=== PATIENT | female | born 1990 | race Caucasian/White ===

== ENCOUNTER 2020-01-23 15:25 | Outpatient (CLI) | payer OTHER, SELFPAY ==
[2020-01-23 15:33] VITALS: BMI 22.6
[2020-01-23 15:34] VITALS: BP 99/67; PULSE 90; TEMP 97.4; O2SAT 100
[2020-01-23 15:39] VITALS: BP 99/67; PULSE 90
--- NOTE | 2020-01-23 17:34 | OB.TRI.NOTE ---
History of Present Illness Date of Service: 01/23/20 Was patient seen by the physician?: No Reason For Visit: EXTENDED MONITORING Date of Service: 01/23/20 Final BUSHRA: 01/25/20 Final BUSHRA Source: US <20 weeks Gestational age: 39 Weeks and 5 Days Allergies No Known Allergies Allergy (Verified 01/23/20 15:48) - Pertinent Past Medical History Medical History: Past Medical History (Last Updated 08/27/18 @ 12:30 by Snehal Salinas) CVA (cerebral vascular accident) Surgical History: Past Surgical History (Last Updated 08/27/18 @ 12:30 by Snehal Salinas) S/P LASIK surgery NST - FHR Rate Baby A Baseline: 130 Variability:: Moderate Accelerations:: 15 x 15 Decelerations:: None NST Reactive:: Yes FHR Category:: Category I Uterine Activity:: irregular Impression/Plan 29yo @ 39.5 wks, here for monitoring for FHR deceleration in office 1) NST reactive and category 1 - well being established 2) DC HOME
== END 2020-01-23 17:31 | disposition home or self-care (01) ==
LOC: WPOUT 15:28 → OBT 15:28
PROVIDERS: PCP Family Medicine; Referring Provider Obstetrics & Gynecology; Visit Provider Obstetrics & Gynecology
DX: O36.8330 Maternal care for abnormalities of the fetal heart rate or rhythm, third trimester, not applicable or unspecified (principal); Z3A.39 39 weeks gestation of pregnancy
CPT/HCPCS: 59025; 59050; 99218; G0378

== ENCOUNTER 2020-02-03 19:00 | Inpatient (IN) | payer OTHER, SELFPAY ==
[2018-08-27 12:28] VITALS: BMI 18.6
[2020-02-03 20:13] VITALS: BP 116/72; PULSE 106; TEMP 37.6
[2020-02-03 20:15] VITALS: PULSE 91; O2SAT 98
[2020-02-03 20:16] VITALS: TEMP 37.6
--- NOTE | 2020-02-03 20:28 | PCM.HP.OB ---
- Problem List (1) Post term at 41 weeks gestation Status: Acute (2) Encounter for induction of labor Status: Acute (3) Vertebral artery dissection Status: Acute (4) Aneurysm artery, neck Status: Acute (5) Intramural leiomyoma of uterus Status: Acute History Date of Admission: 02/03/20 Final BUSHRA: 01/27/20 Final BUSHRA Source: US <20 weeks Gestational age: 41 Weeks and 0 Days History of this : This is a 29 year-old, G [1], P [0], at 41 weeks gestational age by LMP, confirmed by ultrasound. Presents for induction of labor post dates. uncomplicated. Medical History: Medical History (Last Updated 08/27/18 @ 12:30 by Snehal Salinas) CVA (cerebral vascular accident) I63.9 Surgical History: Surgical History (Last Updated 08/27/18 @ 12:30 by Snehal Salinas) S/P LASIK surgery Z98.890 Allergies No Known Allergies Allergy (Verified 02/03/20 20:21) Home Medications: Home Medications Vits [Prenatabs FA] 1 tab PO DAILY 02/03/20 Smoking Status: Never smoker Alcohol: None Number of Fetus(es): 1 NST - FHR Rate Baby A Baseline: 145 Variability:: Moderate Accelerations:: 15 x 15 Decelerations:: Late FHR Category:: Category II Uterine Activity:: None History Past Pregnancies: Past Pregnancies Delivery Date Name GA/ Weeks Outcome Route Wt Sex Labor Length Anesthesia Delivery Location Provider FOB Labs: Mom's Problem List Problem Status Onset Code Post term at 41 weeks gestation Acute O48.0, Z3A.41 Encounter for induction of labor Acute Z34.90 Vertebral artery dissection Acute I77.74 Aneurysm artery, neck Acute I72.0 Intramural leiomyoma of uterus Acute D25.1 Social History Smoking Status Never smoker GBS negative RPR negative Rubella equivocal HBsAG Negative HIV Negative B positive GC/CT negative Expected Infant Delivery Method: Spontaneous Vaginal Review of Systems Constitutional: Denies: Chills, Fever, Weight Change HEENT: Denies: Head Aches, Sinus Congestion, Sinus Drainage Cardiovascular: Denies: Chest Pain, Palpitations Respiratory: Denies: Cough, Shortness of breath at rest, Sputum production Gastrointestinal: Denies: Abdominal Pain, Nausea, Vomiting Genitourinary: Denies: Dysuria Neurological: Denies: Numbness, Tingling, Focal weakness Psychiatric: Denies: Anxiety, Depression, Homicidal Ideations, Suicidal Ideations Physical Exam Vitals: Vital Signs Temp Pulse BP Pulse Ox 99.7 F H 91 116/72 98 02/03/20 20:16 02/03/20 20:15 02/03/20 20:13 02/03/20 20:15 General: Alert, Oriented x3, Cooperative HEENT: Atraumatic, Normocephalic Cardiovascular: Regular rate, Regular Rhythm, No murmurs Lungs: Clear to auscultation, Normal air movement, No rhonchi, No wheeze Abdomen: Bowel Sounds Present, Gravid Extremities:: No edema Neurological: Deep Tendon Reflexes 2+/4 and Symmetrical. Negative for: Clonus COOKING SHOW HOST: Normal external genitalia Estimated gestational size: Appropriate for gestational size Presentation: Cephalic Cervix Dilation (cm): 1.5 - transcervical bradford catheter placed into cervical os without difficulty. Patient tolerated well. Station: -1 Effacement (%): 60 Assessment/Plan All Active Problems (Last Updated 08/27/18 @ 12:30 by Snehal Salinas) Post term at 41 weeks gestation (Acute) Encounter for induction of labor (Acute) Vertebral artery dissection (Acute) Aneurysm artery, neck (Acute) Intramural leiomyoma of uterus (Acute) This is a 29 year-old, G [1], P [0], at 41 weeks gestational age. A:Induction of labor Category 2 FHT P: 1) Admit for Induction of labor 2) Saline lock, routine labs 3) Bradford with low dose Pitocin. Unable to use cytotec due to occasional late deceleration. Reviewed risk 4) Epidural for pain management upon patient request 5) History of vertebral artery dissection with likely ischemic stroke/TIA in 08/2016. Seen Dr. Valdivia [facility] during . Ok for vaginal delivery from stroke standpoint and does not think high risk for complications. Avoid prolonged second stage and encourage open glottis pushing. Does not need aspirin or section. See official report in chart. 6) collaborative physician and updated on patient status
[2020-02-03 20:56] LABS: Absolute Lymphocyte Count 1.63 X10^3/uL (0.83-4.51); Absolute Neutrophil Count 6.7 X10^3/uL (2.0-7.7); Basophil# 0.02 X10^3/uL; Basophil% 0.2 % (0-1); Eosinophil# 0.02 X10^3/uL; Eosinophils% 0.2 % (0-5); Hematocrit 35.4 % (37-47); Hemoglobin 12.1 g/dL (12.0-15.0); Lymphocyte # 1.63 X10^3/ul (4.0); Lymphocyte % 17.9 % (19-41); Mean Corp Hgb Conc 34.2 g/dL (32-36); Mean Corpuscular Hgb 29.9 pg (27.0-32.0); Mean Corpuscular Volume 87.4 fL (81-99); Mean Platelet Vol. 10.2 fl (6.2-12.0); Monocyte# 0.65 X10^3/uL; Monocyte% 7.1 % (0-10); NRBC Flagged by Analyzer 0 % (0-5); Neutrophil # 6.74 X10^3/uL (2.7-7.7); Neutrophil % 73.8 % (47-70); Platelet Count 246 K/mm3 (150-450); RBC Distribution Width CV 13.2 % (11.6-14.6); RBC Distribution Width SD 41.3 fl (35.1-43.9); Red Blood Count 4.05 M/mm3 (4.2-5.4); White Blood Count 9.1 K/mm3 (4.4-11.0)
[2020-02-03 21:43] VITALS: BMI 23.9
[2020-02-03] MEDS: 0.9% Normal Saline Single 100 ML IV.SOLN. IY (21:55)
[2020-02-03 22:09] VITALS: BP 112/69; PULSE 101
[2020-02-03] MEDS: Lactated Ringers 1,000 ML 50 ML IV (22:23)
[2020-02-03 23:27] VITALS: BP 102/67; PULSE 108
[2020-02-04] VITALS (42 sets, daily range): BP systolic 88–120; BP diastolic 51–73; PULSE 69–112; RESP 15–18; TEMP 36.3–37.3; O2SAT 90–100
[2020-02-04] MEDS: Oxytocin 30 units/NS 500 ml 30 UNITS/500 ML IV.SOLN IV (00:10)
[2020-02-04] MEDS: Lactated Ringers 1,000 ML 200 ML IV ×2 (05:05→10:32)
[2020-02-04] MEDS: Lactated Ringers 500 ML 999 ML IV ×2 (05:25→07:54)
[2020-02-04] MEDS: fentaNYL-bupivacaine (epidural) 100 ML BAG EPIDURAL ×2 (06:44→10:46)
[2020-02-04] MEDS: Ondansetron 4 MG/2 ML Vial IV (07:55)
[2020-02-04] MEDS: Oxytocin 30 units/NS 500 ml 30 UNITS/500 ML IV.SOLN 334 UNITS IV (13:43)
--- NOTE | 2020-02-04 14:02 | PCM.OPRPT ---
Vaginal Delivery Maternal Presentation: Medically Indicated Induction Method of Induction: Pitocin, Negron Bulb, Amniotomy, Cytotec Medical Reason for Induction: - - 41 weeks Amniotic Membrane Rupture Type: Artificial Amniotic Fluid Description: Moderate meconium Final BUSHRA: 01/27/20 Gestational age: 41 Weeks and 1 Days Date of Procedure: 02/04/20 Pre-Operative Diagnosis: labor, MSf Post-Operative Diagnosis: same Surgery/ Procedure Performed: Spontaneous Vaginal Delivery Type of Anesthesia: Epidural Description of Procedure: A vigorous female was delivered SIXTO over bilateral first-degree vaginal lacerations. A tight nuchal cord x1 was reduced. The remainder the was delivered with maternal pushing and gentle traction only in less than 15 seconds. The Pitocin infusion was initiated for active management of the third stage. The cord was clamped and cut after 1 minute. The was attended to by the waiting nursing staff. The placenta was delivered spontaneously and intact. The cervix and vagina were intact. The small vaginal lacerations on both sides were repaired with 3-0 Vicryl Rapide in a running locked fashion. Hemostasis was noted. Sponge and needle counts were correct. A vaginal sweep was completed by me. Presentation: SIXTO Placental Delivery Description: Spontaneous Placenta Disposition: [facility] Cord Vessel Description: 3 Vessels Nuchal Cord Compression: Without compression Cord Entanglement: Around neck x 1, tight Drain: Negron to straight drain Estimated Blood Loss: 400 Infant A gender: Female Episiotomy Description: None Laceration: 1st degree - vaginal Medications given after delivery: IV Pitocin Complications: None
--- NOTE | 2020-02-04 22:50 | NURSING ---
pt able to void, RN overheard. large void noted but pt missed hat
[2020-02-05] VITALS (13 sets, daily range): BP systolic 83–104; BP diastolic 52–60; PULSE 73–99; RESP 16–20; TEMP 36.3–36.9; O2SAT 98
[2020-02-05] MEDS: Senna/Docusate Sodium 1 Tablet PO (02:12)
[2020-02-05] MEDS: Naproxen 250 MG Tablet 500 MG PO ×2 (02:12→15:56)
--- NOTE | 2020-02-05 09:03 | PCM.PN.OB ---
Patient Problems: Active and Suspected Problems (Last Updated 08/27/18 @ 12:30 by Snehal Salinas) Post term at 41 weeks gestation (Acute) Encounter for induction of labor (Acute) Vertebral artery dissection (Acute) Aneurysm artery, neck (Acute) Intramural leiomyoma of uterus (Acute) Subjective: pain well controlled, average lochia - Physical Exam Vitals/I&O's: Vital Signs Temp Pulse Resp BP Pulse Ox 97.7 F L 91 20 H 86/55 L 98 02/05/20 08:46 02/05/20 08:47 02/05/20 08:45 02/05/20 08:47 02/05/20 08:45 Oxygen Delivery Method Room Air Weight: 61.235 kg Body Mass Index (BMI) 23.9 Finger Stick Blood Glucose 160 Intake and Output for Last 24 Hours 02/03/20 02/04/20 02/05/20 23:59 23:59 23:59 Intake Total 4161.37 / 4161.37 Output Total 2200 / 2200 Balance 1961.37 / 1961.37 General: Alert, Cooperative, No apparent distress Current Medications Acetaminophen (Tylenol) 1,000 mg PO Q8H PRN PRN PRN Reason: Pain Score 1-3/10 Bisacodyl (Dulcolax) 10 mg RECTAL UD PRN PRN Reason: If no BM Dibucaine (Dibucaine) 1 applic TOPICAL TID PRN PRN; Protocol PRN Reason: Discomfort Hydrocortisone (Hytone) 1 applic TOPICAL TID PRN PRN; Protocol PRN Reason: Discomfort Methylergonovine Maleate (Methergine) 0.2 mg IM X1 PRN PRN Reason: Excess bleeding/uterine atony Naproxen (Naprosyn) 500 mg PO Q8H PRN PRN PRN Reason: Pain Score 1-3/10 Last Admin: 02/05/20 02:12 Dose: 500 mg Documented by: Ondansetron HCl (Zofran) 4 mg IV Q4H PRN PRN PRN Reason: Nausea Prochlorperazine Edisylate (Compazine Iv) 10 mg IV Q6H PRN PRN PRN Reason: NAUSEA/VOMITING Senna/Docusate Sodium (Senokot-S, Chloe-Colace) 1 - 2 tablet PO DAILY PRN PRN PRN Reason: Constipation Last Admin: 02/05/20 02:12 Dose: 2 tablet Documented by: Simethicone (Mylicon) 80 mg PO HS PRN PRN Reason: Indigestion/Stomach pain Sodium Chloride () 5 - 15 ml IV UD PRN PRN Reason: SALINE FLUSH Medical Necessity - Tobacco Use Smoking Status: Never smoker Assessment/Plan All Active Problems (Last Updated 08/27/18 @ 12:30 by Snehal Salinas) Post term at 41 weeks gestation (Acute) Encounter for induction of labor (Acute) Vertebral artery dissection (Acute) Aneurysm artery, neck (Acute) Intramural leiomyoma of uterus (Acute) PPD#1 doing well routine care and doing well
[2020-02-06 01:05] VITALS: BP 94/52; PULSE 64; PULSE 90; RESP 14; TEMP 36.8
[2020-02-06] MEDS: Naproxen 250 MG Tablet 500 MG PO (02:19)
--- NOTE | 2020-02-06 08:22 | PCM.PN.OB ---
Patient Problems: Active and Suspected Problems (Last Updated 08/27/18 @ 12:30 by Snehal Salinas) Post term at 41 weeks gestation (Acute) Encounter for induction of labor (Acute) Vertebral artery dissection (Acute) Aneurysm artery, neck (Acute) Intramural leiomyoma of uterus (Acute) Subjective: Pain well controlled. Average lochia without difficulty. No bowel movement yet but passing gas. Tolerating regular diet. - Physical Exam Vitals/I&O's: Vital Signs Temp Pulse Resp BP Pulse Ox 98.2 F 64 14 94/52 L 98 02/06/20 01:05 02/06/20 01:05 02/06/20 01:05 02/06/20 01:05 02/05/20 12:20 Oxygen Delivery Method Room Air Weight: 61.235 kg Body Mass Index (BMI) 23.9 Finger Stick Blood Glucose 160 Intake and Output for Last 24 Hours 02/04/20 02/05/20 02/06/20 23:59 23:59 23:59 Intake Total 4161.37 / 4161.37 Output Total 2200 / 2200 Balance 1961.37 / 1961.37 General: Alert, Cooperative, No apparent distress Current Medications Acetaminophen (Tylenol) 1,000 mg PO Q8H PRN PRN PRN Reason: Pain Score 1-3/10 Bisacodyl (Dulcolax) 10 mg RECTAL UD PRN PRN Reason: If no BM Dibucaine (Dibucaine) 1 applic TOPICAL TID PRN PRN; Protocol PRN Reason: Discomfort Hydrocortisone (Hytone) 1 applic TOPICAL TID PRN PRN; Protocol PRN Reason: Discomfort Methylergonovine Maleate (Methergine) 0.2 mg IM X1 PRN PRN Reason: Excess bleeding/uterine atony Naproxen (Naprosyn) 500 mg PO Q8H PRN PRN PRN Reason: Pain Score 1-3/10 Last Admin: 02/06/20 02:19 Dose: 500 mg Documented by: Ondansetron HCl (Zofran) 4 mg IV Q4H PRN PRN PRN Reason: Nausea Prochlorperazine Edisylate (Compazine Iv) 10 mg IV Q6H PRN PRN PRN Reason: NAUSEA/VOMITING Senna/Docusate Sodium (Senokot-S, Chloe-Colace) 1 - 2 tablet PO DAILY PRN PRN PRN Reason: Constipation Last Admin: 02/05/20 02:12 Dose: 2 tablet Documented by: Simethicone (Mylicon) 80 mg PO PCHS PRN PRN Reason: Indigestion/Stomach pain Sodium Chloride () 5 - 15 ml IV UD PRN PRN Reason: SALINE FLUSH Medical Necessity - Tobacco Use Smoking Status: Never smoker Assessment/Plan All Active Problems (Last Updated 08/27/18 @ 12:30 by Snehal Salinas) Post term at 41 weeks gestation (Acute) Encounter for induction of labor (Acute) Vertebral artery dissection (Acute) Aneurysm artery, neck (Acute) Intramural leiomyoma of uterus (Acute) day #2 status post vaginal delivery. Patient doing well. Working on breast-feeding. Discharge home today.
--- NOTE | 2020-02-06 08:24 | DCINST_ITS ---
Discharge Diet: No Restrictions Discharge Activity: Return to Normal Activity, May not drive while taking narcotic pain medications., May Shower May resume sexual activity in: 4-6 weeks Additional Activity Instructions:: Nothing in the vagina for 4-6 weeks. You may return to work/school in 6 weeks. Call your doctor if your incision/area has: Continuous Slow Oozing, Sudden Increased Bleeding, Increased Pain/ Swelling, Increased Redness, Foul Smelling Discharge Additional Instructions: If you experience any of the following, contact your healthcare provider. * Bleeding that soaks a pad every hour for 2 hours * Fever 100.4 or higher * Unrelieved incision or abdominal pain * Swelling, redness, discharge or bleeding from your incision or episiotomy site * Your incision begins to separate * Problems urinating (including inability to urinate or burning while urinating). * Visual changes * Severe headache * Flu-like symptoms * Pain or redness in one of both of your breasts * Pain, warmth, tenderness or swelling in your legs, especially the calf area * Frequent nausea and vomiting * Symptoms of depression or anxiety If you experience any of the following, call 911 or go to the nearest Emergency Room. * Chest pain * Problems breathing * Seizure activity * Partial or complete paralysis of a body part, slurred speech, weakness or drooping of the face, or a sudden inability to walk or hold your balance Allergies/Adverse Reactions: Allergies No Known Allergies Allergy (Verified 02/03/20 20:21) Medications to take at Discharge Vits [Prenatabs FA ] 1 tab PO DAILY 02/03/20 Please Follow Up With: Loree Dasilva MD - [phone] When: Call to make an appointment with your provider's office in 1-2 and 6 weeks or as needed Primary Care Physician: Zuleima Carnes MD [Primary Care Provider] - Test Results: Test results from this visit will be discussed in further detail at your follow- up appointment, if applicable.
--- NOTE | 2020-02-06 08:24 | PCM.DCVAG ---
Discharge Diet: No Restrictions Discharge Activity: Return to Normal Activity, May not drive while taking narcotic pain medications., May Shower May resume sexual activity in: 4-6 weeks Additional Activity Instructions:: Nothing in the vagina for 4-6 weeks. You may return to work/school in 6 weeks. Call your doctor if your incision/area has: Continuous Slow Oozing, Sudden Increased Bleeding, Increased Pain/ Swelling, Increased Redness, Foul Smelling Discharge Additional Instructions: If you experience any of the following, contact your healthcare provider. Bleeding that soaks a pad every hour for 2 hours Fever 100.4 or higher Unrelieved incision or abdominal pain Swelling, redness, discharge or bleeding from your incision or episiotomy site Your incision begins to separate Problems urinating (including inability to urinate or burning while urinating). Visual changes Severe headache Flu-like symptoms Pain or redness in one of both of your breasts Pain, warmth, tenderness or swelling in your legs, especially the calf area Frequent nausea and vomiting Symptoms of depression or anxiety If you experience any of the following, call 911 or go to the nearest Emergency Room. Chest pain Problems breathing Seizure activity Partial or complete paralysis of a body part, slurred speech, weakness or drooping of the face, or a sudden inability to walk or hold your balance Allergies/Adverse Reactions: Allergies No Known Allergies Allergy (Verified 02/03/20 20:21) Medications to take at Discharge Vits [Prenatabs FA ] 1 tab PO DAILY 02/03/20 Please Follow Up With: Loree Dasilva MD - [phone] When: Call to make an appointment with your provider's office in 1-2 and 6 weeks or as needed Primary Care Physician: Zuleima Carnes MD [Primary Care Provider] - Test Results: Test results from this visit will be discussed in further detail at your follow-up appointment, if applicable.
[2020-02-06 09:30] VITALS: BP 105/69; PULSE 89; RESP 16; TEMP 36.8
[2020-02-06 09:59] VITALS: BP 105/69; PULSE 89; TEMP 36.8
== END 2020-02-06 13:00 | disposition home or self-care (01) | DRG 807 ==
PROVIDERS: Obstetrics & Gynecology; Admitting Provider Obstetrics & Gynecology; PCP Family Medicine; Referring Provider Obstetrics & Gynecology; Visit Provider Advanced Practice Midwife
DX: O48.0 Post-term pregnancy (principal); Z37.0 Single live birth; Z3A.41 41 weeks gestation of pregnancy; D25.1 Intramural leiomyoma of uterus; O34.13 Maternal care for benign tumor of corpus uteri, third trimester; O70.0 First degree perineal laceration during delivery; O76 Abnormality in fetal heart rate and rhythm complicating labor and delivery; O69.1XX0 Labor and delivery complicated by cord around neck, with compression, not applicable or unspecified
CPT/HCPCS: 59025; 59050; 85025; 86850; 86900; 86901; 99218; J7120; G0378; J2405

== ENCOUNTER → 2020-02-12 11:45 | Outpatient (CLI) | payer OTHER, SELFPAY ==
[2020-02-03 21:43] VITALS: BMI 23.9
== END ==
PROVIDERS: PCP Family Medicine; Referring Provider Obstetrics & Gynecology; Visit Provider Obstetrics & Gynecology
DX: R63.3 Feeding difficulties (principal)
CPT/HCPCS: 96158

== ENCOUNTER → 2020-10-10 13:37 | Outpatient (CLI) | payer OTHER, SELFPAY ==
[2020-10-10 15:55] LABS: Thyroid Stim Hormone (TSH) 2.68 uIU/mL (0.358-3.74)
== END ==
PROVIDERS: PCP Family Medicine; Referring Provider Family Medicine; Visit Provider Family Medicine
DX: R53.83 Other fatigue (principal)
CPT/HCPCS: 36415; 84443

== ENCOUNTER → 2021-07-28 16:51 | Outpatient (CLI) | payer OTHER, SELFPAY | PROVIDERS: PCP Family Medicine; Visit Provider Family Medicine | DX: Z20.822 Contact with and (suspected) exposure to COVID-19 (principal) | CPT/HCPCS: 87635; U0005; U0003 ==

== ENCOUNTER 2022-03-19 06:00 | Day surgery (SDC) | payer OTHER, SELFPAY ==
--- NOTE | 2022-03-18 15:57 | PCM.HP.BLA ---
History and Physical Date of Admission: 03/19/22 Pre-Op History and Physical HPI: The patient is a 31 year old female presenting for pre-operative visit. She is scheduled for Suction D&C, for 11week size SAB on 03/19/22. Procedure discussed along with risks, benefits and complications. Other alternatives discussed for management. Consent form signed? Yes. PAST MEDICAL HISTORY Diagnosis Date ? Craniostenosis ? anxiety ? anxiety ? Stroke, vertebral artery (HCC) 09/08/2016 Right vertebral artery disection ? Uterine fibroid seen on ultrasound 09/06/2019 PAST SURGICAL HISTORY Procedure Laterality Date ? INSERTION OF IUD 06/29/2017 paragard-removed ? LASIK 2014 both eyes ? PAST SURGICAL HISTORY OF Craniostenosis Current Outpatient Medications Medication Sig Dispense Refill ? pyridoxine HCl, vitamin B6, (VITAMIN B-6 ORAL) Take by mouth. ? doxylamine succinate (UNISOM, DOXYLAMINE, ORAL) Take by mouth. ? ondansetron (ZOFRAN) 8 mg tablet Take 1 tablet by mouth every 8 hours as needed for nausea/vomiting. 1/2 TO ONE PO 30 tablet 1 ? [id number]-Ngp-Fe-FA ( VITAMIN) tab Take 1 tablet by mouth once daily. ? miSOPROStol (CYTOTEC) 200 mcg tablet Use 2 tablets vaginally one time only for [address] 2 tablets vaginally the morning of the procedure 2 tablet 0 No current facility-administered medications for this visit. ALLERGIES: Patient has no known allergies. PERSONAL HISTORY: Social History Tobacco Use ? Smoking status: Never Smoker ? Smokeless tobacco: Never Used Vaping Use ? Vaping Use: Never used Substance Use Topics ? Alcohol use: Not Currently Comment: rare ? Drug use: No FAMILY HISTORY: FAMILY HISTORY Problem Relation Age of Onset ? Cancer Mother lymphoma ? Heart Father ? other (benign brain tumor) Father ? None Sister ? None Sister ? None Brother ? other (other) Maternal Grandmother ? Parkinson?s Disease Maternal Grandfather ? Macular Degen Paternal Grandmother ? other (ALS) Paternal Grandfather ? No Known Problems Daughter REVIEW OF SYMPTOMS: GENERAL: denies fevers or chills ENDOCRINOLOGY: has not been on steroids Cardiology : denies palpitations or chest pain Respiratory: denies SOB or cough Hematology: denies history of prolonged bleeding or easy bruising or VTE Allergy: Denies history of personal or family history of allergy to anesthesia PHYSICAL EXAMINATION: VITALS: Blood pressure 104/62, weight 110 lb (49.9 kg), last menstrual period 11/18/2021. GENERAL: The patient is well nourished, well hydrated in no acute distress. , The patient is oriented to time, place, and person. NECK: Supple. No lynphadenopathy, normal thyroid, no thyromegaly. LUNGS: Clear to auscultation bilaterally. no wheezes, rhonchi or rales HEART: Regular rate and rhythm, Normal heart sounds and No murmurs or gallops GENITALIA: Normal external genitalia, Urethral meatus normal, Bladder nontender, normal vagina and normal vaginal tone, normal cervix, normal uterus, size and consistency, normal adnexa without masses or tenderness and perineum WNL IMPRESSION: @ 17w1d by dates, 11w 3 days CRL without cardiac activity PLAN: The risks/benefits/alternatives and personal involved for the planned suction D&C were reviewed with the patient. Her questions were answered to her satisfaction and she desires to proceed. Consent was signed. I reviewed with her postop instructions and expectations. I have reviewed and updated past medical and surgical history, medications and allergies Assessment & Plan Assessment/Plan (1) Missed with demise before 20 completed weeks of gestation:
[2022-03-19] VITALS (7 sets, daily range): BP systolic 101–110; BP diastolic 48–79; PULSE 64–86; RESP 10–18; TEMP 37.2–37.4; O2SAT 99–100; BMI 19.1
--- NOTE | 2022-03-19 | POC_PTH ---
PATIENT: PAGE MEANS [place] [facility] [place][id number] AGE/SX: 31/F ROOM: RE03/19/[address]: Dr. Loree Dasilva MD : 1990 BED: DIS: 03/19/2022 SPEC #: [id number] RECD: 03/19/22 11:01 STATUS: BRADY ARMIJO #: [id number] HIEN: 03/19/22 00:[address]: Loree Dasilva DEPT: SURGICAL PATHOLOGY RECD BY: Arnel Lovett ENTERED: 03/19/22 11:02 SP TYPE: PROD CONC OTHR DR: Dr. Zuleima Carnes MD Tissues: Product of conception, NOS Procedures: Surgery Specimen Level IV HEADER OPERATION: Suction dilation and curettage, Anora testing PRE-OP DIAGNOSIS: Missed with demise before 20 completed weeks of gestation TISSUE SUBMITTED: Products of conception MICROSCOPIC DIAGNOSIS Products of conception: Immature chorionic villi and decidua (products of conception). See comment. PHILLY:raven 03/22/2022 COMMENT Results of Anora study will be reported as an addendum. MICROSCOPIC DESCRIPTION Slides are reviewed. GROSS DESCRIPTION Received in fixative is one container labeled with the patient's name and designated products of conception. The specimen consists of multiple irregular fragments of pink-toribio soft tissue that in aggregate measure 12 x 12 x 2 cm. parts are not grossly recognized. Manufacturing Teacher portions are submitted for Anora. Manufacturing Teacher portions are submitted in one cassette. / AM:raven 03/19/2022 TC:5 CPT: 44257
[2022-03-19 07:15] LABS: Hematocrit 39.1 % (37-47); Hemoglobin 13.5 g/dL (12.0-15.0); Mean Corp Hgb Conc 34.5 g/dL (32-36); Mean Corpuscular Hgb 29.1 pg (27.0-32.0); Mean Corpuscular Volume 84.3 fL (81-99); Mean Platelet Vol. 9.8 fl (6.2-12.0); Platelet Count 271 K/mm3 (150-450); RBC Distribution Width CV 12.7 % (11.6-14.6); RBC Distribution Width SD 38.4 fl (35.1-43.9); Red Blood Count 4.64 M/mm3 (4.2-5.4); White Blood Count 6.3 K/mm3 (4.4-11.0)
[2022-03-19] MEDS: Lactated Ringers 1,000 ML 70 ML IV (07:16)
[2022-03-19] MEDS: Doxycycline 100 MG CAPSULE 200 MG PO (07:17)
[2022-03-19] MEDS: Acetaminophen 500 MG Tablet 1000 MG PO (07:17)
[2022-03-19] MEDS: Lidocaine 1% /Epi 1:100 (20ml) 20 ML Vial (07:45)
[2022-03-19 08:03] LABS: hCG Titer Quant., Serum 65751 mIU/mL (1-3)
--- NOTE | 2022-03-19 08:05 | OP.PCM_ITS ---
Report of Operation Date of Procedure: 03/19/22 Pre-Operative Diagnosis: missed , 17 weeks Post-Operative Diagnosis: same Surgery/Procedure Performed:: suction D&C under ultrasound guidance Description of Surgical Findings:: Normal cervix and vagina. Antevereted uterus, 14 week size. Large amount of products of conception Surgeon: Loree Dasilva automatic furnace operator: None Type of Anesthesia: MAC/Supplemental/Local Anesthesiologist: Dustin Patel Special Medications: none Specimen's removed: products of conception Drains: none Estimated Blood Loss (mL): 30 Fluids Replaced: 500 Description of Procedure: The patient was taken to the operating room where she was prepped and draped in a dorsolithotomy position. A bimanual examination was done and confirmed the uterus to be 14 weeks size and [anteverted]. A weighted speculum was placed in the vagina and the anterior lip of the cervix was grasped with a single-tooth tenaculum. 10 cc of 1% lidocaine with dilute epinephrine solution were used for paracervical block. The cervix was dilated serially. A 12 mm suction curette was placed to the uterine fundus and the suction was created. Several passes were made to remove clots and products of conception. When minimal tissue was returning a gentle sharp curettage was then done of the uterine cavity. The uterine cry was appreciated and another gentle pass was made with the suction curette. At this point there is no active bleeding from the uterus and minimal blood and no further products of conception were removed. The instruments removed from the cervix and the cervix was observed and no active bleeding was identified. The tenaculum was removed off the cervix and hemostasis of the tenaculum site was assured. The instruments were removed from the vagina and the vaginal sweep was completed by me. Sponge and needle counts were correct. The patient was taken to the recovery room in stable condition. Findings: 14 week size uterus, normal cervix and vagina. Specimen: Products of conception Grafts/Implants Used: none Procedure Start Time: 07:45 Procedure Stop Time: 08:00 Complications none Admit VTE Documentation VTE Present on Admission: No VTE Mechan Device Prophylaxis: SCD's VTE Pharm Prophylaxis ordered?: No Reason prophylaxis not ordered:: Procedure Not Indicated
--- NOTE | 2022-03-19 08:08 | PCM.DC ---
Discharge Instructions Diet Discharge Diet: No restrictions Activity May resume sexual activity in: 2 weeks Lifting Restrictions: none Dressing / Incision Call your doctor if your incision/area has: Sudden Increased Bleeding and Foul Smelling Discharge Call your doctor if you observe: Fever of 101 or Higher and Using more than 1 pad per hour (for 2 hrs in a row) Follow Up Care Please Follow Up With: Loree Dasilva MD When: 2-4 weeks or as needed. Call [phone] to make an appointment or with any concerns. Test Results: Test results from this visit will be discussed in further detail at your follow-up appointment, if applicable. Discharge Plan Admission Primary Reason for Your Visit: Suction D&C Attending Provider: Loree Dasilva Primary Care Provider: Zuleima Carnes Discharge Orders/Prescriptions Prescriptions: Continued vit,[id number] 1 TABLET tablet 1 tab PO DAILY RF: 0 ondansetron HCl 4 mg Tablet 4 mg PO Q6H PRN (Reason: Nausea) RF: 0 Discontinued misoprostol 200 mcg tablet 400 mcg vaginal X1 RF: 0 Referrals / Follow Up: Zuleima Carnes MD [Primary Care Provider] - Disposition Disposition (needs filled in before D/C Order can be placed): Home, Self Care
[2022-03-24 08:28] LABS: Pathology Specimen OB SEE PATHOLOGY REPORT
== END 2022-03-19 23:59 | disposition home or self-care (01) ==
LOC: SDC 06:03 → AC 06:04
PROVIDERS: PCP Family Medicine; Referring Provider Obstetrics & Gynecology; Visit Provider Obstetrics & Gynecology
DX: O02.1 Missed abortion (principal); Z3A.17 17 weeks gestation of pregnancy
CPT/HCPCS: 59820; 01965; 84702; 85027; 86850; 86900; 86901; 87426; 88305; J7120; J2405

== ENCOUNTER → 2022-04-08 | Outpatient (CLI) | payer OTHER, SELFPAY ==
[2022-04-08 18:15] LABS: hCG Titer Quant., Serum 79 mIU/mL (1-3)
== END | disposition home or self-care (01) ==
LOC: LAB.FUTURE 15:37
PROVIDERS: PCP Family Medicine; Visit Provider Obstetrics & Gynecology
DX: O08.89 Other complications following an ectopic and molar pregnancy (principal)
CPT/HCPCS: 36415; 84702

== ENCOUNTER 2022-04-15 13:45 | Outpatient (CLI) | payer OTHER, SELFPAY ==
[2022-04-15 16:27] LABS: hCG Titer Quant., Serum 49 mIU/mL (1-3)
== END 2022-04-15 23:59 | disposition home or self-care (01) ==
LOC: MFPLAB 13:48
PROVIDERS: PCP Family Medicine; Referring Provider Family Medicine; Visit Provider Obstetrics & Gynecology
DX: O08.89 Other complications following an ectopic and molar pregnancy (principal)
CPT/HCPCS: 36415; 84702

== ENCOUNTER 2022-04-22 14:32 | Outpatient (CLI) | payer OTHER, SELFPAY ==
[2022-04-22 20:20] LABS: hCG Titer Quant., Serum 27 mIU/mL (1-3)
== END 2022-04-22 23:59 | disposition home or self-care (01) ==
LOC: MFPLAB 14:35
PROVIDERS: PCP Family Medicine; Referring Provider Family Medicine; Visit Provider Obstetrics & Gynecology
DX: O08.89 Other complications following an ectopic and molar pregnancy (principal)
CPT/HCPCS: 36415; 84702

== ENCOUNTER → 2022-04-29 | Outpatient (CLI) | payer OTHER, SELFPAY ==
[2022-04-29 18:08] LABS: hCG Titer Quant., Serum 17 mIU/mL (1-3)
== END | disposition home or self-care (01) ==
LOC: MFPLAB 16:07
PROVIDERS: PCP Family Medicine; Visit Provider Obstetrics & Gynecology
DX: O08.89 Other complications following an ectopic and molar pregnancy (principal)
CPT/HCPCS: 36415; 84702

== ENCOUNTER → 2022-05-06 | Outpatient (CLI) | payer OTHER, SELFPAY ==
[2022-05-06 15:57] LABS: hCG Titer Quant., Serum 12 mIU/mL (1-3)
== END | disposition home or self-care (01) ==
LOC: MFPLAB 14:13
PROVIDERS: PCP Family Medicine; Referring Provider Family Medicine; Visit Provider Obstetrics & Gynecology
DX: O08.89 Other complications following an ectopic and molar pregnancy (principal)
CPT/HCPCS: 36415; 84702

== ENCOUNTER → 2022-05-13 | Outpatient (CLI) | payer OTHER, SELFPAY ==
[2022-05-13 18:51] LABS: hCG Titer Quant., Serum 9 mIU/mL (1-3)
== END | disposition home or self-care (01) ==
LOC: MFPLAB 16:36
PROVIDERS: PCP Family Medicine; Referring Provider Family Medicine; Visit Provider Obstetrics & Gynecology
DX: O08.89 Other complications following an ectopic and molar pregnancy (principal)
CPT/HCPCS: 36415; 84702

== ENCOUNTER → 2022-05-20 | Outpatient (CLI) | payer OTHER, SELFPAY ==
[2022-05-20 17:49] LABS: hCG Titer Quant., Serum 7 mIU/mL (1-3)
== END | disposition home or self-care (01) ==
LOC: MFPLAB 15:50
PROVIDERS: PCP Family Medicine; Referring Provider Family Medicine; Visit Provider Obstetrics & Gynecology
DX: O08.89 Other complications following an ectopic and molar pregnancy (principal)
CPT/HCPCS: 36415; 84702

== ENCOUNTER → 2022-05-28 | Outpatient (CLI) | payer OTHER, SELFPAY ==
[2022-05-28 18:41] LABS: hCG Titer Quant., Serum 5 mIU/mL (1-3)
== END | disposition home or self-care (01) ==
LOC: MFPLAB 14:31
PROVIDERS: PCP Family Medicine; Visit Provider Obstetrics & Gynecology
DX: O08.89 Other complications following an ectopic and molar pregnancy (principal)
CPT/HCPCS: 36415; 84702

== ENCOUNTER → 2022-06-04 | Outpatient (CLI) | payer OTHER, SELFPAY ==
[2022-06-04 18:03] LABS: hCG Titer Quant., Serum 4 mIU/mL (1-3)
== END | disposition home or self-care (01) ==
LOC: MFPLAB 15:33
PROVIDERS: PCP Family Medicine; Visit Provider Obstetrics & Gynecology
DX: O08.89 Other complications following an ectopic and molar pregnancy (principal)
CPT/HCPCS: 36415; 84702

== ENCOUNTER → 2022-06-17 | Outpatient (CLI) | payer OTHER, SELFPAY ==
[2022-06-17 18:08] LABS: hCG Titer Quant., Serum 3 mIU/mL (1-3)
== END | disposition home or self-care (01) ==
PROVIDERS: PCP Family Medicine; Referring Provider Family Medicine; Visit Provider Obstetrics & Gynecology
DX: O08.89 Other complications following an ectopic and molar pregnancy (principal)
CPT/HCPCS: 36415; 84702

== ENCOUNTER → 2022-07-02 | Outpatient (CLI) | payer OTHER, SELFPAY ==
[2022-07-02 17:49] LABS: hCG Titer Quant., Serum 2 mIU/mL (1-3)
== END | disposition home or self-care (01) ==
PROVIDERS: PCP Family Medicine; Referring Provider Family Medicine; Visit Provider Obstetrics & Gynecology
DX: O08.89 Other complications following an ectopic and molar pregnancy (principal)
CPT/HCPCS: 36415; 84702

== ENCOUNTER → 2022-07-26 | Outpatient (CLI) | payer OTHER, SELFPAY ==
[2022-07-26 11:52] LABS: hCG Titer Quant., Serum < 1 mIU/mL (1-3)
[2022-07-26 13:18] LABS: Progesterone Level 13.92 ng/mL (See Comment)
[2022-08-05 14:08] LABS: Testosterone, % Free 1.48 % (0.50-2.80); Testosterone, Total 7 ng/dL (8-60)
== END | disposition home or self-care (01) ==
LOC: LAB 09:26
PROVIDERS: PCP Family Medicine; Referring Provider Obstetrics & Gynecology; Visit Provider Obstetrics & Gynecology
DX: O08.89 Other complications following an ectopic and molar pregnancy (principal)
CPT/HCPCS: 36415; 82627; 84144; 84402; 84403; 84702; 82626

== ENCOUNTER → 2022-08-23 | Outpatient (CLI) | payer OTHER, SELFPAY ==
[2022-08-23 18:30] LABS: Cholesterol 189 mg/dL (200); High Density Lipoprotein 56 mg/dL; Thyroid Stim Hormone (TSH) 2.24 uIU/mL (0.358-3.74); Triglycerides 75 mg/dL; Very Low Density Lipoprotein 15 mg/dL (5-40)
== END | disposition home or self-care (01) ==
LOC: MFPLAB 16:48
PROVIDERS: PCP Family Medicine; Referring Provider Family Medicine; Visit Provider Family Medicine
DX: Z00.00 Encounter for general adult medical examination without abnormal findings (principal); K59.00 Constipation, unspecified
CPT/HCPCS: 36415; 80061; 84443

== ENCOUNTER → 2023-01-25 | Outpatient (CLI) | payer OTHER, SELFPAY ==
[2023-01-25 12:22] LABS: Erythrocyte Sedimentation Rate 3 mm/hr (0-30)
[2023-01-25 12:28] LABS: Absolute Lymphocyte Count 1.21 X10^3/uL (0.83-4.51); Absolute Neutrophil Count 2.3 X10^3/uL (2.0-7.7); Basophil# 0.01 X10^3/uL; Basophil% 0.3 % (0-1); Eosinophil# 0.03 X10^3/uL; Eosinophils% 0.8 % (0-5); Hematocrit 39.9 % (37-47); Hemoglobin 13.4 g/dL (12.0-15.0); Lymphocyte # 1.21 X10^3/ul (0.83-4.51); Mean Corp Hgb Conc 33.6 g/dL (32-36); Mean Corpuscular Hgb 29.1 pg (27.0-32.0); Mean Corpuscular Volume 86.6 fL (81-99); Mean Platelet Vol. 10.5 fl (6.2-12.0); Monocyte# 0.35 X10^3/uL; NRBC Flagged by Analyzer 0 % (0-5); Neutrophil # 2.29 X10^3/uL (2.7-7.7); Neutrophil % 58.6 % (47-70); Platelet Count 311 K/mm3 (150-450); RBC Distribution Width CV 11.9 % (11.6-14.6); RBC Distribution Width SD 37.6 fl (35.1-43.9); Red Blood Count 4.61 M/mm3 (4.2-5.4); White Blood Count 3.9 K/mm3 (4.4-11.0)
[2023-01-25 12:39] LABS: Internal QC Validated? YES +Cl - CLEAR BKGD; Monotest Negative (Negative)
[2023-01-25 13:00] LABS: ALB/GLOB Ratio 1.1 RATIO (0.9-2.4); AST(SGOT) 17 U/L (15-37); Alanine Aminotransfer ALT/SGPT 18 U/L (13-56); Albumin, Serum 3.9 g/dL (3.2-5.0); Alkaline Phosphatase 53 U/L (45-117); Anion Gap 8 (5-15); BUN 18 mg/dL (7-18); BUN/Creat Ratio 22.8 RATIO (10-20); Calcium,Total 9.4 mg/dL (8.5-10.1); Chloride 106 mmol/L (98-107); Creatinine, Serum 0.79 mg/dL (0.55-1.02); EST Glomerular Filtration Rate 88 mL/min (>60); Est Glom Filt Rate - Afr Amer 107 mL/min (>60); Globulin 3.4 g/dL (2.2-4.2); Glucose 95 mg/dL (74-106); Potassium 3.4 mmol/L (3.5-5.1); Protein, Total 7.3 g/dL (6.4-8.2); Sodium Level 140 mmol/L (136-145); Thyroid Stim Hormone (TSH) 3.14 uIU/mL (0.358-3.74)
== END | disposition home or self-care (01) ==
LOC: MFPLAB 10:15
PROVIDERS: PCP Family Medicine; Referring Provider Family Medicine; Visit Provider Family Medicine
DX: R53.81 Other malaise (principal)
CPT/HCPCS: 36415; 80053; 84443; 85025; 85652; 86308

== ENCOUNTER → 2023-02-22 | Outpatient (CLI) | payer OTHER, SELFPAY ==
[2023-02-22 18:11] LABS: Absolute Lymphocyte Count 1.39 X10^3/uL (0.83-4.51); Absolute Neutrophil Count 4.6 X10^3/uL (2.0-7.7); Basophil# 0.04 X10^3/uL; Basophil% 0.6 % (0-1); Eosinophil# 0.04 X10^3/uL; Eosinophils% 0.6 % (0-5); Hematocrit 39.4 % (37-47); Hemoglobin 13.3 g/dL (12.0-15.0); Lymphocyte # 1.39 X10^3/ul (0.83-4.51); Lymphocyte % 21.3 % (19-41); Mean Corp Hgb Conc 33.8 g/dL (32-36); Mean Corpuscular Hgb 29.1 pg (27.0-32.0); Mean Corpuscular Volume 86.2 fL (81-99); Monocyte# 0.39 X10^3/uL; NRBC Flagged by Analyzer 0 % (0-5); Neutrophil # 4.64 X10^3/uL (2.7-7.7); Neutrophil % 71.2 % (47-70); Platelet Count 267 K/mm3 (150-450); RBC Distribution Width CV 11.9 % (11.6-14.6); RBC Distribution Width SD 37.5 fl (35.1-43.9); Red Blood Count 4.57 M/mm3 (4.2-5.4); White Blood Count 6.5 K/mm3 (4.4-11.0)
[2023-02-22 18:34] LABS: Vitamin B12 845 pg/mL (211-911)
[2023-02-22 18:47] LABS: Ferritin 26 ng/mL (8-252); Free T3 2.4 pg/mL (2.18-3.98); T4 Free Direct 0.92 ng/dL (0.76-1.46); Thyroid Stim Hormone (TSH) 2.76 uIU/mL (0.358-3.74)
[2023-02-25 09:50] LABS: Anti-Thyroglobulin AB < 1.0 IU/mL (0.0-0.9); Thyroglobulin, Serum Qt. 15.5 ng/mL (1.5-38.5); Thyroid Peroxidase AB < 9 IU/mL (0-34)
[2023-02-25 13:08] LABS: Vitamin D 1,25-Dihydroxy 45.6 pg/mL (24.8-81.5)
[2023-02-25 14:50] LABS: ANTINUCLEAR ANTIBODIES DIRECT Negative (Negative)
== END | disposition home or self-care (01) ==
LOC: MFPLAB 15:05
PROVIDERS: PCP Family Medicine; Visit Provider Family Medicine
DX: R53.81 Other malaise (principal)
CPT/HCPCS: 36415; 82607; 82627; 82652; 82728; 84432; 84439; 84443; 84481; 85025; 86038; 86225; 86235; 86376; 86800; 82626

== ENCOUNTER 2023-02-23 11:49 | Emergency (ER) | payer OTHER, SELFPAY ==
[2023-02-23 11:50] VITALS: BP 131/104; PULSE 107; RESP 18; TEMP 35.9; O2SAT 98; BMI 19.3
--- NOTE | 2023-02-23 12:08 | EKG12_ITS ---
Test Reason : WEAKNESS Blood Pressure : / mmHG Vent. Rate : 083 BPM Atrial Rate : 083 BPM P-R Int : 098 ms QRS Dur : 090 ms QT Int : 360 ms P-R-T Axes : 009 076 055 degrees QTc Int : 423 ms Sinus rhythm with short NE Nonspecific ST and T wave abnormality Abnormal ECG Confirmed by ALISTAIR POWELL, TORREY ([id number]), makeup editor DAREN YODER ([id number]) on 02/28/2023 6:58:47 AM Referred By: Confirmed By:JOSE SAINZ MD
--- NOTE | 2023-02-23 12:09 | EX.ED.DYSGE1 ---
HPI History of Present Illness Chief Complaint: Weakness Detail of Chief Complaint: Generalized weakness and fatigue. Informant: patient Onset/Context/Timing Onset: Weeks Context: Gradual Onset Timing: Intermittent Current Severity: Mild Maximum Severity: Mild Narrative Narrative: 32-year-old female past medical history of a vertebral arterial dissection in 2016 that needed no intervention. States she is just felt generalized weakness and fatigue for about a month. Saw her primary care physician who did labs through their office that were unremarkable about a month ago. She has had some intermittent numbness and tingling in both her right arm and leg and left arm and leg. No unilateral weakness. She just feels generally drained. No weight loss. She has been eating and drinking well. States she has been getting plenty of sleep at night. Denies any nausea, vomiting or diarrhea. Denies any shortness of breath or chest pain. Denies any fever or chills. No dysuria. Denies any significant hair loss. Prior similar symptoms: Yes Recent Illness/Hospitalization: No PFSH PFSH Medical History Anxiety CVA (cerebral vascular accident) Missed with demise before 20 completed weeks of gestation Non-smoker Home Medications vits,calcium no.78-iron fumarate-folic acid 29 mg-1 mg tablet 1 tab PO DAILY prangnancy 02/03/20 [History Last Taken 02/03/20 12:00] collagen,hydrolysate 500 mg-biotin 800 mcg-ascorbic acid 50 mg capsule (Collagen 1500 Plus C) cap PO 02/23/23 [History Last Taken Unknown] Allergy/AdvReac Type Severity Reaction Status Date / Time No Known Allergies Allergy Verified 02/23/23 11:52 Surgical History History of cranial surgery S/P LASIK surgery Social History Smoking Status: Never smoker alcohol intake: never ROS ROS ED ROS Narrative General fatigue. Review of Systems ROS Unobtainable: Denies due to encephalopathy Constitutional Constitutional ED: Denies chills or fever(s) Eyes Eyes: Denies blurry vision ENT ENT ED: Denies ear pain Cardiovascular Cardiovascular: Denies chest pain or palpitations Respiratory/Chest Respiratory/Chest: Denies cough or dyspnea Gastrointestinal Gastrointestinal: Denies abdominal pain, constipation, diarrhea or melena Genitourinary Genitourinary ED: Denies dysuria or hematuria Musculoskeletal Musculoskeletal: Denies arthralgias Integumentary Denies abscess Neurologic Neurologic: Denies headache(s) Psychiatric Psychiatric: Denies anxiety or depression Endocrine Endocrinology: Denies cold intolerance Hematologic/Lymphatic Hematologic/Lymphatic: Reports none; Denies anemia Allergic/Immunologic Allergic/Immunologic ED: Denies mouth swelling or tongue swelling EXAM Physical Exam Narrative Exam Narrative: Well-appearing 32-year-old female. Vital signs stable afebrile. H EENT exam unremarkable. Pupils round reactive light. Moist weeks membranes. Neck nontender no lymphadenopathy. Lungs clear to auscultation bilaterally. Heart regular rhythm rate about 105 no murmur. Chest wall nontender. Abdomen soft nontender. Moving all 4 extremities. Calves are nontender without edema or cords. Neurologically is awake alert with no focal motor deficits. 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 Normal dorsi plantarflexion. Skin unremarkable. Back nontender. Const Vital Signs: 02/23/23 11:50 02/23/23 12:22 Temperature 96.6 F L Temperature Source Temporal Pulse Rate 107 H Respiratory Rate 18 Respiratory Pattern Normal Blood Pressure 131/104 H Blood Pressure Mean 113 Pulse Ox 98 Oxygen Delivery Method Room Air Positive well nourished and well developed; Negative for obese, cachectic, contractures or unkempt General Appearance ED: well developed and NAD; Negative for unkempt, cachectic, contractures, cyanotic, diaphoretic or pallor Nutritional Appearance: Negative for cachectic or obese HEENT Reports moist mucous membranes; Denies dry mucous membranes Negative for trauma or tenderness Mouth ED: No dry mucous membranes Mouth: No dry mucous membranes Eyes PERRL and EOMs intact bilaterally General Eye ED: Negative for pale conjunctiva, scleral icterus or other Neck no lymphadenopathy, supple and no JVD General: Negative for tenderness Lymph Lymphatic: Negative for other Chest Wall inspection of chest normal and palpation of chest normal Chest: Negative for other Resp normal respiratory effort and clear to auscultation bilaterally Effort and Inspection: Negative for retractions Auscultation: Negative for rales, rhonchi or wheezes Cardio regular rhythm, S1 normal heart sound, S2 normal heart sound and no murmurs; Negative for regular rate Rate: tachycardic Rhythm: Negative for abnormal rhythm GI normal to inspection, nondistended, normoactive bowel sounds, non-tender, non-distended and no masses Inspection: Negative for abdominal distention Auscultation: normoactive bowel sounds Palpation: soft; Negative for tender or guarding Back/Spine no CVA tenderness General Back: Negative for CVA tenderness Cervical Spine: Negative for cervical spine tenderness Thoracic Spine / Upper Back: Negative for thoracic spinal tenderness or paraspinal muscle tenderness Lumbar Spine / Lower Back: Negative for lumbar spinal tenderness Extremity normal to inspection General Extremety ED: Negative for edema or tenderness General Extremity: Negative for edema Neuro oriented x3, CN's II-XII intact bilaterally and no sensory deficits noted Sensorium / Orientation: alert; Negative for orientation impaired, lethargic or stuporous Motor Exam: strength 5/5 throughout Psych mental status grossly normal Appearance: Negative for unkempt Attitude: No agitated Mood & Affect: Negative for depressed, anxious or tearful Skin no rashes or lesions noted, no wounds and skin turgor normal General Skin Exam: elasticity normal; Negative for jaundice or pallor Lesions: No lesion noted Rashes: No rashes noted Trauma: Negative for abrasion MDM MDM MDM Narrative Medical decision making narrative: 32-year-old with generalized weakness and fatigue. Benign exam. Clinically looks well. Screening labs are being obtained. I do not think she needs any imaging at this time. She has a normal neurologic exam. Repeat exam at 1:40 PM patient doing well. I went over all of her test results with her and her . She understands that the TSH is a slightly abnormal. There is other tests that are pending through her primary care physician's office. She has a follow-up with her primary care physician Dr. Zuleima Carnes for further evaluation of her thyroid and decide if they want to start her on medication or do other testing. They also autoimmune test pending. History & Record Review Discussion w/independent historian: Patient and Family Lab Data Attestation: I reviewed the patient's lab results. Lab results narrative: CBC normal. White count of 4.7. H&H 13.7 and 39. Chemistries show potassium slightly low at 3.3. Gap of 9. BUN and creatinine of 17 and 0.7. Liver enzymes normal. Serum test negative. TSH is slightly elevated 3.84 with normal being up to 3.74. This will need further evaluation. Labs: Laboratory Results - last 24 hr 02/23/23 02/23/23 02/23/23 12:15 12:15 12:15 WBC 4.7 RBC 4.62 Hgb 13.7 Hct 39.4 MCV 85.3 MCH 29.7 MCHC 34.8 RDW Std Deviation 36.8 RDW Coeff of Nestor 11.9 Plt Count 281 MPV 9.8 Immature Gran % (Auto) 0.200 Neut % (Auto) 66.3 Lymph % (Auto) 24.6 Miner % (Auto) 8.1 Eos % (Auto) 0.4 Baso % (Auto) 0.4 Absolute Neuts (auto) 3.1 Absolute Lymphs (auto) 1.16 Nucleated RBC % 0 Sodium 138 Potassium 3.3 L Chloride 105 Carbon Dioxide 24.0 Anion Gap 9 BUN 17 Creatinine 0.71 Estim Creat Clear Calc 87.14 Est GFR (MDRD) Af Amer 121 Est GFR (MDRD) Non-Af 100 BUN/Creatinine Ratio 24.0 H Glucose 106 Calcium 9.2 Total Bilirubin 0.30 AST 16 ALT 20 Alkaline Phosphatase 56 Total Protein 7.6 Albumin 4.2 Globulin 3.4 Albumin/Globulin Ratio 1.2 TSH 3.84 H Serum , Qual NEGATIVE Rhythm Strip Rhythm Strip: Sinus Rhythm Rate: 83 Ectopy: None EKG Initial EKG: Attestation: I personally reviewed and interpreted this EKG as follows: Interpretation: Sinus Rhythm and No Acute Injury Pattern Comments: Normal sinus rhythm rate 83 no acute signs of [place] or ischemia. Discharge Plan Triage Chief Complaint: Weakness ED Provider: Joni Hirsch Dx/Rx/DC Orders Clinical Impression: Fatigue Instructions: ED Weakness (Uncertain Cause) Prescriptions: No Action [id number] 1 TABLET tablet 1 tab PO DAILY Collagen 1500 Plus C 500 mg-800 mcg- 50 mg Capsule PO Primary Care Provider: Zuleima Carnes Referrals: Zuleima Carnes MD [Primary Care Provider] - As soon as possible Activity Restrictions/Additional Instructions: Follow-up with Dr. Carnes to get your other test results. Your TSH or thyroid-stimulating hormone level was slightly abnormal at negative. The result is 3.84 and upper limits of normal here is 3.74 and this is barely abnormal. Follow-up with primary care physician for any other results and they can decide if they need to start you on thyroid medication or not. Disposition Disposition: Home, Self Care
[2023-02-23 12:29] LABS: Absolute Lymphocyte Count 1.16 X10^3/uL (0.83-4.51); Absolute Neutrophil Count 3.1 X10^3/uL (2.0-7.7); Basophil# 0.02 X10^3/uL; Basophil% 0.4 % (0-1); Eosinophil# 0.02 X10^3/uL; Eosinophils% 0.4 % (0-5); Hematocrit 39.4 % (37-47); Hemoglobin 13.7 g/dL (12.0-15.0); Lymphocyte # 1.16 X10^3/ul (0.83-4.51); Lymphocyte % 24.6 % (19-41); Mean Corp Hgb Conc 34.8 g/dL (32-36); Mean Corpuscular Hgb 29.7 pg (27.0-32.0); Mean Corpuscular Volume 85.3 fL (81-99); Mean Platelet Vol. 9.8 fl (6.2-12.0); Monocyte# 0.38 X10^3/uL; Monocyte% 8.1 % (0-10); NRBC Flagged by Analyzer 0 % (0-5); Neutrophil # 3.12 X10^3/uL (2.7-7.7); Neutrophil % 66.3 % (47-70); Platelet Count 281 K/mm3 (150-450); RBC Distribution Width CV 11.9 % (11.6-14.6); RBC Distribution Width SD 36.8 fl (35.1-43.9); Red Blood Count 4.62 M/mm3 (4.2-5.4); White Blood Count 4.7 K/mm3 (4.4-11.0)
[2023-02-23 12:51] LABS: Internal QC Validated? YES +Cl - CLEAR BKGD; Pregnancy, Serum, hCG Quali. NEGATIVE Negative
[2023-02-23 12:59] LABS: ALB/GLOB Ratio 1.2 RATIO (0.9-2.4); AST(SGOT) 16 U/L (15-37); Alanine Aminotransfer ALT/SGPT 20 U/L (13-56); Albumin, Serum 4.2 g/dL (3.2-5.0); Alkaline Phosphatase 56 U/L (45-117); Anion Gap 9 (5-15); BUN 17 mg/dL (7-18); Calcium,Total 9.2 mg/dL (8.5-10.1); Chloride 105 mmol/L (98-107); Creatinine, Serum 0.71 mg/dL (0.55-1.02); EST Glomerular Filtration Rate 100 mL/min (>60); Est Glom Filt Rate - Afr Amer 121 mL/min (>60); Estimated Creatinine Clearance 87.14 ml/min; Globulin 3.4 g/dL (2.2-4.2); Glucose 106 mg/dL (74-106); Potassium 3.3 mmol/L (3.5-5.1); Protein, Total 7.6 g/dL (6.4-8.2); Sodium Level 138 mmol/L (136-145); Thyroid Stim Hormone (TSH) 3.84 uIU/mL (0.358-3.74)
[2023-02-23 13:58] VITALS: BP 107/70; PULSE 82; RESP 18; O2SAT 100
== END 2023-02-23 13:59 | disposition home or self-care (01) ==
PROVIDERS: Emergency Provider Emergency Medicine; PCP Family Medicine; Visit Provider Emergency Medicine
DX: R53.83 Other fatigue (principal); R94.6 Abnormal results of thyroid function studies; Z86.73 Personal history of transient ischemic attack (TIA), and cerebral infarction without residual deficits
CPT/HCPCS: 80053; 84443; 84703; 85025; 93005; 99283; A4216

== ENCOUNTER → 2023-02-24 | Outpatient (CLI) | payer OTHER, SELFPAY | END | disposition home or self-care (01) | LOC: MTLAB 07:54 | PROVIDERS: PCP Family Medicine; Referring Provider Family Medicine; Visit Provider Family Medicine | DX: R53.81 Other malaise (principal) | CPT/HCPCS: 36415; 82533 ==

== ENCOUNTER → 2023-03-09 | Outpatient (CLI) | payer OTHER, SELFPAY ==
--- NOTE | 2023-03-09 06:52 | MRI_ITS ---
STUDY: MRI BRAIN WITH AND WITHOUT CONTRAST REASON FOR EXAM: Female, 32 years old. Intermittent weakness, fatigue, myalgia x couple months. R/O MS TECHNIQUE: Standardized multiplanar fat and water weighted pulse sequences were obtained. IV 10cc clariscan was administered for the contrast portion of the examination. COMPARISON: CT of the brain September 08, 2016 FINDINGS: Normal size of the ventricles and extra-axial spaces for the patient''s age. Normal white matter tracts of the supratentorial brain. Normal bilateral basal ganglia. Normal thalami. There is no extra-axial fluid accumulation. Normal flow voids within the major intracranial circulation suggesting patency by spin echo criteria. Normal venous enhancement. There is no enhancing intra-axial or extra-axial abnormality. Normal sella turcica, pituitary gland, infundibular stalk, optic chiasm and hypothalamus. Normal tectal plate and pineal gland. Normal midbrain, ezequiel and medulla. There is a small rounded low signal intensity lesion in the right cerebellar hemisphere on T1 which becomes increased signal on T2 measuring 8.6 x 7.8 mm without associated edema, mass effect or enhancement of indeterminate etiology likely representing benign prominent perivascular space.. Normal basal cisterns. Normal bilateral temporal bones. Normal bilateral internal auditory canals. No demonstrated orbital abnormality, within the constraints of a routine brain study. Normal visualized paranasal sinuses. Normal calvarium and skull base. Normal visualized soft tissue structures. Normal visualized upper cervical spine. MRI/Brain W/WO Contrast IMPRESSION: Density in the right cerebellar hemisphere most likely representing prominent perivascular space. No evidence for acute infarct or other focal lesion within the brain with or without contrast. Electronically Signed: Eligio Keyes MD at 19:08 EDT ,
== END | disposition home or self-care (01) ==
PROVIDERS: PCP Family Medicine; Referring Provider Family Medicine; Visit Provider Family Medicine
DX: M62.81 Muscle weakness (generalized) (principal); R53.81 Other malaise
CPT/HCPCS: 70553; A9575

== ENCOUNTER → 2023-05-09 | Outpatient (CLI) | payer OTHER, SELFPAY ==
[2023-05-09 18:57] LABS: Anion Gap 5 (5-15); BUN 16 mg/dL (7-18); BUN/Creat Ratio 23.6 RATIO (10-20); CRP < 2.90 mg/L (0.0-3.0); Calcium,Total 8.9 mg/dL (8.5-10.1); Chloride 106 mmol/L (98-107); Creatinine, Serum 0.68 mg/dL (0.55-1.02); EST Glomerular Filtration Rate 105 mL/min (>60); Est Glom Filt Rate - Afr Amer 127 mL/min (>60); Glucose 85 mg/dL (74-106); Magnesium 2.4 mg/dL (1.6-2.6); Phosphorus 3.4 mg/dL (2.5-4.9); Potassium 3.4 mmol/L (3.5-5.1); Rheumatoid Factor < 10.0 IU/mL (<15); Sodium Level 139 mmol/L (136-145); Thyroid Stim Hormone (TSH) 4.83 uIU/mL (0.358-3.74)
[2023-05-09 19:13] LABS: Erythrocyte Sedimentation Rate 1 mm/hr (0-30)
== END | disposition home or self-care (01) ==
LOC: MFPLAB 16:59
PROVIDERS: PCP Family Medicine; Visit Provider Family Medicine
DX: E87.6 Hypokalemia (principal); R53.81 Other malaise
CPT/HCPCS: 36415; 80048; 83735; 84100; 84443; 85652; 86140; 86431

== ENCOUNTER → 2023-05-12 | Outpatient (CLI) | payer OTHER, SELFPAY ==
[2023-05-12 13:08] LABS: Free T3 2.5 pg/mL (2.18-3.98); T4 Free Direct 0.91 ng/dL (0.76-1.46); Thyroid Stim Hormone (TSH) 3.35 uIU/mL (0.358-3.74)
[2023-05-14 17:07] LABS: Thyroid Stim Immunoglob <0.10 IU/L (0.00-0.55)
== END | disposition home or self-care (01) ==
LOC: MFPLAB 11:01
PROVIDERS: PCP Family Medicine; Visit Provider Family Medicine
DX: R79.89 Other specified abnormal findings of blood chemistry (principal)
CPT/HCPCS: 36415; 84439; 84443; 84445; 84481

== ENCOUNTER → 2023-05-28 | Outpatient (CLI) | payer OTHER, SELFPAY ==
[2023-05-28 11:09] LABS: Rheumatoid Factor < 10.0 IU/mL (<15)
[2023-05-30 16:09] LABS: Anti-Nuclear Antibody Test Negative (.); SJOGREN'S Anti-SS-A test < 0.2 AI (0.0-0.9); SJOGREN'S Anti-SS-B test < 0.2 AI (0.0-0.9)
== END | disposition home or self-care (01) ==
LOC: LAB 09:53
PROVIDERS: PCP Family Medicine; Referring Provider Otolaryngology Otolaryngology/Facial Plastic Surgery; Visit Provider Otolaryngology Otolaryngology/Facial Plastic Surgery
DX: M35.00 Sjogren syndrome, unspecified (principal)
CPT/HCPCS: 86038; 86235; 86431

== ENCOUNTER → 2023-07-21 | Outpatient (CLI) | payer OTHER, SELFPAY | END | disposition home or self-care (01) | LOC: MFPLAB 16:26 | PROVIDERS: PCP Family Medicine; Visit Provider Family Medicine | DX: Z34.90 Encounter for supervision of normal pregnancy, unspecified, unspecified trimester (principal) | CPT/HCPCS: 36415; 84702 ==

== ENCOUNTER → 2025-01-03 | Outpatient (CLI) | payer OTHER, SELFPAY ==
[2025-01-03 13:12] LABS: Estradiol 130.5 pg/mL; Free T3 3.6 pg/mL (2.18-3.98); T4 Free Direct 0.91 ng/dL (0.76-1.46)
[2025-01-05 10:09] LABS: PROGESTERONE 10.1 ng/mL (.)
== END | disposition home or self-care (01) ==
LOC: LAB 10:19
PROVIDERS: PCP Family Medicine; Referring Provider Nurse Practitioner Women's Health; Visit Provider Nurse Practitioner Women's Health
DX: N92.4 Excessive bleeding in the premenopausal period (principal); E03.8 Other specified hypothyroidism
CPT/HCPCS: 36415; 82670; 84144; 84439; 84443; 84481

== ENCOUNTER → 2025-03-11 | Outpatient (CLI) | payer OTHER, SELFPAY | END | disposition home or self-care (01) | LOC: LAB 12:20 | PROVIDERS: PCP Family Medicine; Referring Provider Otolaryngology Otolaryngology/Facial Plastic Surgery; Visit Provider Otolaryngology Otolaryngology/Facial Plastic Surgery | DX: M35.00 Sjogren syndrome, unspecified (principal) | CPT/HCPCS: 36415 ==

== ENCOUNTER → 2025-06-10 | Outpatient (CLI) | payer OTHER, SELFPAY | END | disposition home or self-care (01) | LOC: BWCLAB 13:29 | PROVIDERS: PCP Internal Medicine; Visit Provider Internal Medicine Endocrinology, Diabetes & Metabolism | DX: E03.9 Hypothyroidism, unspecified (principal) | CPT/HCPCS: 36415; 84439; 84443 ==

== ENCOUNTER → 2025-07-08 | Outpatient (CLI) | payer OTHER, SELFPAY ==
[2025-07-08 13:05] LABS: Vitamin B12 714 pg/mL (180-914)
== END | disposition home or self-care (01) ==
LOC: BWCLAB 08:14
PROVIDERS: PCP Internal Medicine; Referring Provider Internal Medicine Endocrinology, Diabetes & Metabolism; Visit Provider Internal Medicine Endocrinology, Diabetes & Metabolism
DX: E03.9 Hypothyroidism, unspecified (principal); R20.2 Paresthesia of skin
CPT/HCPCS: 36415; 82607; 84439; 84443

== ENCOUNTER → 2025-08-01 | Outpatient (CLI) | payer OTHER, SELFPAY ==
--- OUTSIDE RECORDS SUMMARY | 2025-08-01 07:33 | XMS RPT_ITS | CCD ---
Author Organization [facility] Inform ion Partnership [facility] Care Team Providers Care Real Estate Office Manager Name Role Phone RAE ARMENDARIZ (VIDEO AND SOUND RECORDER) Unavailable Unavailable Snehal Salinas LPN Unavailable Unavailab Zuleima Brasher Primary Care Provider Zuleima Carnes Primary Care Provider [phone] Zuleima Carnes Primary Care Provider [phone] Zuleima Carnes Primary Care Provider SAWYER 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-CNM, GERRI Jacobo Attending Gina vailable DR ZULEIMA CARNES MD Primary Care Unavailable TREJO 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-CNM, GERRI Jacobo Primary Care Physic claribel TREJO 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-CNM, FRANCESELE L Primary Care Physic claribel SAWYER 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-CNM, FRANCESELE L Primary Care Gina vailable TREJO 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-CNM, FRANCESELE L Attending Gina vailable TREJO 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-CNM, RICHELE L Primary Care Gina vailable TREJO 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-CNM, RICHELE L Primary Care Gina vailable DR FRACISCO VERGARA DO Attending Unavailable TREJO 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-CNM, GERRI L Admitting Gina vailable TREJO 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-CNM, RICHELE L Primary Care Gina vailable TREJO 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-CNM, RFANCESELE L Attending Gina vailable TREJO 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-CNM, RICHELE L Primary Care Gina vailable MARIAH 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-CNM, ROBINSON Jacobo Attending Unavai lable TREJO 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-CNM, FRANCESELE L Primary Care Gina vailable TREJO 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-CNM, GERRI Jacobo Attending Gina vailable TREJO 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-CNM, RICHELE L Primary Care Gina vailable TREJO 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-CNM, RICHELE L Attending Gina vailable EunkathleeniffZuleima Primary Care Provider SELF Referring Unavailable JOLLIFF, ZULEIMA VANESA Primary Care Unavailable JOLLIFF, ZULEIMA VANESA Primary Care Unavailable JOLLIFF, ZULEIMA VANESA Primary Care Unavailable Trice POWELL, Dr. Zuleima Drake Primary Care Provider TREJO VIDEO AND SOUND RECORDER-C, FRANCESELE Attending Provider TREJO VIDEO AND SOUND RECORDER-C, RICHELE Referring Provider Douglas POWELL, Dr. Delmer Brooks Attending Provider Douglas POWELL, Dr. Delmer Brooks Referring Provider TREJO 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-CNM, RICHELE L Attending Gina vailable TREJO 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-CNM, RICHELE L Primary Care Gina vailable TREJO 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-CNM, RICHELE L Primary Care Gina vailable ALMA GALLARDO Attending Unavailable Trice POWELL, Dr. Zuleima Drake Primary Care Provider Trice POWELL, Dr. Zuleima Drake Referring Provider Fadi Fong Attending Provider [phone] Andre POWELL, Dr. Bonilla Primary Care Provider Dr. Donis Dean MD Attending Provider Dr. Zuleima Carnes MD Primary Care Provider Dr. Donis Dean MD Referring Provider Dr. Zuleima Carnes MD Referring Provider Dr. Irene Powell MD Attending Provider GERRI TREJO Attending Unavailable TREJO, RICHELE Referring Unavailable Jolliff, Zuleima S Primary Care Unavailable Jolliff, Zuleima S Primary Care Unavailable Delmer Cole Attending Unavailable Delmer Cole Referring Unavailable Irene Powell Primary Care Unavailable Donis Dean Attending Unavailable Irene Powell Primary Care Unavailable Donis Dean Attending Unavailable Donis Dean Referring Unavailable Jolliff, Zuleima S Referring Unavailable Andre, Irene Primary Care Unavailable Donis Dean Attending Unavailable Zuleima Carnes Referring Unavailable Irene Powell Primary Care Unavailable Irene Powell Attending Unavailable Zuleima Carnes Primary Care Unavailable Zuleima Carnes Referring Unavailable Fadi Fong Attending Unavailable Medications Current Medications Medication Drug Class(es) Dates Sig (Normalized) Sig (Original) amoxicillin 875 mg / clavulanate 125 mg oral tablet (1 source) Penicillin-class Antibacterial Start: 02-14-2024 End: 02-19-2024 take 1 tablet by mouth twice daily amoxicillin-clavul anate potassium (AUGMENTIN) 875-125 mg per tablet Take 1 tablet by mouth two times a day for 5 days. 10 tablet 0 02/14/2024 02/19/2024 Active Comment on above: Take 1 tablet by doc two times a day for 5 days. doxycycline monohydrate 100 mg oral capsule (1 source) Tetracycline-class Drug Start: 07-21-2022 End: 07-31-2022 take 1 capsule by mouth twice daily doxycycline monohydrate (MONODOX) 100 mg capsule Take 1 capsule by mouth twice daily for 10 days. 20 capsule 0 07/21/2022 07/31/2022 Active Comment on above: Take 1 capsule by mo [place] twice daily for 10 days. Doxylamine (19 sources) End: 07-21-2022 doxylamine succinate (UNISOM, DOXYLAMINE, ORAL) Take by mouth. 0 07/21/2022 Discontinued doxylamine succi gina (UNISOM, DOXYLAMINE, ORAL) Take by mouth. 0 Active Comment on above: Take by mouth. ibuprofen 600 mg oral tablet (2 sources) Nonsteroidal Anti-inflammatory Drug Start: 03-10-20 24 Motrin Dose : 600 mg = 1 tab(s), Oral, q6h, PRN uterine cramping, 0 Refill(s) Start Date: 03/10/24 Status: Ordered Repeat number: 1 L. Acidophilus/Bifid. Animalis (Daily Probiotic) 2.5 billion cell capsule (4 sources) Start: 05-07-20 take 2.5 capsules by mouth once daily L. Acidophilus/Bifid. Animalis (Daily Probiotic) 2.5 billion cell capsule Active NMA PO May 07, 2025 12:00am Multivitamin tablet (4 sources) Start: 05-07-20 Multivitamin tablet Active 1 {tbl} PO EVERY MORNING May 07, 2025 12:00am ondansetron 4 mg oral tablet (20 sources) Serotonin-3 Receptor Antagonist Start: 03-18-20 take 4 mg by mouth every six hours Ondansetron Hcl Active 4 MG PO EVERY 6 HOURS March 18, 2022 12:00am Start: 02-09-2022 End: 07-21-2022 take 1 tablet by mouth every eight hours as needed ondansetron (ZOFRAN) 8 mg tablet Take 1 tablet by mouth every 8 hours as needed for nausea/vomiting. 1/2 TO ONE PO 30 tablet 1 02/09/2022 07/21/2022 Discontinued Comment on above: Take 1 tablet by doc th every 8 hours as needed for nausea/vomiting. 1/2 TO ONE PO Multivitamins (3 sources) Start: take 1 tablet by mouth once daily Multivitamins Dose = 1 tab(s), Oral, qDay, 0 Refill(s) Start Date: 02/19/24 Status: Ordered Repeat number: 1 Start: 02-19-2024 take 1 tablet by doc th once daily Multivitamins Dose = 1 tab(s), Oral, qDay, 0 Refill(s) Start Date: 02/19/24 Status: Ordered Vit,Bzlq86-Lyuy-Nupth (19 sources) Start: 02-03-2020 take 1 tablet by mouth once daily Vit,Byeb49-Rxtr-Fdrqg Active 1 TABLET PO DAILY February 03, 2020 8:25pm Start: 02-03-2020 take 1 tablet by doc th once daily Vit,Lazn53-Twxc-Btiok Active 1 TABLET PO DAILY February 03, 2020 1:00am progesterone 100 mg oral capsule (3 sources) Progesterone Start: 06-18-2025 take 1 capsule by mouth once daily in the morning Progesterone Micronized 100 mg capsule Active 100 mg PO EVERY MORNING June 18, 2025 12:00am off 7 days; repeat cycle pyridoxine HCl, vitamin B6, (VITAMIN B-6 ORAL) (20 sources) End: 10-08-2022 pyridoxine HCl, vitamin B6, (VITAMIN B-6 ORAL) Take by mouth. 0 10/08/2022 Discontinued pyridoxine HCl, vitamin B6, (VITAMIN B-6 ORAL) Take by mouth. 0 Active Comment on above: Take by mouth. Completed/Discontinued Medications Medication Drug Class(es) Dates Sig (Normalized) Sig (Original) acetaminophen 325 mg / oxyCODONE hydrochloride 5 mg oral tablet (20 sources) Opioid Agonist Start: 02-16-2020 End: 02-19-2020 Oxycodone-Acetaminoph en 1 TABLET tablet Discontinued 1 {tbl} PO EVERY 8 HOURS NEEDED as needed for Pain 9 3 0 February 16, 2020 February 18, 2020 12:00am February 19, 2020 12:07am Other acute postprocedural pain Start: 02-16-2020 End: 02-19-2020 take 1 tablet by mouth every eight hours as needed Oxycodone-Acetaminophen Discontinued 1 TABLET PO EVERY 8 HOURS NEEDED 9 3 February 16, 2020 February 19, 2020 12:07am amoxicillin 500 mg oral capsule (14 sources) Penicillin-class Antibacterial Start: 03-19-2025 End: 05-07-2025 take 1 capsule by mouth three times daily Amoxicillin 500 mg capsule Discontinued 500 mg PO THREE TIMES A DAY 30 0 April 25, 2025 11:57am May 07, 2025 9:16am Start: 10-31-2024 End: 11-07-2024 take 1 tablet by mouth twice daily Amoxicillin 875 mg tablet Discontinued 875 mg PO TWICE A DAY 14 7 0 October 31, 2024 1:00am November 06, 2024 1:00am November 07, 2024 1:09am Start: 08-12-2017 End: 08-22-2017 AMOXICILLIN 500 MG TABS Take one tab every 12 hours AMOXICILLIN [id number] [place] aspirin 81 mg oral tablet (1 source) Platelet Aggregation Inhibitor, Nonsteroidal Anti-inflammatory Drug End: 09-20-2018 ASPIRIN ORAL Take 81 mg by mouth. 0 09/20/2018 Discontinued (Discontinued by Patient) Comment on above: Take 81 mg by mouth. Ewwpksjf-Tzcfsq-N scorbic Acid (Collagen 1500 Plus C) 500 mg-800 mcg- 50 mg Capsule (11 sources) Start: 02-23-2023 End: 03-19-2025 Umugunmv-Hqnieu-Iyrgqb ic Acid (Collagen 1500 Plus C) 500 mg-800 mcg- 50 mg Capsule Discontinued NMA PO February 23, 2023 12:00am March 19, 2025 8:14am Start: 02-23-2023 Collagen-Bioti n-Ascorbic Acid (Collagen 1500 Plus C) 500 mg- 800 mcg- 50 mg Capsule Active NMA PO February 23, 2023 12:00am Start: 02-23-2023 Collagen-Bioti n-Ascorbic Acid (Collagen 1500 Plus C) 500 mg- 800 mcg- 50 mg Capsule Active CAP PO February 23, 2023 12:00am copper 313 mg drug implant (15 sources) Copper-containing Intrauterine Device Start: 05-05-2022 End: 05-05-2022 copper intrauterine device 380 square mm (PARAGARD) Start: 05-05-2022 End: 05-02-2032 copper (PARAGARD) 380 square mm intrauterine device 1 Intra Uterine Device by INTRAUTERINE route as directed. 1 Intra Uterine Device 0 05/05/2022 05/02/2032 Active Start: 07-29-2017 End: 03-23-2019 copper (PARAGARD T 380A) 380 square mm intrauterine device Indications: Encounter for IUD insertion INSERTED IN THE OFFICE 1 Intra Uterine Device 0 07/29/2017 03/23/2019 Discontinued Comment on above: INSERTED IN THE OFFI CE 1 Intra Uterine Nathalia ce by INTRAUTERINE route as directed. Desog-E.Estradiol/E. Estradiol (20 sources) Progestin, Estrogen Start: 09-08-2016 End: 08-27-2018 Desog-E.Estradiol/E.Estra diol Discontinued 1 EACH PO DAILY September 08, 2016 9:04pm August 27, 2018 12:29pm Start: 09-08-2016 End: 08-27-2018 Desog-E.Estradiol/E.Estradio l 1 EACH tablet Discontinued 1 NMA PO DAILY September 08, 2016 12:00am August 27, 2018 12:29pm Start: 09-08-2016 End: 08-27-2018 Desog-E.Estradiol/E.Estradio l Discontinued 1 EACH PO DAILY September 08, 2016 12:00am August 27, 2018 12:29pm escitalopram 10 mg oral tablet (5 sources) Serotonin Reuptake Inhibitor Start: 04-18-2023 End: 11-24-2024 take 1 tablet by mouth once daily escitalopram oxalate (LEXAPRO) 10 mg tablet Take 10 mg by mouth once daily. 04/18/2023 11/24/2024 Discontinued Comment on above: Take 10 mg by mouth once daily. estradiol 1 mg / progesterone 100 mg oral capsule (4 sources) Progesterone, Estrogen Start: 03-19-2025 End: 06-18-2025 Estradiol-Progester one 1-100 mg capsule Discontinued 1 NMA PO EVERY EVENING March 19, 2025 12:00am June 18, 2025 8:58am liothyronine sodium 0.005 mg oral tablet (6 sources) l-Triiodothyroni ne Start: 03-19-2025 End: 07-23-2025 take 1 tablet by mouth once daily Liothyronine 5 mcg tablet Discontinued 5 ug PO daily March 19, 2025 12:00am July 23, 2025 9:04am Start: 10-17-2024 End: 11-24-2024 take 1 tablet by mouth once daily liothyronine (CYTOMEL) 5 mcg tablet Take 5 mcg by mouth once daily. 10/17/2024 11/24/2024 Discontinued MEDICATION, NON-DATABASE (9 sources) End: 11-24-2024 MEDICATION, NON-DATABASE Col lagen Powder 11/24/2024 Discontinued MEDICATION, NON- DATABASE Collagen Powder Active MEDICATION, NON- DATABASE Collagen Powder 0 Active Comment on above: Collagen Powder METHYLPREDNISOLONE (1 source) Corticosteroid Start: 08-12-20 End: 08-17-20 MEDROL 4 MG TBPK Take as directed on packet METHYLPREDNISOLONE [id number] [place] miSOPROStol 0.2 mg oral tablet (20 sources) Prostaglandin E1 Analog Start: 03-19-20 End: 03-19-20 Misoprostol 200 mcg tablet Discontinued 400 ug VAGINAL ONE TIME March 19, 2022 12:00am March 19, 2022 8:08am Start: 03-19-2022 End: 03-19-2022 Misoprostol Discontinued 400 MCG VAGINAL ONE TIME March 19, 2022 12:00am March 19, 2022 8:08am Start: 03-18-2022 End: 03-18-2022 miSOPROStol (CYTOTEC) 200 mc g tablet Use 2 tablets vaginally one time only for [address] 2 tablets vaginally the morning of the procedure 2 tablet 0 03/18/2022 03/18/2022 Comment on above: Use 2 tablets vagina lly one time only for [address] 2 tablets vaginally the morning of the procedure Cxzbkurl-Kc-Kpf-Fe -FA ( VITAMIN) tab (20 sources) Start: 06-07-2019 End: 11-24-2024 take 1 tablet by mouth once daily Xnnhtwbc-Wi-Wlg-Fe-FA ( VITAMIN) tab Take 1 tablet by mouth once daily. 06/07/2019 11/24/2024 Discontinued Start: 06-07-2019 take 1 tablet by doc th once daily Mjzvtist-Wl-Aax-Fe-FA ( VITAMIN) tab Take 1 tablet by mouth once daily. 06/07/2019 Active Start: 06-07-2019 take 1 tablet by doc th once daily Mezswupj-Tz-Zyj-Fe-FA ( VITAMIN) tab Take 1 tablet by mouth once daily. 0 06/07/2019 Active Comment on above: Take 1 tablet by doc th once daily. Vit,Hcgj78-Octj-Udk ic 1 TABLET tablet (5 sources) Start: 02-03-2020 End: 03-19-2025 take 1 tablet by mouth once daily Vit,Cuoa58-Gpxx-Ofecw 1 TABLET tablet Discontinued 1 {tbl} PO DAILY February 03, 2020 1:00am March 19, 2025 8:14am prangnancy Start: 02-03-2020 take 1 tablet by doc th once daily Vit,Ltsf03-Ntlb-Tkacu 1 TABLET tablet Active 1 {tbl} PO DAILY February 03, 2020 1:00am thyroid (assisted) 30 mg oral tablet (7 sources) Start: 02-19-2024 End: 07-23-2025 take 1 tablet by mouth once daily Thyroid (Pork) (Murray Thyroid) 30 mg tablet Discontinued 30 mg PO daily March 19, 2025 12:00am July 23, 2025 9:03am Problems Active Problems Problem Classification Problem Date Documented Da te Episodic/Chronic Abdominal pain (4 sources) Epigastric pain; Translations: [Epigastric pain] Onset: Episodic Administrative/social admission (1 source) First encounter by subject; Translations: [Persons encountering health services in other specified circumstances] 07-23-2025 Episodic Aortic; peripheral; and visceral artery aneurysms (20 sources) Aneurysm of artery of neck; 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] Onset: 6 03-08-2017 Chronic Benign neoplasm of uterus (20 sources) Intramural leiomyoma of uterus; Translations: [Intramural leiomyoma of uterus] Onset: 9 12-25-2019 Episodic Contraceptive and procreative management (8 sources) Patient encounter status; Translations: [Encounter for insertion of intrauterine contraceptive device] Episodic Influenza (1 source) Influenza-like illness; Translations: [Influenza due to unidentified influenza virus with other respiratory manifestations] 11-24-2024 Episodic Liveborn (1 source) Born by normal vaginal delivery; Translations: [Single liveborn , delivered vaginally] Onset: 4 Episodic Malaise and fatigue (13 sources) Fatigue; Translations: [Other fatigue] Onset: 5 02-23-2023 Episodic Menopausal disorders (1 source) Excessive bleeding in the premenopausal period; Translations: [Excessive bleeding in the premenopausal period] Onset: 5 Chronic Other complications of (2 sources) Missed miscarriage; Translations: [Missed ] Episodic Other complications of (1 source) Missed ; Translations: [Missed ] Episodic Other congenital anomalies (20 sources) Craniosynostosis syndrome; 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] Onset: 9 07-12-2019 Chronic Other congenital anomalies (3 sources) Congenital anomaly of head; 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] Onset: 9 07-12-2019 Chronic Other female genital disorders (1 source) Abnormal uterine bleeding; Translations: [Abnormal uterine and vaginal bleeding, unspecified] Chronic Other gastrointestinal disorders (1 source) Abdominal distension (gaseous); Translations: [Abdominal distension (gaseous)] Onset: 8 Episodic Other nervous system disorders (7 sources) Paresthesia; Translations: [Paresthesia of skin] 06-18-2025 Episodic Comment on above: feet Other nervous system disorders (1 source) Paresthesia of skin; Translations: [Paresthesia of skin] Onset: 5 Episodic Other and delivery including normal (20 sources) Normal ; Translations: [Encounter for supervision of other normal , first trimester] Onset: 9 Resolved: 2 01-15-2022 Episodic Other screening for suspected conditions (not mental disorders or infectious disease) (1 source) Encounter for screening for cardiovascular disorders; Translations: [Encounter for screening for cardiovascular disorders] Onset: 5 Episodic Other skin disorders (1 source) Cystic acne; Translations: [Acne vulgaris] Episodic Other upper respiratory infections (5 sources) Bacterial sinusitis; Translations: [Chronic sinusitis, unspecified] Onset: 5 02-14-2024 Chronic Other upper respiratory infections (2 sources) Upper respiratory infection; Translations: [Sore throat symptom] Onset: 7 08-12-2017 Episodic Postabortion complications (2 sources) Partial hydatidiform mole; Translations: [Other complications following an ectopic and molar ] Episodic Prolonged (20 sources) Post-term of 40 to 42 weeks; Translations: [Post-term ] 02-03-2020 Episodic Residual codes; unclassified (1 source) Gestation period, 17 weeks; Translations: [17 weeks gestation of ] Episodic Residual codes; unclassified (1 source) Gestation period, 40 weeks; Translations: [40 weeks gestation of ] Onset: 4 Episodic Systemic lupus erythematosus and connective tissue disorders (1 source) Sicca syndrome, unspecified; Translations: [Sjogren syndrome, unspecified] Onset: 5 Chronic Thyroid disorders (9 sources) Acquired hypothyroidism; Translations: [Hypothyroidism, unspecified] Onset: 5 06-10-2025 Chronic Past or Other Problems Problem Classification Problem Date Documented Date Episodic/Chronic Acute bronchitis (1 source) Acute bronchitis; Translations: [Acute bronchitis, unspecified] Onset: 08-12-2017 08-12-2017 Episodic Acute cerebrovascular disease (2 sources) Cerebrovascular accident due to thrombus of right vertebral artery; Translations: [Cerebral infarction due to thrombosis of right vertebral artery] Onset: 03-08-2017 Resolved: 06-20-2019 06-20-2019 Chronic Menstrual disorders (2 sources) Irregular periods; Translations: [Irregular menstruation, unspecified] Onset: 07-02-2014 Resolved: 06-15-2019 06-15-2019 Chronic Other complications of (20 sources) Nausea and vomiting; Translations: [Vomiting of , unspecified] Onset: 01-15-2022 01-15-2022 Episodic Other complications of (2 sources) Rubella non-immune; Translations: [Supervision of other high risk pregnancies, unspecified trimester] Onset: 06-27-2019 Resolved: 04-29-2020 04-29-2020 Episodic Other complications of (2 sources) Vomiting of , unspecified; Translations: [Unspecified vomiting of , unspecified as to episode of care or not applicable] Onset: 01-15-2022 Resolved: 07-21-2022 07-21-2022 Episodic Other skin disorders (2 sources) Acne; Translations: [Acne, unspecified] Onset: 07-02-2014 Resolved: 06-15-2019 06-15-2019 Episodic Residual codes; unclassified (20 sources) FH: Congenital anomaly; Translations: [Family history of other congenital malformations, deformations and chromosomal abnormalities] Onset: 01-14-2022 Resolved: 07-21-2022 01-14-2022 Episodic Screening and history of mental health and substance abuse codes (20 sources) H/O: anxiety state; Translations: [Personal history of other mental and behavioral disorders] Onset: 01-14-2022 01-14-2022 Episodic Results Test Name Value Interpretation Reference Range Facility Internal Medicine Office Vis sindy 07-22-2025 Internal Medicine Office Visit [facility] [address] [place] [address] OFFICE VISIT Date of Service: 07/23/25 MR#: [id number] Acct: [id number] Name: PIPPA MEANS Rep #: [id number] : 1990 Provider: Dr. Irene covington MD Age/Sex: 35/F Location: [facility] Status: Signed Intake Vital Signs 03/29/24 14:56 06/18/25 08:56 07/23/25 09:01 Height 5 ft 3 in 5 ft 3 in 5 ft 2 in Weight: 109 lb BMI 19.9 BP 110/60 Blood Pressure Location Lt brachial Position Sitting Respiration 18 Pulse 81 Pulse Source Monitor Temp 97.2 F L Temp Source Temporal Pulse Oximetry (%) 99 Oxygen Delivery Method room air Intake Visit Reasons: EST NEW PT - [facility] SENT Chief Complaint: EST NEW PT- [facility] SENT Is patient in pain?: No Allergies No Known Allergies Allergy (Verified 07/23/25 09:02) Medications ???Medication ???Instructions ???Recorded ???Confirmed ???Type Lactobacillus cap PO 05/07/25 07/23/25 History acidophilus-Bifidoba c.animalis 2.5 billion cell capsule (Daily Probiotic) multivitamin 1 tab PO QAM 05/07/25 07/23/25 His tory progesterone micronized 100 mg 100 mg PO QAM 06/18/25 07/23/25 Hi story capsule PFSH Medical History (Updated 07/23/25 @ 09:[address] Irene Powell MD) Craniosynostosis (86) Melanoma Paresthesia Hypothyroidism (acquired) Missed with demise before 20 completed weeks of gestation Anxiety Non-smoker CVA (cerebral vascular accident) Surgical History (Updated 07/23/25 @ 09:[address] Irene Powell MD) [place] teeth extracted H/O dilation and curettage (03/19/22) History of cranial surgery S/P LASIK surgery Family History (Updated 07/23/25 @ 09:[address] Irnee Powell MD) Mother Breast cancer 40s Cancer lymphoma Osteoporosis Thyroid disorder Father Myocardial infarction High cholesterol Benign brain tumor Grandmother Colon cancer Grandfather Parkinson disease Aunt Leukemia Grandmother Non-Hodgkin lymphoma Uncle Myocardial infarction Social History (Updated 07/23/25 @ 09:[address] 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 current occupational exposures/hazards: No pets and animals: Yes history of recent travel: No sexually active: Yes Smoking Status: Never smoker second hand exposure: No alcohol intake: current alcohol intake frequency: holidays/special occasions only details: holidays substance use type: does not use well-balanced diet: daily or most days eating out: rarely or never during the past year weight has: remained stable what type of physical activity do you participate in: walking and weight training frequency: 3-4 times per week duration: 15-30 minutes/day frankie/jew: [employer] seatbelt use: always do you feel safe at home: Yes Questionnaire H-9 BMS Over the last 2 weeks, how often have you been bothered by any of the following problems? 1. Little interest or pleasure in doing things: not at all 2. Feeling down, depressed, or hopeless: not at all 3. Trouble falling or staying asleep, or sleeping too much: not at all 4. Feeling tired or having little energy: more than half the days 5. Poor appetite or overeating: several days 6. Feeling bad about yourself - or that you are a failure or have let yourself and your family down: not at all 7. Trouble concentrating on things, such as reading the newspaper or watching television: not at all 8. Moving or speaking so slowly that other people could have noticed? - Or the opposite - being so fidgety or restless that you have been moving around a lot more than usual: not at all 9. Thoughts that you would be better off or of hurting yourself in some way: not at all Total score: 3 If you checked off any problems, how difficult have these problems made it for you to do your work, take care of things at home, or get along with other people?: not difficult at all Source: Developed by Drs. Heriberto Onofre, Delores Marsh, Memo Guillen and colleagues, with an educational willian from [employer]. GIOVANI-7 BMS GIOVANI-7 Feeling nervous, anxious, or on edge: 1 = Several days Not being able to stop or control worryin = More than half the days Worrying too much about different things: 2 = More than half the days Trouble relaxin = Several days Being so restless that it is hard to sit still: 0 = Not at all Becoming easily annoyed or irritable: 2 = More than half the days Feeling afraid as if something awful might happen: 1 = Several days Total GIOVANI-7 score (0-4 normal; 5-9 mild; 10-14 moderate; 15-21 severe): 9 Source: Developed by Drs. Heriberto Onofre, Memo Arredondo and colleagues, with an e (more content not included)... Normal [facility] T4 Free Directon 07-08-2025 T4 FREE DIRECT 1.20 ng/dL Normal 0.76-1.46 [facility] Comment on above: Performed By: #### L 503.0106, L506.0400, L501.9520 #### [facility] [address] [place], [address] T4 freeOrdered By: Donis Dean on 07-08-2025 Free T4 [Mass/Vol] 1.20 ng/dL 0.76-1.46 [facility] TSH DL <= 0.005 mIU/L QnOrde red By: Donis Dean on 07-08-2025 TSH Qn 2.960 uIU/mL 0.300-4.200 [facility] Thyroid Stim Hormone (TSH)on 07-08-2025 TSH 2.960 uIU/mL Normal 0.300-4.200 [facility] Comment on above: Performed By: #### L 503.0106, L506.0400, L501.9520 #### [facility] [address] [place], [address] Vitamin B12on 07-08-2025 Cobalamin (Vitamin B12) [Mass/Vol] 714 pg/mL Normal 180-914 [facility] Comment on above: Performed By: #### L 503.0106, L506.0400, L501.9520 #### [facility] [address] [place], [address] Vitamin B12 ser/plasOrdered By: Donis Dean on 07-08-2025 Cobalamin (Vitamin B12) [Mass/Vol] 714 pg/mL 180-914 [facility] Endocrinology Visit Reporton 06-18-2025 Endocrinology Visit Report [facility] [address] [place], [place] [address] OFFICE VISIT Date of Service: 06/18/25 MR#: [id number] Acct: [id number] Name: CLARYPIPPA ABHISHEK Rep #: [id number] : 1990 Provider: Tyrone Marte Age/Sex: 35/F Location: [facility] Status: Signed Intake Vital Signs 03/29/24 14:56 06/18/25 08:56 Height 5 ft 3 in 5 ft 3 in Weight: 110 lb BMI 19.5 BP 110/57 L Blood Pressure Location Lt brachial Position Sitting Pulse 95 Pulse Source Monitor Pulse Oximetry (%) 99 Oxygen Delivery Method room air Intake Visit Reasons: Thyroid Chief Complaint: Thyroid Is patient in pain?: No Allergies No Known Allergies Allergy (Verified 06/18/25 08:58) Medications ???Medication ???Instructions ???Recorded ???Confirmed ???Type liothyronine 5 mcg tablet 5 mcg PO QDAY 03/19/25 05/07/25 Hi story thyroid (pork) 30 mg tablet 30 mg PO QDAY 03/19/25 05/07/25 Hi story (Murray Thyroid) Lactobacillus cap PO 05/07/25 05/07/25 History acidophilus-Bifidoba c.animalis 2.5 billion cell capsule (Daily Probiotic) multivitamin 1 tab PO QAM 05/07/25 05/07/25 His tory progesterone micronized 100 mg 100 mg PO QAM 06/18/25 06/18/25 Hi story capsule PFSH Medical History (Updated 06/18/25 @ 10:[address] Donis Dean MD) Paresthesia Hypothyroidism (acquired) Missed with demise before 20 completed weeks of gestation Anxiety Non-smoker CVA (cerebral vascular accident) Surgical History History of cranial surgery S/P LASIK surgery Family History Mother Breast cancer Cancer Osteoporosis Thyroid disorder Father Myocardial infarction High cholesterol Grandmother Colon cancer Grandfather Parkinson disease Social History Smoking Status: Never smoker alcohol intake: never HPI HPI Chief Complaint: Thyroid Details: PIPPA MEANS, is a 35 F who presents to the office today for evaluation and management of thyroid disease. Her mother has hypothyroidism. She presented in 2021 following a miscarriage. She was unable to conceive for 2 years. (First child born February 04, 2020) TSH was noted to be 4.9 Thyroid antibodies were negative. She was feeling fatigue, brain fog. Murray thyroid was started by [employer] She conceived within 3 months. TSH levels have been good since that time, with the highest reading in April, of 4.83. She isn't feeling her best. She is currently taking Murray 30 mg and liothyronine 5 mcg. She stopped T3 one week ago due to feeling dizzy. She has fatigue and brain fog. She is having cycles. No desire for future . ROS Const Constitutional: Positive for fatigue; No weight change or change in appetite Eyes Eyes: No change in vision ENT ENT: Positive for dizziness/vertigo; No difficulty swallowing Cardio Cardiology: No chest pain at rest, chest pain with exertion, shortness of breath or palpitations Musc Musculoskeletal: Positive for tingling (feet); No abnormal gait, joint pain or numbness Neuro Neurology: Positive for tingling (feet); No abnormal gait, memory loss or numbness Psych Psychiatric: No change in appetite, No memory loss, No Thoughts of harming yourself/Others and Positive for other (brain fog) Resp Respiratory: No cough, chest congestion or shortness of breath Gastro GI: No abdominal pain, constipation, diarrhea or difficulty swallowing Genitourinary-Female : No burning urination Skin Skin: No itchy eyes or wounds Endo Endocrine: Positive for fatigue; No weight change Aller/Imm Allergy/Immunologic: No itchy eyes Exam Const General: cooperative, healthy appearing, comfortable, no acute distress, well developed and not cushingoid Nutritional Appearance: thin Orientation: alert, awake and oriented x3 HENMT Head: normal to inspection Ears: hearing grossly normal bilaterally Nose: external nose normal Mouth: oral mucosae normal Eyes General: appearance normal, both eyes and all related structures Alignment and Position: alignment normal Periorbital: periorbital findings normal Eyelids: eyelids normal Conjunctivae: conjunctivae normal Neck Neck: normal visual inspection Neck mass: No Thyroid: thyroid normal Lymphatic: no lymphadenopathy noted Chest Chest palpation inspection: normal inspection of the chest Resp Effort Inspection: normal respiratory effort, able to speak in complete sentences, symmetric chest movement, no audible wheezes and no cough Auscultation: Bilateral: Clear to Auscultation Cardio Rate: regular rate Rhythm: regular rhythm Skin General: no (more content not included)... Normal [facility] T4 Free Directon 06-10-2025 T4 FREE DIRECT 0.90 ng/dL Normal 0.76-1.46 [facility] Comment on above: Performed By: #### L 501.9520, L506.0400 ####[facility] [address] [place], [address] T4 freeOrdered By: Donis Dean on 06-10-2025 Free T4 [Mass/Vol] 0.90 ng/dL 0.76-1.46 [facility] TSH DL <= 0.005 mIU/L QnOrde red By: Donis Dean on 06-10-2025 TSH Qn 1.150 uIU/mL 0.300-4.200 [facility] Thyroid Stim Hormone (TSH)on 06-10-2025 TSH 1.150 uIU/mL Normal 0.300-4.200 [facility] Comment on above: Performed By: #### L 501.9520, L506.0400 ####[facility] [address] [place], [address] MA MAMMOGRAM SCREENING BILAT ERAL W/TOMOon 05-03-2025 MA MAMMOGRAM SCREENING BILATERAL W/BEN ORIGINAL FROM: [place] [address] PROCEDURE FOR: PIPPA MEANS [address] [place] [address] Home: PID#: [id number] Exam#: [id number] : 1990 Age: 35 TO: GERRI TREJO [address] [address] EXAMINATION: SCREENING DIGITAL BILATERAL MAMMOGRAM WITH TOMOSYNTHESIS, 02/04/2025 3:32 pm TECHNIQUE: Screening mammography of the bilateral breasts was performed with tomosynthesis. 2D standard and 3D tomosynthesis combination imaging performed through both breasts in the MLO and CC projection. Computer aided detection was utilized in the interpretation of this exam. COMPARISON: None. HISTORY: Breast cancer screening. FINDINGS: BREAST DENSITY: The breasts are heterogeneously dense, which may obscure small masses. There are benign appearing calcifications in both breasts. There are no significant masses or calcifications. IMPRESSION: No mammographic evidence of malignancy. Continued screening with annual mammograms is recommended. Cat Christie risk calculations, generated with the history provided, report this patient's 10 year risk and lifetime risk for developing breast cancer at 2.7% and 26.4%, respectively. Based on this assessment tool, if the patient's calculated lifetime risk is below 20%, then the patient is considered at average risk for developing breast cancer. If the patient's calculated lifetime risk is at or above 20%, then the patient is considered high risk for developing breast cancer and may be a candidate for supplemental breast MRI screening in addition to annual mammographic screening per the [employer]. BIRADS: BI-RADS: 2: Benign RECALL: 1 year screening RECALL TYPE: mammo LETTER SENT: Normal BI-RADS 1 and 2 Interpreted by: Thompson Ch MD Preliminary Report By: Thompson Ch MD Electronically signed By Thompson Ch MD Dictated Date: 05/03/2025 7:06:18 PM Prelim Date: 05/03/2025 7:07:42 PM Sign Date: 05/03/2025 7:07:42 PM Ordering Provider: ALMA GALLARDO 1[employer] Teacher: PATY ALONZO RT (R)(M) letter sent: Normal BI-RADS 1 and 2 Mammogram BI-RADS: 2 Benign Normal [facility] Urgent Care Visit Reporton 0 03-19-2025 Urgent Care Visit Report [facility] [address], [address] [place] [address] OFFICE VISIT Date of Service: 03/19/25 MR#: [id number] Acct: [id number] Name: PIPPA MEANS Rep #: [id number] : 1990 Provider: PHU Quintanilla Age/Sex: 34/F Location: [facility] Status: Signed Intake Vital Signs 03/29/24 14:56 03/19/25 08:17 Height 5 ft 3 in BP 104/60 Position Sitting Pulse 75 Temp 98.5 F Temp Source Oral Pulse Oximetry (%) 98 Oxygen Delivery Method room air Intake Visit Reasons: Sinus infection Accompanied by: Self Allergies No Known Allergies Allergy (Verified 02/23/23 11:52) Medications ???Medication ???Instructions ???Recorded ???Confirmed ???Type amoxicillin 500 mg capsule 500 mg PO TID #30 caps 03/19/25 R x estradiol 1 mg-progesterone 100 mg 1 cap PO QPM 03/19/25 03/19/25 H istory capsule liothyronine 5 mcg tablet 5 mcg PO QDAY 03/19/25 03/19/25 Hi story thyroid (pork) 30 mg tablet 30 mg PO QDAY 03/19/25 03/19/25 Hi story (Murray Thyroid) Nurse's Note: Patient has a sinus infection that has been going on for a week. Patient has the sinus pressure and drainage. PFSH Medical History Anxiety CVA (cerebral vascular accident) Missed with demise before 20 completed weeks of gestation Non-smoker Surgical History History of cranial surgery S/P LASIK surgery Social History Smoking Status: Never smoker alcohol intake: never HPI HPI Details: PIPPA MEANS, is a 34 F who presents to the office today for initial evaluation at the [facility] for approximately 1-week history of progressively worsening facial pressure/congestion with purulent postnasal drip/cough. No complaints of fever, chills, myalgias, fatigue, runny nose, or nausea/vomiting/diar gricelda. No complaints of chest pain/shortness of breath/dyspnea on exertion. No close contacts with similar complaints. No uwbv-apz-xqshhch products taken to assist. Non-smoker. No other associated symptoms and no other alleviating/aggravat ing factors. ROS Const Constitutional: No other (as above) Exam Const General: cooperative, healthy appearing and no acute distress Nutritional Appearance: average body habitus Orientation: alert, awake and oriented x3 HENMT Head: normal to inspection Ears: hearing grossly normal bilaterally, external ears normal, TM's normal bilaterally and EAC's normal Nose: external nose normal, nares normal, septum normal and no nasal discharge Face and sinus: normal facial exam, sinuses nontender (Though R>L maxillary fullness to palpation) and face symmetric Mouth: oral mucosae normal, lip normal, tongue normal and oropharynx normal Throat: posterior oropharynx normal, tonsils normal, uvula midline and postnasal drainage (Purulent) Eyes General: appearance normal, both eyes and all related structures Neck Neck: normal visual inspection, full ROM, no meningeal signs, supple and lymphadenopathy (Bilateral anterior cervical lymph node swelling/tender to palpation) Neck mass: No Thyroid: thyroid normal Chest Chest palpation inspection: normal inspection of the chest Resp Effort Inspection: normal respiratory effort and able to speak in complete sentences and no unsolicited cough appreciated during today's exam Auscultation: Bilateral: Clear to Auscultation Cardio Palpation: normal PMI Rate: regular rate Rhythm: regular rhythm Heart Sounds: S1 normal, S2 normal, no gallops, no murmurs and no rubs Pulses: radial pulses present GI Inspection: normal to inspection Skin General: no rashes or lesions noted Neuro General: patient alert, patient awake and patient oriented x3 Cognition: normal cognition Speech: speech normal Psych Appearance: grossly normal Mental Status: mental status grossly normal Mood: congruent mood Affect: normal affect Speech and Movement: speech and movement normal Attitude: cooperative Diagnoses Acute maxillary sinusitis, unspecified J01.00 Assessment and Plan Assessment and Plan (1) Acute maxillary sinusitis, unspecified: Status: Acute Plan: Amoxicillin as prescribed today. Supportive measures as instructed today. Declined work excuse upon offering. Follow-up with PCP in 3 to 5 days should symptoms not improve, sooner should symptoms worsen or any other concerns develop. Patient states acknowledging understanding all the above. Coding Level of Care Code Off vis,new,level 3 Diagnoses Sinusitis J32.9 Assessment and Plan Assessment and Plan (1) Sinusitis: Medications: New amoxicillin 500 mg PO TID 30 caps 0RF 03/19/25 0819 Date Osvaldo (more content not included)... Normal [facility] Sjogren's Antibodies A/Bon 0 03-18-2025 ANTI-SS-A < 0.2 Normal 0.0-0.9 [facility] Comment on above: Result Comment: AMENDED REPORT 03/18/25 130 Anti-SS-A previously reported as: Test not performed Performed By: #### L 3100.9100 #### [facility] [address] [place], [place], [id number] ANTI-SS-B < 0.2 Normal 0.0-0.9 [facility] Comment on above: Result Comment: Perf ormed at: - [address] [id number] Cash Person: Kirby Dai PhD, Phone: [phone] AMENDED REPORT 03/18/25 130 Anti-SS-B previously reported as: Test not performed Performed By: #### L 3100.9100 #### [facility] [address] [place], [place], [id number] SS-A IgG antibody assayOrder ed By: Delmer Cole on 03-11-2025 SS-A/Ro IgG Antibody [facility] Comment on above: Test not performed SS-B IgG antibody assayOrder ed By: Delmer Cole on 03-11-2025 SS-B/La IgG Antibody [facility] Comment on above: Test not performed .Thyroglobulin by ELIA [id number] on 03-08-2025 Thyroglob ELIA 14.0 ng/mL Normal 1.5-38.5 [facility] Comment on above: Result Comment: According to the National Academy of Clinical Biochemistry, the reference interval for Thyroglobulin (TG) should be related to euthyroid patients and not for patients who underwent thyroidectomy. TG reference intervals for these patients depend on the residual mass of the thyroid tissue left after surgery. Establishing a post-operative baseline is recommended. The assay limit of quantitation is 0.1 ng/mL Thyroglobulin measured by [facility] [employer] Performed At: [facility] [id number] Suhas Orr PhD Ph:[phone] Performed By: #### M CRSO, [id number] #### [place] [id number] #### FT3, FT4, 532806, TSH #### [address] [address] THYRORFon 03-08-2025 Thyroglob Ab <1.0 Normal 0.0-0.9 [facility] Comment on above: Result Comment: Thyr oglobulin Antibody measured by [facility] [employer] It should be noted that the presence of thyroglobulin antibodies may not be pathogenic nor diagnostic, especially at very low levels. The assay plant care worker has found that four percent of individuals without evidence of thyroid disease or autoimmunity will have positive TgAb levels up to 4 IU/mL. Performed At: [address] [id number] Suhas Orr PhD Ph:[phone] Performed By: #### M CRSO, [id number] #### [place] [address] #### FT3, FT4, 157905, TSH #### [address] [address] FT3on 03-06-2025 Free T3 [Mass/Vol] 3.14 pg/mL Normal 2.30-4.00 [facility] Comment on above: Performed By: #### M CRSO, [id number] #### [place] [address] #### FT3, FT4, 607100, TSH #### [address] [address] FT4on 03-06-2025 Free T4 [Mass/Vol] 0.65 ng/dL Low 0.76-1.46 [facility] Comment on above: Performed By: #### M CRSO, [id number] #### [place] [address] #### FT3, FT4, 376591, TSH #### [address] [address] TSHon 03-06-2025 TSH Qn 1.99 m[IU]/L Normal 0.36-3.74 [facility] Comment on above: Performed By: #### M CRSO, [id number] #### [facility] [address] [place] [address] #### FT3, FT4, 169144, TSH #### [place] [address] [place], [place] [address] aTPOon 03-06-2025 anti-Thyroid Peroxidase <28 Normal 0-60 [facility] Comment on above: Result Comment: No te - New Reference Range in effect 20 Performed By: #### M CRSO, [id number] #### [facility] [address] [place] [address] #### FT3, FT4, 225899, TSH #### [place] [address] [place], [place] [address] PROGESTERONE 4317on 01-05-20 25 PROGESTERONE 10.1 ng/mL Normal . [facility] Comment on above: Order Comment: N Result Comment: Foll icular phase 0.1 - 0.9 Luteal phase 1.8 - 23.9 Ovulation phase 0.1 - 12.0 First trimester 11.0 - 44.3 Second trimester 25.4 - 83.3 Third trimester 58.7 - 214.0 Postmenopausal 0.0 - 0.1 Performed at: [facility] [address] [id number] Cash Person: Kirby Dai PhD, Phone: [phone] Performed By: #### L 501.17624, L506.0400, L501.9520, L801.2600, L3300.1750 ####[facility] [address] [place], [address] Direct serum free thyroxine (FT4) measurementOrdered By: GERRI TREJO on 01-03-2025 Free T4 [Mass/Vol] 0.91 ng/dL 0.76-1.46 [facility] Estradiolon 01-03-2025 ESTRADIOL 130.5 pg/mL Normal [facility] Comment on above: Result Comment: NORM AL REFERENCE RANGES FEMALE FOLLICULAR 21.4 - 164.8 pg/mL MID-CYCLE PEAK 49.9 - 367.2 pg/mL LUTEAL 40.2 - 259.0 pg/mL POST-MENOPAUSAL ON MHT <11.0 - 462.1 pg/mL NOT ON MHT <11.0 - 58.3 pg/mL MALE <11.0 - 52.5 pg/mL NOTE: [facility] HAS CONFIRMED THE DRUG FULVETRANT (FASLODEX) MAY CAUSE FALSELY ELEVATED ESTRADIOL RESULTS WHEN USING THIS TEST METHOD. IF PATIENT IS TAKING FULVESTRANT AN ALTERNATIVE METHOD SHOULD BE USED TO DETERMINE ESTRADIOL CONCENTRATION. Performed By: #### L 501.23495, L506.0400, L501.9520, L801.2600, L3300.1750 ####[facility] [address] [place], [address] Estradiol measurementOrdered By: GERRI TREJO on 01-03-2025 Estradiol (E2) Level 130.5 pg/mL [facility] Comment on above: NORMAL REFERENCE RAN GES FEMALE FOLLICULAR 21.4 - 164.8 pg/mL MID-CYCLE PEAK 49.9 - 367.2 pg/mL LUTEAL 40.2 - 259.0 pg/mL POST-MENOPAUSAL ON MHT <11.0 - 462.1 pg/mL NOT ON MHT <11.0 - 58.3 pg/mL MALE <11.0 - 52.5 pg/mL NOTE:[facility] HAS CONFIRMED THE DRUG FULVETRANT (FASLODEX) MAY CAUSE FALSELY ELEVATED ESTRADIOL RESULTS WHEN USING THIS TEST METHOD. IF PATIENT IS TAKING FULVESTRANT AN ALTERNATIVE METHOD SHOULD BE USED TO DETERMINE ESTRADIOL CONCENTRATION. Free T3on 01-03-2025 Free T3 [Mass/Vol] 3.6 pg/mL Normal 2.18-3.98 [facility] Comment on above: Order Comment: N Performed By: #### L 501.22102, L506.0400, L501.9520, L801.2600, L3300.1750 #### [facility] [address] [place], [place], [id number] Free F0Kwzmgnh By: GERRI LEDESMA on 01-03-2025 Free Triiodothyronine (T3) pg/dL 3.6 pg/mL 2.18-3.98 [facility] Quantitative serum progester one measurement by electrochemiluminescence immunoassay (Ordered By: GERRI TREJO on 01-03-2025 Progesterone Level 10.1 ng/mL . [facility] Comment on above: Follicular phase 0.1 - 0.9 Luteal phase 1.8 - 23.9 Ovulation phase 0.1 - 12.0 First trimester 11.0 - 44.3 Second trimester 25.4 - 83.3 Third trimester 58.7 - 214.0 Postmenopausal 0.0 - 0.1Performed at: [address] [id number] Director: Kirby Dai PhD, Phone: [phone] T4 Free Directon 01-03-2025 T4 FREE DIRECT 0.91 ng/dL Normal 0.76-1.46 [facility] Comment on above: Order Comment: N Performed By: #### L 501.98676, L506.0400, L501.9520, L801.2600, L3300.1750 #### [facility] [address] [place], [place], [id number] TSH QnOrdered By: GERRI OLIVO on 01-03-2025 Thyroid Stimulating Hormone (TSH) 3.400 uIU/mL 0.358-3.740 [facility] Thyroid Stim Hormone (TSH)on 01-03-2025 TSH 3.400 uIU/mL Normal 0.358-3.740 [facility] Comment on above: Performed By: #### L 501.79945, L506.0400, L501.9520, L801.2600, L3300.1750 #### [facility] [address] [place], [place], [id number] CNOVon 11-24-2024 CNOV Office Visit (UCWSTR) PIPPA MEANS ([id number]) 1990 F CHT Date Time Provider Department 11/24/24 11:45 AM [facility] During your visit today, we recorded the following information about you: Temperature Pulse Respiration Blood pressure 98.7 degrees 107/minute 16/minute 109/75 Weight 51.9 kg Jose Kyle MD 11/24/2024 12:36 PM Signed Patient presents with: Cough: With intermittent fever AND laryngitis x3 days HPI: Feeling sick with sore throat initially 3 days ago. She felt nearly back to normal until last night when she had abrupt onset of illness. Positive symptoms: Cough, Fever (102), Sore throat, Post nasal drainage, hoarse voice, Chills, Body Aches, Malaise, Diarrhea, chest tightness Negative symptoms: Shortness of breath, Chest pain, Rhinorrhea, Vomiting, OTC: Ibuprofen, Tylenol Home COVID test negative. Her daughter has had 2 antibiotics for pneumonia. Her 8-month-old has not had influenza vaccine. MEDICATIONS: No current outpatient medications on file. No current facility-administere d medications for this visit. ALLERGIES: ALLERGIES No Known Allergies VITALS: BP 109/75 Pulse 107 Temp 37.1 ?C (98.7 ?F) (Left Tympanic) Resp 16 Wt 51.9 kg (114 lb 6.7 oz) LMP 10/08/2024 (Exact Date) SpO2 99% BMI 20.27 kg/m? PHYSICAL EXAM: GEN: mildly ill appearing HEENT: PERRL, EOMI, conjunctiva clear Ears: canals clear. TMs without erythema, bulge, or effusion Sinuses: non-tender frontal sinus, non-tender maxillary sinuses Throat: moist mucous membranes, mild erythema, no exudate; hoarse voice Neck: supple, no thyromegaly, no lymphadenopathy HEART: regular rate, regular rhythm, no murmurs LUNGS: clear to auscultation, no wheezes or crackles, no increased WOB ASSESSMENT/PLAN: 1. Influenza-like illness - ICD9: 487.1, ICD10: J11.1 - suspect viral URI - Discussed supportive care treatment with rest, cold medicine, and analgesia. - COVID AND INFLUENZA A/B AND RSV PCR, ROUTINE Patient would not like antiviral treatment for herself but would like to know if she has influenza due to exposure of her family. Jose Kyle MD Referring Provider: SELF [200] Allergies As of Date: 11/24/2024 (No Known Allergies) Date Reviewed: 11/24/2024 Reviewed by: Alicia Andrew MA - Fully Assessed Reason for Visit: Cough [28] Cmt: With intermittent fever AND laryngitis x3 days Primary Visit Diagnosis:Influenza- like illness [J11.1] Order(s):COVID AND INFLUENZA A/B AND RSV PCR, ROUTINE [SQCVFLRS] Order #: [id number]. 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 Level of Service: OFFICE/OUTPATIENT ESTABLISHED LOW MDM 20 MIN [48095] Encounter Status:Closed by JOSE KYLE on 11/24/[address] [facility] COVID AND INFLUENZA A/B AND RSV PCR, ROUTINEon 11-24-2024 SARS-CoV-2 (COVID-19) RNA LISA+probe Ql (Unsp spec) SARS-COV-2 (AGENT OF COVID-19) RNA: Not detected INFLUENZA A RNA: Not detected INFLUENZA B RNA: Not detected RESPIRATORY SYNCYTIAL VIRUS (RSV) RNA: Not detected Normal [facility] Comment on above: Performed By: #### C VFLRS #### [facility] CLIA [id number] [address] [place] [address] CNOVon 10-26-2024 CNOV Office Visit (UCWSTR) MEANSPIPPA Gala ([id number]) 1990 F CHT Date Time Provider Department 10/26/24 8:30 AM [facility] During your visit today, we recorded the following information about you: Temperature Pulse Respiration Blood pressure 97.8 degrees 116/minute 16/minute 108/78 Weight Last Period 53.6 kg 10/08/24 Nishi Dean APRN.MORNING BABYSITTER 10/26/2024 8:55 AM Signed Subjective HPI HPI Pippa Means is a 34 year old female who presents today for CC of st, fever, congestion. This started 3 days ago. Has tried otc medication for relief. Symptoms are worsened by nothing. Risk factors sick exposures at home. nonsmoker. .Patient presents with: Sore Throat: With intermittent fever AND congestion x 3 days PAST MEDICAL HISTORY Diagnosis Date Craniostenosis anxiety anxiety Stroke, vertebral artery (HCC) 09/08/2016 Right vertebral artery disection Uterine fibroid seen on ultrasound 09/06/2019 PAST SURGICAL HISTORY Procedure Laterality Date INSERTION OF IUD 06/29/2017 paragard-removed LASIK 2015 both eyes PAST SURGICAL HISTORY OF Craniostenosis SUCTION D AND C 03/19/2022 17 weeks by GA, 11w3 d CRL, ALLERGIES Patient has no known allergies. MEDICATIONS liothyronine (CYTOMEL) 5 mcg tablet Take 5 mcg by mouth once daily. escitalopram oxalate (LEXAPRO) 10 mg tablet Take 10 mg by mouth once daily. (Patient not taking: Reported on 02/14/2024) MEDICATION, NON-DATABASE Collagen Powder (Patient not taking: Reported on 10/26/2024) Krdfdscx-Rt-Ucw-Fe-F A ( VITAMIN) tab Take 1 tablet by mouth once daily. (Patient not taking: Reported on 10/26/2024) FAMILY HISTORY Problem Relation Age of Onset Cancer Mother lymphoma Heart Father other (benign brain tumor) Father None Sister None Sister None Brother other (other) Maternal Grandmother Parkinson?s Disease Maternal Grandfather Macular Degen Paternal Grandmother other (ALS) Paternal Grandfather No Known Problems Daughter Social History Tobacco Use Smoking status: Never Smokeless tobacco: Never Vaping Use Vaping status: Never Used Substance Use Topics Alcohol use: Not Currently Comment: rare Drug use: No Review of Systems Constitutional: Negative for fever. HENT: Positive for congestion and sore throat. Negative for ear pain and nosebleeds. Respiratory: Negative for cough, shortness of breath and wheezing. Musculoskeletal: Negative for neck pain. Objective Blood pressure 108/78, pulse 116, temperature 36.6 ?C (97.8 ?F), temperature source Left Tympanic, resp. rate 16, weight 53.6 kg (118 lb 2.7 oz), last menstrual period 10/08/2024, SpO2 97%. Physical Exam Constitutional: General: She is not in acute distress. Appearance: She is not toxic-appearing or diaphoretic. HENT: Head: Normocephalic and atraumatic. Right Ear: Hearing, tympanic membrane, ear canal and external ear normal. Left Ear: Hearing, tympanic membrane, ear canal and external ear normal. Nose: Nose normal. Mouth/Throat: Lips: Sundown. Mouth: Mucous membranes are moist. Pharynx: Uvula midline. Posterior oropharyngeal erythema present. No pharyngeal swelling, oropharyngeal exudate or uvula swelling. Eyes: General: Lids are normal. No scleral icterus. Right eye: No discharge. Left eye: No discharge. Conjunctiva/sclera: Conjunctivae normal. Pupils: Pupils are equal, round, and reactive to light. Neck: Trachea: Trachea normal. Cardiovascular: Rate and Rhythm: Normal rate and regular rhythm. Heart sounds: Normal heart sounds. Pulmonary: Effort: Pulmonary effort is normal. Breath sounds: Normal breath sounds. Musculoskeletal: Cervical back: Normal range of motion and neck supple. Lymphadenopathy: Cervical: No cervical adenopathy. Right cervical: No superficial cervical adenopathy. Left cervical: No superficial cervical adenopathy. Skin: Findings: No rash. Neurological: Mental Status: She is alert and oriented to person, place, and time. ASSESSMENT/PLAN: 1. Sore throat - ICD9: 462, ICD10: J02.9 - suspect viral - Group A strep molecular testing negative - Discussed supportive care treatment with fluids, rest and analgesia. 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 #:[id number] Prescriptions as of 10/26/2024 - liothyronine (CYTOMEL) 5 mcg tablet Take 5 mcg by mouth once daily. - escitalopram oxalate (LEXAPRO) 10 (more content not included)... Normal [facility] STREP A MOLECULAR (POC)on Procedural Control Valid [facility] Strep A (POCT) Negative Negative [facility] .Auto Diffon 03-10-2024 Basophil, Absolute 0.0 10 3/mcL Normal 0.0-0.2 [facility] ([place]) Comment on above: Performed By: #### C BC, ANEU, ADIFF #### [address] [address] Basophils/100 WBC (Bld) 0.2 % Normal 0.0-2.5 [facility] ([place]) Comment on above: Performed By: #### C BC, ANEU, ADIFF #### [address] [address] Eosinophil, Absolute 0.0 10 3/mcL Normal 0.0-0.4 [facility] ([place]) Comment on above: Performed By: #### C BC, ANEU, ADIFF #### [address] [address] Eosinophils/100 WBC (Bld) 0.4 % Normal 0.0-7.0 [facility] ([place]) Comment on above: Performed By: #### C BC, ANEU, ADIFF #### [address] [address] Lymphocyte, Absolute 1.3 10 3/mcL Normal 0.8-3.9 [facility] ([place]) Comment on above: Performed By: #### C BC, ANEU, ADIFF #### [address] [address] Lymphocytes/100 WBC (Bld) 12.3 % Normal 10.0-50.0 [facility] ([place]) Comment on above: Performed By: #### C BC, ANEU, ADIFF #### [address] [address] Monocyte, Absolute 0.7 10 3/mcL Normal 0.2-1.0 [facility] ([place]) Comment on above: Performed By: #### C BC, ANEU, ADIFF #### [address] [address] Monocytes/100 WBC (Bld) 6.7 % Normal 1.7-13.0 [facility] ([place]) Comment on above: Performed By: #### C BC, ANEU, ADIFF #### [address] [address] Neutrophils/100 WBC (Bld) 80.4 % High 37.0-80.0 [facility] ([place]) Comment on above: Performed By: #### C PHILLIP WEEKS, ADIFF #### [address] [address] .NEUABSon 03-10-2024 Neutrophil, Absolute 8.4 10 3/mcL High 2.9-6.2 [facility] ([place]) Comment on above: Performed By: #### C PHILLIP WEEKS, ADIFF #### [place] [address] CBCon 03-10-2024 Erythrocyte distribution width (RBC) [Ratio] 13.2 % Normal 11.5-14.5 [facility] ([place]) Comment on above: Performed By: #### C PHILLIP WEEKS, ADIFF #### [place] [address] Hematocrit (Bld) [Volume fraction] 33.1 % Low 37.0-47.0 [facility] ([place]) Comment on above: Performed By: #### C PHILLIP WEEKS, ADIFF #### [place] [address] Hgb 11.8 G/dL Low 12.0-16.0 [facility] ([place]) Comment on above: Performed By: #### C PHILLIP WEEKS, ADIFF #### [place] [id number] MCH (RBC) [Entitic mass] 30.4 pg Normal 27.0-31.2 [facility] ([place]) Comment on above: Performed By: #### C PHILLIP WEEKS, ADIFF #### [place] [address] MCHC 35.6 G/dL Normal 33.0-37.0 [facility] ([place]) Comment on above: Performed By: #### C PHILLIP WEEKS, ADIFF #### [place] [id number] MCV (RBC) [Entitic vol] 85.3 fL Normal 80.0-94.0 [facility] ([place]) Comment on above: Performed By: #### C BC, ANEU, ADIFF #### [address] [place], [place] [address] Platelet 202 10 3/mcL Normal 130-400 [facility] ([place]) Comment on above: Performed By: #### C BC, ANEU, ADIFF #### [address] [place], [place] [address] Platelet mean volume (Bld) [Entitic vol] 7.4 fL Normal 7.4-10.4 [facility] ([place]) Comment on above: Performed By: #### C BC, ANEU, ADIFF #### [address] [place], [place] [address] RBC 3.88 10 6/mcL Low 4.20-5.40 [facility] ([place]) Comment on above: Performed By: #### C DESI, PHILLIP, ADIFF #### [address] [place], [place] [address] WBC 10.4 10 3/mcL Normal 4.6-10.8 [facility] ([place]) Comment on above: Performed By: #### C DESI, PHILLIP, ADIFF #### [address] [place], [place] [address] LABORATORYOrdered By: SYSTEM SYSTEM on 03-10-2024 Basophil, Absolute 0.0 103/mcL Normal 0.0 - 0.2 10^3/mcL AO Workflow SS Basophils/100 WBC (Bld) 0.2 % Normal 0.0 - 2.5 % AO Workflow SS Eosinophil, Absolute 0.0 103/mcL Normal 0.0 - 0 .4 10^3/mcL AO Workflow SS Eosinophils/100 WBC (Bld) 0.4 % Normal 0.0 - 7.0 % AO Workflow SS Erythrocyte distribution width (RBC) [Ratio] 13.2 % Normal 11.5 - 14.5 % AO Workflow SS Hematocrit (Bld) [Volume fraction] 33.1 % Low 37.0 - 47.0 % AO Workflow SS Hemoglobin (Bld) [Mass/Vol] 11.8 G/dL Low 12.0 - 16.0 G/dL AO Workflow SS Lymphocyte, Absolute 1.3 103/mcL Normal 0.8 - 3 .9 10^3/mcL AO Workflow SS Lymphocytes/100 WBC (Bld) 12.3 % Normal 10 .0 - 50.0 % AO Workflow SS MCH (RBC) [Entitic mass] 30.4 pg Normal 27. 0 - 31.2 pg AO Workflow SS MCHC 35.6 G/dL Normal 33.0 - 37.0 G/dL AO Workflow SS MCV (RBC) [Entitic vol] 85.3 fL Normal 80.0 - 94.0 fL AO Workflow SS Monocyte, Absolute 0.7 103/mcL Normal 0.2 - 1.0 10^3/mcL AO Workflow SS Monocytes/100 WBC (Bld) 6.7 % Normal 1.7 - 13.0 % AO Workflow SS Neutrophil, Absolute 8.4 103/mcL High 2.9 - 6 .2 10^3/mcL AO Workflow SS Neutrophils/100 WBC (Bld) 80.4 % High 37 .0 - 80.0 % AO Workflow SS Platelet mean volume (Bld) [Entitic vol] 7.4 fL Normal 7.4 - 10.4 fL AO Workflow SS Platelets (Bld) [#/Vol] 202 103/mcL Normal 130 - 400 10^3/mcL AO Workflow SS RBC (Bld) [#/Vol] 3.88 106/mcL Low 4.20 - 5.4 0 10^6/mcL AO Workflow SS WBC (Bld) [#/Vol] 10.4 103/mcL Normal 4.6 - 10.8 10^3/mcL AO Workflow SS RPRon 03-10-2024 Reagin Ab RPR Ql (S) Non-Reactive Normal Non-Nica ctiv e [facility] ([place]) Comment on above: Result Comment: The RPR test is a non-treponemal assay useful as an aid in the diagnosis of primary and secondary syphilis. It converts to positive generally within 2 weeks after the appearance of a lesion. This test is also useful for monitoring response to antibiotic therapy. A positive RPR screening test will be followed by the FTA ABS test. False positive RPR tests may occur in 1) patients with underlying autoimmune disorders, 2) elderly patients, 3) , and 4) other conditions with abnormal serum globulins. Performed By: #### R CT #### [place] [id number] #### CBC, ADIFF, ANEU, ABSGEL, ABOGEL #### [address] [address] .Auto Diffon 03-09-2024 Basophil, Absolute 0.0 10 3/mcL Normal 0.0-0.2 [facility] ([place]) Comment on above: Performed By: #### R CT #### [place] [address] #### CBC, ADIFF, ANEU, ABSGEL, ABOGEL #### [address] [address] Basophils/100 WBC (Bld) 0.3 % Normal 0.0-2.5 [facility] ([place]) Comment on above: Performed By: #### R CT #### [place] [address] #### CBC, ADIFF, ANEU, ABSGEL, ABOGEL #### [address] [address] Eosinophil, Absolute 0.0 10 3/mcL Normal 0.0-0.4 [facility] ([place]) Comment on above: Performed By: #### R CT #### [place] [address] #### CBC, ADIFF, ANEU, ABSGEL, ABOGEL #### [address] [address] Eosinophils/100 WBC (Bld) 0.6 % Normal 0.0-7.0 [facility] ([place]) Comment on above: Performed By: #### R CT #### [place] [address] #### CBC, ADIFF, ANEU, ABSGEL, ABOGEL #### [address] [address] Lymphocyte, Absolute 1.5 10 3/mcL Normal 0.8-3.9 [facility] ([place]) Comment on above: Performed By: #### R CT #### [place] [address] #### CBC, ADIFF, ANEU, ABSGEL, ABOGEL #### [address] [address] Lymphocytes/100 WBC (Bld) 18.1 % Normal 10.0-50.0 [facility] ([place]) Comment on above: Performed By: #### R CT #### [place] [address] #### CBC, ADIFF, ANEU, ABSGEL, ABOGEL #### [address] [address] Monocyte, Absolute 0.5 10 3/mcL Normal 0.2-1.0 [facility] ([place]) Comment on above: Performed By: #### R CT #### [place] [address] #### CBC, ADIFF, ANEU, ABSGEL, ABOGEL #### [address] [address] Monocytes/100 WBC (Bld) 6.2 % Normal 1.7-13.0 [facility] ([place]) Comment on above: Performed By: #### R CT #### [place] [address] #### CBC, ADIFF, ANEU, ABSGEL, ABOGEL #### [address] [address] Neutrophils/100 WBC (Bld) 74.8 % Normal 37.0-80.0 [facility] ([place]) Comment on above: Performed By: #### R CT #### [place] [address] #### CBC, ADIFF, ANEU, ABSGEL, ABOGEL #### [address] [address] .NEUABSon 03-09-2024 Neutrophil, Absolute 6.2 10 3/mcL Normal 2.9-6.2 [facility] ([place]) Comment on above: Performed By: #### R CT #### [place] [id number] #### CBC, ADIFF, ANEU, ABSGEL, ABOGEL #### [address] [address] ABO/Rh (Gel)on 03-09-2024 ABO/Rh Interp Positive Invalid Interpretation Code [facility] ([place]) Comment on above: Performed By: #### R CT #### [place] [id number] #### CBC, ADIFF, ANEU, ABSGEL, ABOGEL #### [address] [address] ABS (Gel)on 03-09-2024 ABSC Interp (Gel) Negative Normal [facility] ([place]) Comment on above: Performed By: #### R CT #### [place] [address] #### CBC, ADIFF, ANEU, ABSGEL, ABOGEL #### [address] [address] CBCon 03-09-2024 Erythrocyte distribution width (RBC) [Ratio] 13.4 % Normal 11.5-14.5 [facility] ([place]) Comment on above: Performed By: #### R CT #### [place] [address] #### CBC, ADIFF, ANEU, ABSGEL, ABOGEL #### [address] [address] Hematocrit (Bld) [Volume fraction] 33.7 % Low 37.0-47.0 [facility] ([place]) Comment on above: Performed By: #### R CT #### [place] [address] #### CBC, ADIFF, ANEU, ABSGEL, ABOGEL #### [address] [address] Hgb 12.2 G/dL Normal 12.0-16.0 [facility] ([place]) Comment on above: Performed By: #### R CT #### [place] [address] #### CBC, ADIFF, ANEU, ABSGEL, ABOGEL #### [address] [address] MCH (RBC) [Entitic mass] 30.4 pg Normal 27.0-31.2 [facility] ([place]) Comment on above: Performed By: #### R CT #### [place] [address] #### CBC, ADIFF, ANEU, ABSGEL, ABOGEL #### [address] [address] MCHC 36.1 G/dL Normal 33.0-37.0 [facility] ([place]) Comment on above: Performed By: #### R CT #### [place] [address] #### CBC, ADIFF, ANEU, ABSGEL, ABOGEL #### [address] [address] MCV (RBC) [Entitic vol] 84.1 fL Normal 80.0-94.0 [facility] ([place]) Comment on above: Performed By: #### R CT #### [place] [address] #### CBC, ADIFF, ANEU, ABSGEL, ABOGEL #### [address] [address] Platelet 235 10 3/mcL Normal 130-400 [facility] ([place]) Comment on above: Performed By: #### R CT #### [place] [address] #### CBC, ADIFF, ANEU, ABSGEL, ABOGEL #### [address] [address] Platelet mean volume (Bld) [Entitic vol] 7.5 fL Normal 7.4-10.4 [facility] ([place]) Comment on above: Performed By: #### R CT #### [place] [address] #### CBC, ADIFF, ANEU, ABSGEL, ABOGEL #### [address] [address] RBC 4.01 10 6/mcL Low 4.20-5.40 [facility] ([place]) Comment on above: Performed By: #### R CT #### [address] [address] #### CBC, ADIFF, ANEU, ABSGEL, ABOGEL #### [place] [id number] [place], [place] [address] WBC 8.3 10 3/mcL Normal 4.6-10.8 [facility] ([place]) Comment on above: Performed By: #### R CT #### [place] [id number] #### CBC, ADIFF, ANEU, ABSGEL, ABOGEL #### [place] [id number] [place], [place] [address] LABORATORYOrdered By: Jono Iglesias on 03-09-2024 ABO and Rh group Nom (Bld) Blood group B Rh(D) positive Invalid Interpretation Code AO BB Auto SS Blood group antibody screen Ql Negative ABSC (03/09/24 4:07 PM) Normal AO BB Auto SS LABORATORYOrdered By: SYSTEM SYSTEM on 03-09-2024 Basophil, Absolute 0.0 103/mcL Normal 0.0 - 0.2 10^3/mcL AO Workflow SS Basophils/100 WBC (Bld) 0.3 % Normal 0.0 - 2.5 % AO Workflow SS Eosinophil, Absolute 0.0 103/mcL Normal 0.0 - 0 .4 10^3/mcL AO Workflow SS Eosinophils/100 WBC (Bld) 0.6 % Normal 0.0 - 7.0 % AO Workflow SS Erythrocyte distribution width (RBC) [Ratio] 13.4 % Normal 11.5 - 14.5 % AO Workflow SS Hematocrit (Bld) [Volume fraction] 33.7 % Low 37.0 - 47.0 % AO Workflow SS Hemoglobin (Bld) [Mass/Vol] 12.2 G/dL Normal 12.0 - 16.0 G/dL AO Workflow SS Lymphocyte, Absolute 1.5 103/mcL Normal 0.8 - 3 .9 10^3/mcL AO Workflow SS Lymphocytes/100 WBC (Bld) 18.1 % Normal 10 .0 - 50.0 % AO Workflow SS MCH (RBC) [Entitic mass] 30.4 pg Normal 27. 0 - 31.2 pg AO Workflow SS MCHC 36.1 G/dL Normal 33.0 - 37.0 G/dL AO Workflow SS MCV (RBC) [Entitic vol] 84.1 fL Normal 80.0 - 94.0 fL AO Workflow SS Monocyte, Absolute 0.5 103/mcL Normal 0.2 - 1.0 10^3/mcL AO Workflow SS Monocytes/100 WBC (Bld) 6.2 % Normal 1.7 - 13.0 % AO Workflow SS Neutrophil, Absolute 6.2 103/mcL Normal 2.9 - 6 .2 10^3/mcL AO Workflow SS Neutrophils/100 WBC (Bld) 74.8 % Normal 37 .0 - 80.0 % AO Workflow SS Platelet mean volume (Bld) [Entitic vol] 7.5 fL Normal 7.4 - 10.4 fL AO Workflow SS Platelets (Bld) [#/Vol] 235 103/mcL Normal 130 - 400 10^3/mcL AO Workflow SS RBC (Bld) [#/Vol] 4.01 106/mcL Low 4.20 - 5.4 0 10^6/mcL AO Workflow SS WBC (Bld) [#/Vol] 8.3 103/mcL Normal 4.6 - 10.8 10^3/mcL AO Workflow SS LABORATORYOrdered By: Jina Cedeño on 03-09-2024 Reagin Ab RPR Ql (S) Non-Reactive 1 (03/09/24 4:07 PM) Normal Non-Reactiv e AH Man Viro/Sero SS Comment on above: Interpretive Data: T he RPR test is a non-treponemal assay useful as an aid in the diagnosis of primary and secondary syphilis. It converts to positive generally within 2 weeks after the appearance of a lesion. This test is also useful for monitoring response to antibiotic therapy. A positive RPR screening test will be followed by the FTA ABS test. False positive RPR tests may occur in 1) patients with underlying autoimmune disorders, 2) elderly patients, 3) , and 4) other conditions with abnormal serum globulins. LABORATORYOrdered By: Mary Arthur on 03-09-2024 ABO and Rh group Nom (Bld) B positive (03/09/24 4:02 PM) [facility] Work Phone: Group B Strep Date Performed [id number] [facility] Work Phone: Group B Strep, External Negative (03/09/24 4:02 PM) [facility] Work Phone: Hepatitis B Date Performed [id number] [facility] Work Phone: Hepatitis B, External Negative (03/09/24 4:02 PM) [facility] Work Phone: HIV Antibodies, External Negative (03/09/24 4:02 PM) [facility] Work Phone: RPR, External Nonreactive (03/09/24 4:02 PM) [facility] Work Phone: Rubella, External Immune (03/09/24 4:02 PM) [facility] Work Phone: LABORATORYOrdered By: Kristin Michelle on 02-19-2024 Appearance (U) Clear (02/19/24 10:47 AM) Normal Clear AO Auto Urine SS Bilirubin Ql (U) Negative (02/19/24 10:47 AM) Normal Negative AO Auto Urine SS Color (U) Yellow (02/19/24 10:47 AM) Normal AO Auto Urine SS Glucose Test strip (U) [Mass/Vol] Negative Normal Negative AO Auto Urine SS Hemoglobin Auto test strip (U) [Mass/Vol] Negative (02/19/24 10:47 AM) Normal Negative AO Auto Urine SS Ketones Ql (U) Negative Normal Negative AO Auto Urine SS UA Leuk Est Negative (02/19/24 10:47 AM) Normal Negative AO Auto Urine SS UA Nitrite Negative (02/19/24 10:47 AM) Normal Negative AO Auto Urine SS UA pH 7.5 (02/19/24 10:47 AM) Normal 5.0 - 8.0 AO Auto Urine SS UA Protein Negative Normal Negative AO Auto Urine SS UA Spec Grav 1.020 (02/19/24 10:47 AM) Normal 1.015-1.025 AO Auto Urine SS UA Specimen Type Clean Catch (02/19/24 10:47 AM) Normal AO Auto Urine SS UA Urobilinogen 0.2 E.U./dL Normal 0.2-1.0 AO Auto Urine SS LABORATORYOrdered By: Forest Marshall on 02-19-2024 ABO and Rh group Nom (Bld) B positive (02/19/24 10:20 AM) [facility] Work Phone: Chlamydia, External Negative (02/19/24 10:20 AM) [facility] Work Phone: Chlamydia, External Date Performed [id number] [facility] Work Phone: Gonorrhea, External Negative (02/19/24 10:20 AM) [facility] Work Phone: Gonorrhea, External Date Performed [id number] [facility] Work Phone: Group B Strep Date Performed [id number] [facility] Work Phone: Group B Strep, External Negative (02/19/24 10:20 AM) [facility] Work Phone: Hepatitis B Date Performed [id number] [facility] Work Phone: Hepatitis B, External Negative (02/19/24 10:20 AM) [facility] Work Phone: HIV Antibodies, External Negative (02/19/24 10:20 AM) [facility] Work Phone: HIV Date Performed [id number] [facility] Work Phone: RPR Date Performed [id number] [facility] Work Phone: RPR, External Nonreactive (02/19/24 10:20 AM) [facility] Work Phone: Rubella Date Performed [id number] [facility] Work Phone: Rubella, External Immune (02/19/24 10:20 AM) [facility] Work Phone: UAon 02-19-2024 Color (U) Yellow Normal [facility] ([place]) Comment on above: Performed By: #### R CT #### [place] [id number] #### CBC, ADIFF, ANEU, ABSGEL, ABOGEL #### [address] [address] Glucose (U) [Mass/Vol] Negative Normal Negative [facility] ([place]) Comment on above: Performed By: #### R CT #### [place] [id number] #### CBC, ADIFF, ANEU, ABSGEL, ABOGEL #### [address] [address] Ketones Ql (U) Negative Normal Negative [facility] ([place]) Comment on above: Performed By: #### R CT #### [place] [address] #### CBC, ADIFF, ANEU, ABSGEL, ABOGEL #### [address] [address] UA Appear Clear Normal Clear [facility] ([place]) Comment on above: Performed By: #### R CT #### [place] [address] #### CBC, ADIFF, ANEU, ABSGEL, ABOGEL #### [address] [address] UA Blood Negative Normal Negative [facility] ([place]) Comment on above: Performed By: #### R CT #### [place] [address] #### CBC, ADIFF, ANEU, ABSGEL, ABOGEL #### [address] [address] UA Leuk Est Negative Normal Negative [facility] ([place]) Comment on above: Performed By: #### R CT #### [place] [address] #### CBC, ADIFF, ANEU, ABSGEL, ABOGEL #### [address] [address] UA Nitrite Negative Normal Negative [facility] ([place] Comment on above: Performed By: #### R CT #### [place] [address] #### CBC, ADIFF, ANEU, ABSGEL, ABOGEL #### [address] [address] UA pH 7.5 Normal 5.0 - 8.0 [facility] ([place]) Comment on above: Performed By: #### R CT #### [place] [id number] #### CBC, ADIFF, ANEU, ABSGEL, ABOGEL #### [address] [address] UA Protein Negative Normal Negative [facility] (OR) Comment on above: Performed By: #### R CT #### [place] [id number] #### CBC, ADIFF, ANEU, ABSGEL, ABOGEL #### [address] [address] UA Spec Grav 1.020 Normal 1.015-1.025 [facility] ([place]) Comment on above: Performed By: #### R CT #### [place] [address] #### CBC, ADIFF, ANEU, ABSGEL, ABOGEL #### [address] [address] UA Specimen Type Clean Catch Normal [facility] ([place]) Comment on above: Performed By: #### R CT #### [place] [address] #### CBC, ADIFF, ANEU, ABSGEL, ABOGEL #### [address] [address] UA Urobilinogen 0.2 E.U./dL Normal 0.2-1.0 [facility] ([place]) Comment on above: Performed By: #### R CT #### [address] [address] #### CBC, ADIFF, ANEU, ABSGEL, ABOGEL #### [address] [address] Urobilinogen (U) [Mass/Vol] Negative Normal Negative [facility] ([place]) Comment on above: Performed By: #### R CT #### [address] [address] #### CBC, ADIFF, ANEU, ABSGEL, ABOGEL #### [place] [id number] [place], [place] [address] CNOVon 02-14-2024 CNOV Office Visit (UCTR) PIPPA MEANS ([id number]) 1990 F CHT Date Time Provider Department 02/14/24 9:30 AM ILIA FREGOSO [facility] During your visit today, we recorded the following information about you: Temperature Pulse Respiration Blood pressure 98 degrees 124/minute 18/minute 94/64 Weight 61.8 kg Ilia Fregoso PA 02/14/2024 9:46 AM Signed This note was created using Dibspaceriter. Subjective Pippa Means is a 33 year old female. HPI 33-year-old female 37 weeks presents for sinus congestion, sinus pressure, sinus pain, fatigue for the last week. Patient states that she started getting nasal congestion about a week ago. She states that now feels like it is moved into her sinuses. She does have history of sinus infections. She states that she has not had a cough. No fevers. No vomiting or diarrhea. She is still able to eat and drink. She has normal movement. No vaginal bleeding or discharge. No other complaint. 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 MEDICATIONS Sfwupxlp-Tv-Qqt-Fe-F A ( VITAMIN) tab Take 1 tablet by mouth once daily. amoxicillin-clavulan ate potassium (AUGMENTIN) 875-125 mg per tablet Take 1 tablet by mouth two times a day for 5 days. escitalopram oxalate (LEXAPRO) 10 mg tablet Take 10 mg by mouth once daily. (Patient not taking: Reported on 02/14/2024) MEDICATION, NON-DATABASE Collagen Powder FAMILY HISTORY Problem Relation Age of Onset Cancer Mother lymphoma Heart Father other (benign brain tumor) Father None Sister None Sister None Brother other (other) Maternal Grandmother Parkinson?s Disease Maternal Grandfather Macular Degen Paternal Grandmother other (ALS) Paternal Grandfather No Known Problems Daughter Social History Tobacco Use Smoking status: Never Smokeless tobacco: Never Vaping Use Vaping Use: Never used Substance Use Topics Alcohol use: Not Currently Comment: rare Drug use: No Review of Systems Constitutional: Positive for fatigue. Negative for chills and fever. HENT: Positive for congestion, sinus pressure and sinus pain. Negative for ear pain and sore throat. Respiratory: Negative for cough and shortness of breath. Cardiovascular: Negative for chest pain. Gastrointestinal: Negative for diarrhea and vomiting. Objective BP 94/64 Pulse (!) 124 Temp 36.7 ?C (98 ?F) (Tympanic) Resp 18 Wt 61.8 kg (136 lb 3.9 oz) LMP 05/03/2023 (Exact Date) SpO2 100% BMI 24.13 kg/m? Physical Exam Vitals and nursing note reviewed. Constitutional: General: She is not in acute distress. Appearance: Normal appearance. She is not toxic-appearing. HENT: Right Ear: Tympanic membrane and ear canal normal. Left Ear: Tympanic membrane and ear canal normal. Nose: Mucosal edema and congestion present. Right Sinus: Maxillary sinus tenderness present. Left Sinus: Maxillary sinus tenderness present. Mouth/Throat: Mouth: Mucous membranes are moist. Pharynx: No oropharyngeal exudate or posterior oropharyngeal erythema. Eyes: Conjunctiva/sclera: Conjunctivae normal. Cardiovascular: Rate and Rhythm: Regular rhythm. Tachycardia present. Pulmonary: Effort: Pulmonary effort is normal. Breath sounds: Normal breath sounds. Neurological: Mental Status: She is alert. Assessment and Plan ASSESSMENT/PLAN: 1. Bacterial sinusitis - ICD9: 473.9, 041.9, ICD10: J32.9, B96.89 - Will begin treatment with Augmentin 875 mg PO BID for 5 days. -Given patient list of medications that are safe in to take for symptoms. -Blood pressure is 94/64. Patient states her blood pressure is always on the low side. She is slightly tachycardic, but heart rate did come down on exam to 110. Pulse ox normal. Afebrile. -Vies patient if she gets any chest pain, shortness of breath, go to ER. She understands. - Supportive care with plenty of fluids, rest, and analgesia prn. Diagnosis and treatment plan were discussed and questions were answered to the patient's satisfaction. Pt acknowledged understanding of concepts and follow up plan. Specific signs and symptoms that would indicate the need for higher level of care were discussed in detail warranting prompt ER evaluation. [facility] Allergies As of Date: 02/14/2024 (No Known Allergies) Date Reviewed: 02/14/2024 Reviewed by: Maria L Orlando LPN - Fully Assessed Reason for Visit: Sinus Probl (more content not included)... Normal [facility] Serum or plasma choriogonado tropin detectionOrdered By: Alia Huerta on 07-21-2023 HCG ( test) Ql 318155 mIU/mL <4 [facility] Comment on above: hCG levels with Gest ational AgeGestational Age hCG mIU/mL (IU/L)0.2 - 1 week 5 - 501-2 weeks 50 - 5002-3 weeks 100 - 37329-8 weeks 500 - 892968-7 weeks 1000 - 664008-7 weeks 11975 - 100,0006-8 weeks 25677 - 200,0002-3 months [address] - 100,000 US PELVIS NON-OB W/TRANSVAGI NALon 06-22-2023 US PELVIS NON-OB W/TRANSVAGINAL ORIGINAL EXAMINATION: TRANSVAGINAL PELVIC ULTRASOUND7/ 3:31 pm Ultrasound pelvis, transabdominal and transvaginal COMPARISON: None HISTORY: ORDERING SYSTEM PROVIDED HISTORY: Reason for Exam: irregular menstruation, FINDINGS: The uterus is 10.1 x 4.4 x 6.5 cm. There is a calcified intramural mass in the anterior uterine body region that is 3 cm. The endometrium is 6 mm double wall thickness which is normal.. Right ovary: 3.4 x 1.5 x 2.7 cm. No suspicious lesions. There is blood flow to the ovary. Left ovary: 2.6 x 2.2 x 2.1 cm. There is a 2 cm solid-appearing ovarian lesion without significant blood flow within it. There is blood flow in the surrounding ovarian tissue. No significant pelvic free fluid. IMPRESSION: Calcified uterine fibroid. Normal endometrium. 2 cm left ovarian solid appearing lesion. Uncertain if this is a hemorrhagic cyst or an actual solid neoplasm. Suggest short-term ultrasound in 6-12 weeks to document persistence or resolution. Interpreted by: Bk Christianson MD Preliminary Report By: Bk Christianson MD Electronically signed By Bk Christianson MD Dictated Date: 06/22/2023 4:49:13 PM Prelim Date: 06/22/2023 4:51:24 PM Sign Date: 06/22/2023 4:51:24 PM Ordering Provider: GERRI TREJO [facility] ([place]) Basophil percentageOrdered B y: Delmer Cole on 05-28-2023 Basophil percentage < 0.2 AI 0.0-0.9 [facility] Serum nuclear antibody titer by immunofluorescenceOrdered By: Delmer Cole on 05-28-2023 Nuclear Ab IF (S) [Titer] Negative . [facility] Comment on above: Negative <1:80 Borde rline 1:80 Positive >1:80ICAP nomenclature: AC-0For more information about Hep-2 cell patterns useANApatterns.org, the official website for theInternational Consensus on Antinuclear Antibody (ZAK)Patterns (ICAP).Performed at: - [facility] [id number] Director: Kirby Dai PhD, Phone: [phone] Serum rheumatoid factor dete ctionOrdered By: Delmer Cole on 05-28-2023 Rheumatoid factor Ql (S) < 10.0 IU/mL <15 [facility] Laboratory - Chemistry and C hemistry - challengeOrdered By: Alia Huerta on 05-12-2023 Free T4 [Mass/Vol] 0.91 ng/dL 0.76-1.46 [facility] No Panel InformationOrdered By: Alia Huerta on 05-12-2023 Free Triiodothyronine (T3) pg/dL 2.5 pg/mL 2.18-3.98 [facility] Thyroid Stimulating Hormone (TSH) 3.35 uIU/mL 0.358-3.74 [facility] Thyroid stimulating immunogl obulins detectionOrdered By: Alia Huerta on 05-12-2023 Thyroid stimulating immunoglobulins Ql (S) <0.10 IU/L 0.00-0.55 [facility] Comment on above: Performed at: [facility] [address] [id number] Director: Anila Quesada MD, Phone: [phone] Basophil percentageOrdered B y: Alia Huerta on 05-09-2023 Basophil percentage 3.4 mg/dL 2.5-4.9 [facility] Chloride [Moles/Vol] 106 mmol/L 98-107 [facility] Glucose [Mass/Vol] 85 mg/dL 74-106 [facility] Potassium [Moles/Vol] 3.4 mmol/L 3.5-5.1 [facility] Sodium [Moles/Vol] 139 mmol/L 136-145 [facility] Erythrocyte sedimentation ra teOrdered By: Alia Huerta on 05-09-2023 ESR (Bld) [Velocity] 1 mm/h 0-30 [facility] Laboratory - Chemistry and C hemistry - challengeOrdered By: Alia Huerta on 05-09-2023 CO2 [Moles/Vol] 28.0 mmol/L 21.0-32.0 [facility] Magnesium [Mass/Vol] 2.4 mg/dL 1.6-2.6 [facility] Urea nitrogen/Creatinine [Mass ratio] 23.6 mg/mg 10-20 [facility] No Panel InformationOrdered By: Alia Huerta on 05-09-2023 Estimated GFR (MDRD) Amer 127 mL/min >60 [facility] Comment on above: GFR Calc Estimated GFR (MDRD) Non-Af Amer 105 mL/min >60 [facility] Comment on above: Non- GFR Calc Thyroid Stimulating Hormone (TSH) 4.83 uIU/mL 0.358-3.74 [facility] Serum or plasma C reactive p rotein measurement (mass/volume)Ordered By: Alia Huerta on 05-09-2023 CRP [Mass/Vol] mg/L 0.0-3.0 [facility] Comment on above: C-Reactive Protein ( CRP) provides useful information for thediagnosis, therapy and monitoring of inflammatory processesand associated diseases. For the evaluation of Relative Riskfor Cardiovascular Disease, a High Sensitivity CRP (HSCRP)should be ordered. Serum or plasma calcium sierra urement (mass/volume)Ordered By: Alia Huerta on 05-09-2023 Calcium [Mass/Vol] 8.9 mg/dL 8.5-10.1 [facility] Serum or plasma creatinine m easurement (mass/volume)Ordered By: Alia Huerta on 05-09-2023 Creatinine [Mass/Vol] 0.68 mg/dL 0.55-1.02 [facility] Comment on above: The validity of the calculated GFR & GFRAA in patients over 70 years has not been determined. Clinical correlation is essential. Serum or plasma urea nitroge n measurement (mass/volume)Ordered By: Alia Huerta on 05-09-2023 Urea nitrogen [Mass/Vol] 16 mg/dL 7-18 [facility] Serum rheumatoid factor dete ctionOrdered By: Alia Huerta on 05-09-2023 Rheumatoid factor Ql (S) < 10.0 IU/mL <15 [facility] Thin prep Papanicolaou smear with manual screeningOrdered By: Alia Huerta on 05-09-2023 Thin prep Papanicolaou smear with manual screening 5 5-15 [facility] Serum or plasma cortisol karrie surement (mass/volume)Ordered By: Alia Huerta on 02-24-2023 Cortisol [Mass/Vol] 17.10 ug/dL 3.44-22.45 [facility] Comment on above: Adult (AM) 5.27 - 22 .45 ug/dL Adult (PM) 3.44 - 16.76 ug/dLPlease note revised CORTISOL reference range effective 2020. Absolute lymphocyte countOrd ered By: Dr. Hirsch on 02-23-2023 Lymphocytes Auto (Unsp spec) [#/Vol] 1.16 10*3/uL 0.83-4.51 [facility] Basophil percentageOrdered B y: Dr. Hirsch on 02-23-2023 Basophils/100 WBC (Bld) 0.4 % 0-1 [facility] Bilirubin [Mass/Vol] 0.30 mg/dL 0.20-1.00 [facility] Comment on above: For patients on eltr ombopag therapy, use of Dimension [place] TBIL is not recommended. Chloride [Moles/Vol] 105 mmol/L 98-107 [facility] Eosinophils/100 WBC (Bld) 0.4 % 0-5 [facility] Glucose [Mass/Vol] 106 mg/dL 74-106 [facility] Comment on above: Fasting Glucose resu lt from 100 to 125 mg/dL suggests IMPAIRED HOMEOSTASIS per A.D.A. criteria. Neutrophils (Bld) [#/Vol] 3.1 10*3/uL 2.0-7.7 [facility] Neutrophils/100 WBC (Bld) 66.3 % 47-70 [facility] Potassium [Moles/Vol] 3.3 mmol/L 3.5-5.1 [facility] Protein [Mass/Vol] 7.6 g/dL 6.4-8.2 [facility] Sodium [Moles/Vol] 138 mmol/L 136-145 [facility] WBC (Bld) [#/Vol] 4.7 10*3/uL 4.4-11.0 [facility] Beta hCG serum qualOrdered B y: Dr. Hirsch on 02-23-2023 Beta HCG ( test) Ql Negative [facility] Blood erythrocytes count (nu mber/volume)Ordered By: Dr. Hirsch on 02-23-2023 RBC (Bld) [#/Vol] 4.62 10*6/uL 4.2-5.4 [facility] Blood hemoglobin measurement (mass/volume)Ordered By: Dr. Hirsch on 02-23-2023 Hemoglobin (Bld) [Mass/Vol] 13.7 g/dL 12.0-15. 0 [facility] Blood lymphocytes/100 leukoc ytesOrdered By: Dr. Hirsch on 02-23-2023 Lymphocytes/100 WBC (Bld) 24.6 % 19-41 [facility] Blood monocytes/100 leukocyt esOrdered By: Dr. Hirsch on 02-23-2023 Monocytes/100 WBC (Bld) 8.1 % 0-10 [facility] Blood platelet mean volumeOr dered By: Dr. Hirsch on 02-23-2023 Platelet mean volume (Bld) [Entitic vol] 9.8 fL 6.2-12.0 [facility] Determination of erythrocyte mean corpuscular volume (MCV)Ordered By: Dr. Hirsch on 02-23-2023 MCV (RBC) [Entitic vol] 85.3 fL 81-99 [facility] Hematocrit Auto (Bld) [Volum e fraction]Ordered By: Dr. Hirsch on 02-23-2023 Hematocrit (Bld) [Volume fraction] 39.4 % 37-47 [facility] Laboratory - Chemistry and C hemistry - challengeOrdered By: Dr. Hirsch on 02-23-2023 ALP [Catalytic activity/Vol] 56 U/L 45-117 [facility] ALT [Catalytic activity/Vol] 20 U/L 13-56 [facility] CO2 [Moles/Vol] 24.0 mmol/L 21.0-32.0 [facility] Globulin (S) [Mass/Vol] 3.4 g/dL 2.2-4.2 [facility] Urea nitrogen/Creatinine [Mass ratio] 24.0 mg/mg 10-20 [facility] Laboratory - Hematology and Cell countsOrdered By: Dr. Hirsch on 02-23-2023 Erythrocyte distribution width (RBC) [Entitic vol] 36.8 fL 35.1-43.9 [facility] Erythrocyte distribution width (RBC) [Ratio] 11.9 % 11.6-14.6 [facility] Immature granulocytes/100 WBC (Bld) 0.200 % 0.0-0.9 [facility] Comment on above: IG% - Immature Granu locytes (promyelocytes, myelocytes and metamyelocytes) > 1% indicates that a LEFT SHIFT is Present. MCH (RBC) [Entitic mass] 29.7 pg 27.0-32.0 [facility] Nucleated RBC/100 WBC (Bld) [Ratio] 0 % 0-5 [facility] MCHC Auto (RBC) [Mass/Vol]Or dered By: Dr. Hirsch on 02-23-2023 MCHC (RBC) [Mass/Vol] 34.8 g/dL 32-36 [facility] No Panel InformationOrdered By: Dr. Hirsch on 02-23-2023 Estimated Creatinine Clearance Calc 87.14 ml/min [facility] Estimated GFR (MDRD) Amer 121 mL/min >60 [facility] Comment on above: GFR Calc Estimated GFR (MDRD) Non-Af Amer 100 mL/min >60 [facility] Comment on above: Non- GFR Calc Thyroid Stimulating Hormone (TSH) 3.84 uIU/mL 0.358-3.74 [facility] Platelets bldOrdered By: Dr. Hirsch on 02-23-2023 Platelets (Bld) [#/Vol] 281 10*3/uL 150-450 [facility] Serum or plasma albumin sierra urement (mass/volume)Ordered By: Dr. Hirsch on 02-23-2023 Albumin [Mass/Vol] 4.2 g/dL 3.2-5.0 [facility] Serum or plasma albumin/glob ulin mass ratioOrdered By: Dr. Hirsch on 02-23-2023 Albumin/Globulin [Mass ratio] 1.2 {ratio} 0.9-2.4 [facility] Serum or plasma calcium sierra urement (mass/volume)Ordered By: Dr. Hirsch on 02-23-2023 Calcium [Mass/Vol] 9.2 mg/dL 8.5-10.1 [facility] Serum or plasma creatinine m easurement (mass/volume)Ordered By: Dr. Hirsch on 02-23-2023 Creatinine [Mass/Vol] 0.71 mg/dL 0.55-1.02 [facility] Comment on above: The validity of the calculated GFR & GFRAA in patients over 70 years has not been determined. Clinical correlation is essential. Serum or plasma urea nitroge n measurement (mass/volume)Ordered By: Dr. Hirsch on 02-23-2023 Urea nitrogen [Mass/Vol] 17 mg/dL 7-18 [facility] Thin prep Papanicolaou smear with manual screeningOrdered By: Dr. Hirsch on 02-23-2023 Thin prep Papanicolaou smear with manual screening 16 U/L 15-37 [facility] Thin prep Papanicolaou smear with manual screening 9 5-15 [facility] Absolute lymphocyte countOrd ered By: Alia Huerta on 02-22-2023 Lymphocytes Auto (Unsp spec) [#/Vol] 1.39 10*3/uL 0.83-4.51 [facility] Basophil percentageOrdered B y: Alia Huerta on 02-22-2023 Basophil percentage Not Reportable [facility] Basophils/100 WBC (Bld) 0.6 % 0-1 [facility] Eosinophils/100 WBC (Bld) 0.6 % 0-5 [facility] Neutrophils (Bld) [#/Vol] 4.6 10*3/uL 2.0-7.7 [facility] Neutrophils/100 WBC (Bld) 71.2 % 47-70 [facility] WBC (Bld) [#/Vol] 6.5 10*3/uL 4.4-11.0 [facility] Blood erythrocytes count (nu mber/volume)Ordered By: Alia Huerta on 02-22-2023 RBC (Bld) [#/Vol] 4.57 10*6/uL 4.2-5.4 [facility] Blood hemoglobin measurement (mass/volume)Ordered By: Aila Huerta on 02-22-2023 Hemoglobin (Bld) [Mass/Vol] 13.3 g/dL 12.0-15. 0 [facility] Blood lymphocytes/100 leukoc ytesOrdered By: Alia Huerta on 02-22-2023 Lymphocytes/100 WBC (Bld) 21.3 % 19-41 [facility] Blood monocytes/100 leukocyt esOrdered By: Alia Huerta on 02-22-2023 Monocytes/100 WBC (Bld) 6.0 % 0-10 [facility] Blood platelet mean volumeOr dered By: Alia Huerta on 02-22-2023 Platelet mean volume (Bld) [Entitic vol] 11.0 fL 6.2-12.0 [facility] Determination of erythrocyte mean corpuscular volume (MCV)Ordered By: Alia Huerta on 02-22-2023 MCV (RBC) [Entitic vol] 86.2 fL 81-99 [facility] Hematocrit Auto (Bld) [Volum e fraction]Ordered By: Alia Huerta on 02-22-2023 Hematocrit (Bld) [Volume fraction] 39.4 % 37-47 [facility] Laboratory - Chemistry and C hemistry - challengeOrdered By: Alia Huerta on 02-22-2023 Cobalamin (Vitamin B12) [Mass/Vol] 845 pg/mL 211-911 [facility] Free T4 [Mass/Vol] 0.92 ng/dL 0.76-1.46 [facility] Laboratory - Hematology and Cell countsOrdered By: Alia Huerta on 02-22-2023 Erythrocyte distribution width (RBC) [Entitic vol] 37.5 fL 35.1-43.9 [facility] Erythrocyte distribution width (RBC) [Ratio] 11.9 % 11.6-14.6 [facility] Immature granulocytes/100 WBC (Bld) 0.300 % 0.0-0.9 [facility] Comment on above: IG% - Immature Granu locytes (promyelocytes, myelocytes and metamyelocytes) > 1% indicates that a LEFT SHIFT is Present. MCH (RBC) [Entitic mass] 29.1 pg 27.0-32.0 [facility] Nucleated RBC/100 WBC (Bld) [Ratio] 0 % 0-5 [facility] MCHC Auto (RBC) [Mass/Vol]Or dered By: Alia Huerta on 02-22-2023 MCHC (RBC) [Mass/Vol] 33.8 g/dL 32-36 [facility] No Panel InformationOrdered By: Alia Huerta on 02-22-2023 Anti-Nuclear Antibody Screen Negative Negative [facility] Comment on above: Performed at: [address] [id number] Director: Anila Quesada MD, Phone: [phone] at: CB - [facility] [id number] [place], [place] [id number] Director: Kirby Dai PhD, Phone: [phone] [employer] B Antibody Not Reportable [facility] Dehydroepiandrosterone Sulfate 153.0 ug/dL 84.8-378.0 [facility] Free Triiodothyronine (T3) pg/dL 2.4 pg/mL 2.18-3.98 [facility] [employer]FTING [employer]ACH[employer]PERATOR Antibody Not Reportable [facility] Thyroglobulin Antibody < 1.0 IU/mL 0.0-0.9 [facility] Comment on above: Thyroglobulin Antibo dy measured by [employer] Thyroglobulin Level 15.5 ng/mL 1.5-38.5 [facility] Comment on above: According to the [facility] Academy of Clinical Biochemistry,the reference interval for Thyroglobulin (TG) should berelated to euthyroid patients and not for patients whounderwent thyroidectomy. TG reference intervals for thesepatients depend on the residual mass of the thyroid tissueleft after surgery. Establishing a post-operative baselineis recommended. The assay limit of quantitation is 0.1ng/mLThyroglobulin measured by [employer] Thyroid Stimulating Hormone (TSH) 2.76 uIU/mL 0.358-3.74 [facility] Platelets bldOrdered By: Angel Huerta on 02-22-2023 Platelets (Bld) [#/Vol] 267 10*3/uL 150-450 [facility] Serum DNA double strand anti body assay (units/volume)Ordered By: Alia Huerta on 02-22-2023 DNA double strand Ab Qn (S) Not Reportable [facility] Serum Eun-1 antibody assay (u nits/volume)Ordered By: Alia Huerta on 02-22-2023 Eun-1 extractable nuclear Ab Qn (S) Not Reportable [facility] Serum Scl-70 extractable nuc lear antibody assay (units/volume)Ordered By: Alia Huerta on 02-22-2023 SCL-70 extractable nuclear Ab Qn (S) Not Reportable [facility] Serum Merlos extractable nucl ear antibody detectionOrdered By: Alia Huerta on 02-22-2023 Merlos extractable nuclear Ab Ql (S) Not Reportable [facility] Serum or plasma calcitriol m easurement (mass/volume)Ordered By: Alia Huerta on 02-22-2023 1,25-dihydroxyvitamin D3 [Mass/Vol] 45.6 pg/mL 24.8-81.5 [facility] Serum or plasma ferritin karrie surement (mass/volume)Ordered By: Alia Huerta on 02-22-2023 Ferritin [Mass/Vol] 26 ng/mL 8-252 [facility] Serum or plasma thyroperoxid ase antibody assay (units/volume)Ordered By: Alia Huerta on 02-22-2023 TPO Ab Qn [IU]/mL 0-34 [facility] Comment on above: Performed at: [place] [id number] Director: Kirby Dai PhD, Phone: [phone] Absolute lymphocyte countOrd ered By: Dr. Carnes on 01-25-2023 Lymphocytes Auto (Unsp spec) [#/Vol] 1.21 10*3/uL 0.83-4.51 [facility] Basophil percentageOrdered B y: Dr. Carnes on 01-25-2023 Basophils/100 WBC (Bld) 0.3 % 0-1 [facility] Bilirubin [Mass/Vol] 0.40 mg/dL 0.20-1.00 [facility] Comment on above: For patients on eltr ombopag therapy, use of Dimension [place] TBIL is not recommended. Chloride [Moles/Vol] 106 mmol/L 98-107 [facility] Eosinophils/100 WBC (Bld) 0.8 % 0-5 [facility] Glucose [Mass/Vol] 95 mg/dL 74-106 [facility] Neutrophils (Bld) [#/Vol] 2.3 10*3/uL 2.0-7.7 [facility] Neutrophils/100 WBC (Bld) 58.6 % 47-70 [facility] Potassium [Moles/Vol] 3.4 mmol/L 3.5-5.1 [facility] Protein [Mass/Vol] 7.3 g/dL 6.4-8.2 [facility] Sodium [Moles/Vol] 140 mmol/L 136-145 [facility] WBC (Bld) [#/Vol] 3.9 10*3/uL 4.4-11.0 [facility] Blood erythrocytes count (nu mber/volume)Ordered By: Dr. Carnes on 01-25-2023 RBC (Bld) [#/Vol] 4.61 10*6/uL 4.2-5.4 [facility] Blood hemoglobin measurement (mass/volume)Ordered By: Dr. Carnes on 01-25-2023 Hemoglobin (Bld) [Mass/Vol] 13.4 g/dL 12.0-15. 0 [facility] Blood lymphocytes/100 leukoc ytesOrdered By: Dr. Carnes on 01-25-2023 Lymphocytes/100 WBC (Bld) 31.0 % 19-41 [facility] Blood monocytes/100 leukocyt esOrdered By: Dr. Carnes on 01-25-2023 Monocytes/100 WBC (Bld) 9.0 % 0-10 [facility] Blood platelet mean volumeOr dered By: Dr. Carnes on 01-25-2023 Platelet mean volume (Bld) [Entitic vol] 10.5 fL 6.2-12.0 [facility] Determination of erythrocyte mean corpuscular volume (MCV)Ordered By: Dr. Carnes on 01-25-2023 MCV (RBC) [Entitic vol] 86.6 fL 81-99 [facility] Erythrocyte sedimentation ra teOrdered By: Dr. Carnes on 01-25-2023 ESR (Bld) [Velocity] 3 mm/h 0-30 [facility] Hematocrit Auto (Bld) [Volum e fraction]Ordered By: Dr. Carnes on 01-25-2023 Hematocrit (Bld) [Volume fraction] 39.9 % 37-47 [facility] Laboratory - Chemistry and C hemistry - challengeOrdered By: Dr. Carnes on 01-25-2023 ALP [Catalytic activity/Vol] 53 U/L 45-117 [facility] ALT [Catalytic activity/Vol] 18 U/L 13-56 [facility] CO2 [Moles/Vol] 26.0 mmol/L 21.0-32.0 [facility] Globulin (S) [Mass/Vol] 3.4 g/dL 2.2-4.2 [facility] Urea nitrogen/Creatinine [Mass ratio] 22.8 mg/mg 10-20 [facility] - Hematology and Cell countsOrdered By: Dr. Carnes on 01-25-2023 Erythrocyte distribution width (RBC) [Entitic vol] 37.6 fL 35.1-43.9 [facility] Erythrocyte distribution width (RBC) [Ratio] 11.9 % 11.6-14.6 [facility] Immature granulocytes/100 WBC (Bld) 0.300 % 0.0-0.9 [facility] Comment on above: IG% - Immature Granu locytes (promyelocytes, myelocytes and metamyelocytes) > 1% indicates that a LEFT SHIFT is Present. MCH (RBC) [Entitic mass] 29.1 pg 27.0-32.0 [facility] Nucleated RBC/100 WBC (Bld) [Ratio] 0 % 0-5 [facility] MCHC Auto (RBC) [Mass/Vol]Or dered By: Dr. Carnes on 01-25-2023 MCHC (RBC) [Mass/Vol] 33.6 g/dL 32-36 [facility] No Panel InformationOrdered By: Dr. Carnes on 01-25-2023 Estimated GFR (MDRD) Amer 107 mL/min >60 [facility] Comment on above: GFR Calc Estimated GFR (MDRD) Non-Af Amer 88 mL/min >60 [facility] Comment on above: Non- GFR Calc Thyroid Stimulating Hormone (TSH) 3.14 uIU/mL 0.358-3.74 [facility] Platelets bldOrdered By: Dr. Carnes on 01-25-2023 Platelets (Bld) [#/Vol] 311 10*3/uL 150-450 [facility] Serum heterophile antibody d etectionOrdered By: Dr. Carnes on 01-25-2023 Heterophile Ab Ql (S) Negative Negative [facility] Serum or plasma albumin sierra urement (mass/volume)Ordered By: Dr. Carnes on 01-25-2023 Albumin [Mass/Vol] 3.9 g/dL 3.2-5.0 [facility] Serum or plasma albumin/glob ulin mass ratioOrdered By: Dr. Carnes on 01-25-2023 Albumin/Globulin [Mass ratio] 1.1 {ratio} 0.9-2.4 [facility] Serum or plasma calcium sierra urement (mass/volume)Ordered By: Dr. Carnes on 01-25-2023 Calcium [Mass/Vol] 9.4 mg/dL 8.5-10.1 [facility] Serum or plasma creatinine m easurement (mass/volume)Ordered By: Dr. Carnes on 01-25-2023 Creatinine [Mass/Vol] 0.79 mg/dL 0.55-1.02 [facility] Comment on above: The validity of the calculated GFR & GFRAA in patients over 70 years has not been determined. Clinical correlation is essential. Serum or plasma urea nitroge n measurement (mass/volume)Ordered By: Dr. Carnes on 01-25-2023 Urea nitrogen [Mass/Vol] 18 mg/dL 7-18 [facility] Thin prep Papanicolaou smear with manual screeningOrdered By: Dr. Carnes on 01-25-2023 Thin prep Papanicolaou smear with manual screening 17 U/L 15-37 [facility] Thin prep Papanicolaou smear with manual screening 8 5-15 [facility] Serum or plasma choriogonado tropin detectionon 07-26-2022 HCG ( test) Ql < 1 mIU/mL <4 [facility] Work Phone: Comment on above: hCG levels with Gest ational AgeGestational Age hCG mIU/mL (IU/L)0.2 - 1 week 5 - 501-2 weeks 50 - 5002-3 weeks 100 - 03247-5 weeks 500 - 533876-4 weeks 1000 - 107295-5 weeks 52187 - 100,0006-8 weeks 98582 - 200,0002-3 months 69143 - 100,000 Serum or plasma progesterone measurement (mass/volume)on 07-26-2022 Progesterone [Mass/Vol] 13.92 ng/mL See Comment [facility] Work Phone: Comment on above: Progesterone Referen ce Table: UNITS Female: Follicular 0.15 - 1.40 ng/mL Luteal 3.34 - 25.56 ng/mL Mid-luteal 4.44 - 28.03 ng/mL Postmenopausal 0.0 - 0.73 ng/mL : 1st Trimester 11.22 - 90.00 ng/mL 2nd Trimester 25.55 - 89.40 ng/mL 3rd Trimester 48.40 -422.50 ng/mL PELVIC US WHIon 07-08-2022 [facility] Serum or plasma choriogonado tropin detectionon 07-02-2022 HCG ( test) Ql 2 mIU/mL <4 [facility] Work Phone: Comment on above: hCG levels with Gest ational AgeGestational Age hCG mIU/mL (IU/L)0.2 - 1 week 5 - 501-2 weeks 50 - 5002-3 weeks 100 - 67498-9 weeks 500 - 104339-6 weeks 1000 - 727733-7 weeks 90109 - 100,0006-8 weeks 10159 - 200,0002-3 months 71988 - 100,000 Serum or plasma choriogonado tropin detectionon 06-17-2022 HCG ( test) Ql 3 mIU/mL <4 [facility] Work Phone: Comment on above: hCG levels with Gest ational AgeGestational Age hCG mIU/mL (IU/L)0.2 - 1 week 5 - 501-2 weeks 50 - 5002-3 weeks 100 - 26776-6 weeks 500 - 862342-8 weeks 1000 - 964030-2 weeks 20590 - 100,0006-8 weeks 33130 - 200,0002-3 months 79284 - 100,000 Serum or plasma choriogonado tropin detectionon 06-04-2022 HCG ( test) Ql 4 mIU/mL <4 [facility] Work Phone: Comment on above: hCG levels with Gest ational AgeGestational Age hCG mIU/mL (IU/L)0.2 - 1 week 5 - 501-2 weeks 50 - 5002-3 weeks 100 - 31811-1 weeks 500 - 400251-8 weeks 1000 - 467395-9 weeks 17138 - 100,0006-8 weeks 98860 - 200,0002-3 months 04523 - 100,000 Serum or plasma choriogonado tropin detectionon 05-28-2022 HCG ( test) Ql 5 mIU/mL <4 [facility] Work Phone: Serum or plasma choriogonado tropin detectionon 05-20-2022 HCG ( test) Ql 7 mIU/mL <4 [facility] Work Phone: Serum or plasma choriogonado tropin detectionon 05-13-2022 HCG ( test) Ql 9 mIU/mL <4 [facility] Work Phone: Serum or plasma choriogonado tropin detectionon 05-06-2022 HCG ( test) Ql 12 mIU/mL <4 [facility] Work Phone: Comment on above: hCG levels with Gest ational AgeGestational Age hCG mIU/mL (IU/L)0.2 - 1 week 5 - 501-2 weeks 50 - 5002-3 weeks 100 - 35863-4 weeks 500 - 622982-9 weeks 1000 - 945413-6 weeks 41589 - 100,0006-8 weeks 70072 - 200,0002-3 months 31757 - 100,000 HCG QUAL UR B/Oon 05-05-2022 status Negative neg - pos Maribell [facility] Quality Check Yes [facility] Serum or plasma choriogonado tropin detectionon 04-29-2022 HCG ( test) Ql 17 mIU/mL <4 [facility] Work Phone: Comment on above: hCG levels with Gest ational AgeGestational Age hCG mIU/mL (IU/L)0.2 - 1 week 5 - 501-2 weeks 50 - 5002-3 weeks 100 - 75424-8 weeks 500 - 577536-0 weeks 1000 - 036601-1 weeks 62900 - 100,0006-8 weeks 31296 - 200,0002-3 months 16357 - 100,000 Serum or plasma choriogonado tropin detectionon 04-22-2022 HCG ( test) Ql 27 mIU/mL <4 [facility] Work Phone: Comment on above: hCG levels with Gest ational AgeGestational Age hCG mIU/mL (IU/L)0.2 - 1 week 5 - 501-2 weeks 50 - 5002-3 weeks 100 - 86590-6 weeks 500 - 156335-0 weeks 1000 - 815652-9 weeks 63623 - 100,0006-8 weeks 47129 - 200,0002-3 months 39837 - 100,000 Serum or plasma choriogonado tropin detectionon 04-15-2022 HCG ( test) Ql 49 mIU/mL <4 [facility] Work Phone: Comment on above: hCG levels with Gest ational AgeGestational Age hCG mIU/mL (IU/L)0.2 - 1 week 5 - 501-2 weeks 50 - 5002-3 weeks 100 - 02197-4 weeks 500 - 852914-9 weeks 1000 - 153957-6 weeks 34393 - 100,0006-8 weeks 50331 - 200,0002-3 months 72222 - 100,000 Serum or plasma choriogonado tropin detectionon 04-08-2022 HCG ( test) Ql 79 mIU/mL <4 [facility] Work Phone: Comment on above: hCG levels with Gest ational AgeGestational Age hCG mIU/mL (IU/L)0.2 - 1 week 5 - 501-2 weeks 50 - 5002-3 weeks 100 - 52320-2 weeks 500 - 114042-6 weeks 1000 - 569697-3 weeks 82196 - 100,0006-8 weeks 80430 - 200,0002-3 months 95621 - 100,000 Basophil percentageon 2021 WBC (Bld) [#/Vol] 6.3 10*3/uL 4.4-11.0 [facility] Work Phone: Blood erythrocytes count (nu mber/volume)on 03-19-2022 RBC (Bld) [#/Vol] 4.64 10*6/uL 4.2-5.4 [facility] Work Phone: Blood hemoglobin measurement (mass/volume)on 03-19-2022 Hemoglobin (Bld) [Mass/Vol] 13.5 g/dL 12.0-15. 0 [facility] Work Phone: Blood platelet mean volumeon 03-19-2022 Platelet mean volume (Bld) [Entitic vol] 9.8 fL 6.2-12.0 [facility] Work Phone: Determination of erythrocyte mean corpuscular volume (MCV)on 03-19-2022 MCV (RBC) [Entitic vol] 84.3 fL 81-99 [facility] Work Phone: Hematocrit Auto (Bld) [Volum e fraction]on 03-19-2022 Hematocrit (Bld) [Volume fraction] 39.1 % 37-47 [facility] Work Phone: Laboratory - Hematology and Cell countson 03-19-2022 Erythrocyte distribution width (RBC) [Entitic vol] 38.4 fL 35.1-43.9 [facility] Work Phone: Erythrocyte distribution width (RBC) [Ratio] 12.7 % 11.6-14.6 [facility] Work Phone: MCH (RBC) [Entitic mass] 29.1 pg 27.0-32.0 [facility] Work Phone: MCHC Auto (RBC) [Mass/Vol]on 03-19-2022 MCHC (RBC) [Mass/Vol] 34.5 g/dL 32-36 [facility] Work Phone: Platelets bldon 03-19-2022 Platelets (Bld) [#/Vol] 271 10*3/uL 150-450 [facility] Work Phone: Serum or plasma choriogonado tropin detectionon 03-19-2022 HCG ( [place] [address] mIU/mL <4 [facility] Work Phone: Comment on above: hCG levels with Gest ational AgeGestational Age hCG mIU/mL (IU/L)0.2 - 1 week 5 - 501-2 weeks 50 - 5002-3 weeks 100 - 03565-4 weeks 500 - 408296-1 weeks 1000 - 133420-4 weeks 45882 - 100,0006-8 weeks 54224 - 200,0002-3 months 65388 - 100,000 URINE OB DIP B/Oon 2 Glucose Ql (U) Negative Neg mg/dL [facility] Protein.monoclonal (U) [Mass/Vol] Negative Neg mg/dL [facility] XR UPPER GI W SMALL BOWEL SE Viji 08-22-2018 XR UPPER GI W SMALL BOWEL SERIES * * *Final Report* * *DATE OF EXAM: Aug 22 2018 11:06AM MDX 5381 - XR UPPER GI W SMALL BOWEL SERIES / REASON: multiple diagnoses * * * * Physician Interpretation * * * * BIPHASIC UPPER GI AND SMALL BOWEL SERIES:INDICATION: Epigastric pain Abdominal distension (gaseous)TECHNIQUE: Air contrast upper GI examination and small bowel series was performed following ingestion of gas forming crystals and thin and thick barium.Fluoroscopic Radiation Summary:Plane A, Air Kerma: 23.0 mGyDose Area Product (DAP): 3662.0 mGy*whJ8Qbkder time: 1:08 min:secCOMPARISON: None.FINDINGS: Phlebotomy Technician radiograph of the abdomen demonstrates a normal bowel gas pattern with moderate retained stool. No abnormal soft tissue calcifications are noted. The osseous structures are unremarkable. IUD is noted.The esophagus demonstrates normal motility without evidence of ulceration or stenotic lesion. No hiatus hernia or gastroesophageal reflux is identified.The stomach is distended with gas and coated with barium. No ulceration or mass is identified. Barium freely flows into the duodenal bulb, which demonstrates normal size and shape without ulceration or mass. The duodenal sweep is unremarkable.Normal transit time through the small bowel is noted. The small bowel loops demonstrate normal mucosal folds without dilatation. The terminal ileum is unremarkable.IMPRESS ION: Negative.Transcripti onist: PSCB Transcribe Date/Time: Aug 22 2018 12:51PDictated by : FILIBERTO SRIVASTAVA MDThis examination was interpreted and the report reviewed and electronically signed by: FILIBERTO SRIVASTAVA MD on Aug 22 2018 12:54PM [id number] [facility] Office Visit: UC: URSarkis 07-29 Fall risk assessment No [facility] Work Phone: Protein mass conc Done [facility] Work Phone: Tobacco smoking status NHIS Never smoker [facility] Work Phone: Vital Signs Date Time Vital Sign Value Performing Clinician Facility 07-23-2025 09:01-0400 Body height 157.[address] Irene Powell MD Work Phone: [facility] 07-23-2025 09:01-0400 Body mass index (BMI) [Ratio] 19.9 kg/m2 Dr. Irene Powell MD Work Phone: [facility] 07-23-2025 09:01-0400 Body temperature 97.2 [degF] Dr. Irene Powell MD Work Phone: [facility] 07-23-2025 09:01-0400 Body weight 49.[address] Irene Powell MD Work Phone: [facility] 07-23-2025 09:01-0400 Diastolic blood pressure 60 mm[Hg] Dr. Irene Powell MD Work Phone: [facility] 07-23-2025 09:01-0400 Heart rate 81 /min Dr. Irene Powell MD Work Phone: [facility] 07-23-2025 09:01-0400 Respiratory rate 18 /min Dr. Irene Powell MD Work Phone: [facility] 07-23-2025 09:01-0400 SaO2% (BldA) [Mass fraction] 99 % Dr. Irene Powell MD Work Phone: [facility] 07-23-2025 09:01-0400 Systolic blood pressure 110 mm[Hg] Dr. Irene Powell MD Work Phone: [facility] 06-18-2025 08:56-0400 Body height 160.[address] Zuleima Carnes MD Work Phone: [facility] 06-18-2025 08:56-0400 Body mass index (BMI) [Ratio] 19.5 kg/m2 Dr. Zuleima Carnes MD Work Phone: 9(756)787-092502 [place] [address] 06-18-2025 08:56-0400 Body weight 49.[address] Zuleima Carnes MD Work Phone: 6(898)283-729102 [place] [address] 06-18-2025 08:56-0400 Diastolic blood pressure 57 mm[Hg] Dr. Zuleima Carnes MD Work Phone: 1(451)384-963002 [place] [address] 06-18-2025 08:56-0400 Heart rate 95 /min Dr. Zuleima Carnes MD Work Phone: 8(041)[phone] [address] 06-18-2025 08:56-0400 SaO2% (BldA) [Mass fraction] 99 % Dr. Zuleima Carnes MD Work Phone: 7(057)457-648866 [address] 06-18-2025 08:56-0400 Systolic blood pressure 110 mm[Hg] Dr. Zuleima Carnes MD Work Phone: 0(806)914-777427 [place] [address] 03-19-2025 08:17-0400 Body temperature 98.5 [degF] Dr. Zuleima Carnes MD Work Phone: 9(389)[phone] [place] [address] 03-19-2025 08:17-0400 Diastolic blood pressure 60 mm[Hg] Dr. Zuleima Carnes MD Work Phone: 0(491)[phone] [address] 03-19-2025 08:17-0400 Heart rate 75 /min Dr. Zuleima Carnes MD Work Phone: 1(448)269-663266 [address] 03-19-2025 08:17-0400 SaO2% (BldA) [Mass fraction] 98 % Dr. Zuleima Carnes MD Work Phone: [facility] 03-19-2025 08:17-0400 Systolic blood pressure 104 mm[Hg] Dr. Zuleima Carnes MD Work Phone: 8(985)[phone] [place] [address] 11-24-2024 12:18-0500 Body mass index (BMI) [Ratio] 20.27 kg/m2 Jose Kyle MD Work Phone: [facility] 11-24-2024 12:18-0500 Body temperature 98.71 [degF] Jose Kyle MD Work Phone: [facility] 11-24-2024 12:18-0500 Body weight 51.9 kg Jose Kyle MD Work Phone: [facility] 11-24-2024 12:18-0500 Diastolic blood pressure 75 mm[Hg] Jose Kyle MD Work Phone: [facility] 11-24-2024 12:18-0500 Heart rate 107 /min Jose Kyle MD Work Phone: [facility] 11-24-2024 12:18-0500 Respiratory rate 16 /min Jose Kyle MD Work Phone: [facility] 11-24-2024 12:18-0500 SaO2% (BldA) [Mass fraction] 99 % Jose Kyle MD Work Phone: [facility] 11-24-2024 12:18-0500 Systolic blood pressure 109 mm[Hg] Jose Kyle MD Work Phone: [facility] 10-26-2024 08:18-0500 Body mass index (BMI) [Ratio] 20.93 kg/m2 Nishi Dean APRN.MORNING BABYSITTER Work Phone: [facility] 10-26-2024 08:18-0500 Body temperature 97.81 [degF] Nishi Dean 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.MORNING BABYSITTER Work Phone: [facility] 10-26-2024 08:18-0500 Body weight 53.6 kg Nishi Dean APRN.MORNING BABYSITTER Work Phone: [facility] 10-26-2024 08:18-0500 Diastolic blood pressure 78 mm[Hg] Nishi Dean APRN.MORNING BABYSITTER Work Phone: [facility] 10-26-2024 08:18-0500 Heart rate 116 /min Nishi Dean APRN.MORNING BABYSITTER Work Phone: [facility] 10-26-2024 08:18-0500 Respiratory rate 16 /min Nishi Dean APRN.MORNING BABYSITTER Work Phone: [facility] 10-26-2024 08:18-0500 SaO2% (BldA) [Mass fraction] 97 % Nishi Dean 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.MORNING BABYSITTER Work Phone: [facility] 10-26-2024 08:18-0500 Systolic blood pressure 108 mm[Hg] Nishi Dean APRN.MORNING BABYSITTER Work Phone: [facility] 03-10-2024 16:38-0400 Body temperature 98.06 [degF] GERRI TREJO 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-CNM [facility] 03-10-2024 16:38-0400 Diastolic Blood Pressure Non-Invasive 64 mm[Hg] GERRI TREJO 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-[facility] [facility] 03-10-2024 16:38-0400 Heart rate 80 /min GERRI TREJO 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-[facility] 03-10-2024 16:38-0400 Reason For Taking VItal Signs GERRI TREJO 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-[facility] 03-10-2024 16:38-0400 Respiratory rate 16 /min GERRI TREJO 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-[facility] 03-10-2024 16:38-0400 Systolic Blood Pressure Non-Invasive 96 mm[Hg] GERRI TREJO 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-[facility] 03-10-2024 10:30-0400 Body temperature 98.24 [degF] GERRI TREJO 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-[facility] 03-10-2024 10:30-0400 Diastolic Blood Pressure Non-Invasive 64 mm[Hg] GERRI TREJO 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-[facility] 03-10-2024 10:30-0400 Heart rate 98 /min GERRI TREJO 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-[facility] 03-10-2024 10:30-0400 Respiratory rate 18 /min GERRI TREJO 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-[facility] 03-10-2024 10:30-0400 Systolic Blood Pressure Non-Invasive 98 mm[Hg] GERRI TREJO 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-[facility] 03-09-2024 23:02-0400 Diastolic Blood Pressure Non-Invasive 61 mm[Hg] GERRI TREJO 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-[facility] 03-09-2024 23:02-0400 Heart rate 93 /min GERRI TREJO 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-[facility] 03-09-2024 23:02-0400 Respiratory rate 16 /min GERRI TREJO 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-[facility] 03-09-2024 23:02-0400 Systolic Blood Pressure Non-Invasive 76 mm[Hg] GERRI TREJO 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-[facility] 03-09-2024 21:10-0400 Body temperature 97.7 [degF] GERRI TREJO 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-[facility] 03-09-2024 21:10-0400 Reason For Taking VItal Signs GERRI TREJO 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-[facility] 03-09-2024 19:52-0400 Reason For Taking VItal Signs GERRI TREJO 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-[facility] 03-09-2024 16:02-0400 Body height 157 cm GERRI TREJO 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-[facility] 03-09-2024 16:02-0400 Body weight 60.5 kg GERRI TREJO 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-[facility] 03-09-2024 16:02-0400 Body weight 24.54 kg/m2 GERRI TREJO 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-[facility] 03-09-2024 15:58-0400 Body height 157 cm GERRI TREJO 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-[facility] 03-09-2024 15:58-0400 Body weight 60.5 kg GERRI TREJO 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-[facility] 03-09-2024 15:58-0400 Body weight 24.54 kg/m2 GERRI TREJO 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-[facility] 02-19-2024 10:20-0400 Body height 160 cm GERRI TREJO 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-[facility] 02-19-2024 10:20-0400 Body weight 60.45 kg GERRI TREJO 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-[facility] 02-19-2024 10:20-0400 Body weight 23.61 kg/m2 GERRI TREJO 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-[facility] 02-19-2024 10:00-0400 Blood Pressure Cuff Size GERRI TREJO 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-[facility] 02-19-2024 10:00-0400 Blood Pressure Location GERRI TREJO 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-[facility] 02-19-2024 10:00-0400 Blood Pressure Method GERRI TREJO 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-[facility] 02-19-2024 10:00-0400 Body temperature 98.06 [degF] GERRI TREJO 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-[facility] 02-19-2024 10:00-0400 Diastolic Blood Pressure Non-Invasive 66 mm[Hg] GERRI TREJO 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-[facility] 02-19-2024 10:00-0400 Heart rate 104 /min GERRI TREJO 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-[facility] 02-19-2024 10:00-0400 Reason For Taking VItal Signs GERRI TREJO 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-[facility] 02-19-2024 10:00-0400 Respiratory rate 18 /min GERRI TREJO 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-[facility] 02-19-2024 10:00-0400 Systolic Blood Pressure Non-Invasive 100 mm[Hg] GERRI TREJO 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-[facility] 02-14-2024 09:27-0400 Body temperature 98.01 [degF] Krislyn Aberegg PA Work Phone: [facility] 02-14-2024 09:27-0400 Body weight 61.8 kg Krislyn Aberegg PA Work Phone: [facility] 02-14-2024 09:27-0400 Diastolic blood pressure 64 mm[Hg] Krislyn Aberegg PA Work Phone: [facility] 02-14-2024 09:27-0400 Heart rate 124 /min Krislyn Aberegg PA Work Phone: [facility] 02-14-2024 09:27-0400 Respiratory rate 18 /min Krislyn Aberegg PA Work Phone: [facility] 02-14-2024 09:27-0400 SaO2% (BldA) [Mass fraction] 100 % Ilia Fregoso PA Work Phone: [facility] 02-14-2024 09:27-0400 Systolic blood pressure 94 mm[Hg] Ilia Fregoso PA Work Phone: [facility] 05-10-2023 09:25-0400 Body weight 48.63 kg Terra Medrano 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.CNM Work Phone: [facility] 05-10-2023 09:25-0400 Diastolic blood pressure 60 mm[Hg] Terra Medrano 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.CNM Work Phone: [facility] 05-10-2023 09:25-0400 Systolic blood pressure 108 mm[Hg] Terra Medrano 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.CNM Work Phone: [facility] 02-23-2023 13:58-0400 Diastolic blood pressure 70 mm[Hg] [facility] 02-23-2023 13:58-0400 Heart rate 82 /min [facility] 02-23-2023 13:58-0400 Respiratory rate 18 /min [facility] 02-23-2023 13:58-0400 SaO2% (BldA) [Mass fraction] 100 % [facility] 02-23-2023 13:58-0400 Systolic blood pressure 107 mm[Hg] [facility] 02-23-2023 11:50-0400 Body height 160.02 cm [facility] 02-23-2023 11:50-0400 Body mass index (BMI) [Ratio] 19.3 kg/m2 [facility] 02-23-2023 11:50-0400 Body temperature 96.6 [degF] [facility] 02-23-2023 11:50-0400 Body weight 49.44 kg [facility] 10-08-2022 09:07-0500 Body height 160 cm Loree Dasilva MD Work Phone: [facility] 10-08-2022 09:07-0500 Body weight 47.45 kg Loree Dasilva MD Work Phone: [facility] 10-08-2022 09:07-0500 Diastolic blood pressure 62 mm[Hg] Loree Dasilva MD Work Phone: [facility] 10-08-2022 09:07-0500 Systolic blood pressure 92 mm[Hg] Loree Dasilva MD Work Phone: [facility] 05-05-2022 13:58-0400 Body weight 48.99 kg Loree Dasivla MD Work Phone: [facility] 05-05-2022 13:58-0400 Diastolic blood pressure 58 mm[Hg] Loree Dasilva MD Work Phone: [facility] 05-05-2022 13:58-0400 Systolic blood pressure 102 mm[Hg] Loree Dasilva MD Work Phone: [facility] 03-31-2022 10:21-0400 Diastolic blood pressure 62 mm[Hg] Loree Dasilva MD Work Phone: [facility] 03-31-2022 10:21-0400 Systolic blood pressure 100 mm[Hg] Loree Dasilva MD Work Phone: [facility] 03-19-2022 09:42-0400 Body temperature 99.2 [degF] [facility] Work Phone: 03-19-2022 09:42-0400 Diastolic blood pressure 75 mm[Hg] [facility] Work Phone: 03-19-2022 09:42-0400 Heart rate 64 /min [facility] Work Phone: 03-19-2022 09:42-0400 Respiratory rate 16 /min [facility] Work Phone: 03-19-2022 09:42-0400 SaO2% (BldA) [Mass fraction] 99 % [facility] Work Phone: 03-19-2022 09:42-0400 Systolic blood pressure 107 mm[Hg] [facility] Work Phone: 03-19-2022 07:11-0400 Body height 160.02 cm [facility] Work Phone: 03-19-2022 [id number] Body mass index (BMI) [Ratio] 19.1 kg/m2 [facility] Work Phone: 03-19-2022 [id number] Body weight 49 kg [facility] Work Phone: 03-18-2022 10:[id number] Body weight 49.9 kg Loree Dasilva MD Work Phone: [facility] 03-18-2022 10:25-040 Diastolic blood pressure 62 mm[Hg] Loree Dasilva MD Work Phone: [facility] 03-18-2022 10:25-040 Systolic blood pressure 104 mm[Hg] Loree Dasilva MD Work Phone: [facility] 08-12-2017 10:[id number] BMI (Body Mass Index) 17.68 kg/m2 Snehal Salinas LPN [facility] Work Phone: 08-12-2017 10:0400 Body Temperature 98.4 [degF] Snehal Salinas LPN [facility] Work Phone: 08-12-2017 10:19-0400 BP Diastolic 68 mm[Hg] Snehal Salinas LPN [facility] Work Phone: 08-12-2017 10:19-0400 BP Systolic 104 mm[Hg] Snehal Salinas LPN [facility] Work Phone: 08-12-2017 10:19-0400 Height 162.56 cm Snehal Salinas LPN [facility] Work Phone: 08-12-2017 10:19-0400 Pulse (Heart Rate) 111 /min Snehal Salinas LPN [facility] Work Phone: 08-12-2017 10:19-0400 Respiratory Rate 14 /min Snehal Salinas LPN [facility] Work Phone: 08-12-2017 10:19-0400 Weight 46.72 kg Snehal Salinas FILM COLOR TESTER [facility] Work Phone: Encounters Encounter Date Encounter Type Care Provider Facility Start: 07-23-2025 End: 07-23-[address] Irene Powell MD -[facility] Work Phone: Start: 07-23-2025 End: 07-23-[address] Irene Powell MD Work Phone: -[facility] Start: 07-08-2025 End: 07-08-[address] Zuleima Carnes MD Work Phone: -[facility] Start: 07-08-2025 End: 07-08-[address] Donis Dean MD -[facility] Start: 07-08-2025 End: 07-08-2025 ambulatory Irene Malloylay Facility:[facility] Start: 06-18-2025 End: 06-18-[address] Donis Dean MD -[facility] Work Phone: Start: 06-18-2025 End: 06-18-[address] Zuleima Carnes MD Work Phone: -[facility] Start: 06-10-2025 End: 06-10-[address] Zuleima Carnes MD Work Phone: -[facility] Start: 06-10-2025 End: 06-10-[address] Donis Dean MD -[facility] Start: 06-10-2025 End: 06-10-2025 ambulatory Irene [place] Facility:[facility] Start: 05-03-2025 End: 05-03-2025 ambulatory GERRI TREJO APRN-SHAJI Facility:[facility] Start: 05-03-2025 End: 05-03-2025 Patient encounter procedure ALMA GALLARDO DO [facility] Start: 03-19-2025 End: 03-19-2025 Patient encounter procedure Fadi Koo [facility] Work Phone: Start: 03-19-2025 End: 03-19-2025 ambulatory Zuleima Carnes Facility:[facility] Start: 03-11-2025 End: 03-11-[address] Zuleima Carnes MD Work Phone: [facility] Work Phone: Start: 03-11-2025 End: 03-11-[address] Delmer Cole MD -Laboratory Work Phone: Start: 03-11-2025 End: 03-11-2025 ambulatory Zuleima Carnes Facility:[facility] Start: 03-06-2025 End: 03-06-2025 ambulatory GERRI TREJO 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-CNM Facility:[facility] Start: 01-03-2025 End: 01-03-2025 Patient encounter procedure GERRI TREJO VIDEO AND SOUND RECORDER-C -Laboratory Work Phone: Start: 01-03-2025 End: 01-03-2025 ambulatory GERRI TREJO Facility:[facility] Start: 11-24-2024 End: 11-24-2024 ambulatory SELF Facility:[facility] Start: 11-24-2024 End: 11-24-2024 Office outpatient visit 15 minutes Jose Kyle MD Work Phone: [facility] Comment on above: Influenza-like illne ss (Primary Dx) Start: 10-26-2024 End: 10-26-2024 ambulatory ZULEIMA CARNES Facility:[facility] Start: 10-26-2024 End: 10-26-2024 Patient encounter procedure Nishi Dean APRN.MORNING BABYSITTER Work Phone: [facility] Comment on above: Sore throat (Primary Dx) Start: 03-09-2024 End: 03-11-2024 Evaluation and management of inpatient GERRI TREJO 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-CNM Facility:[facility] Start: 03-09-2024 End: 03-10-2024 Evaluation and management of inpatient GERRI TREJO 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-CNM [facility] Start: 02-19-2024 End: 02-19-2024 ambulatory GERRI TREJO 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-CNM Facility:[facility] Start: 02-19-2024 End: 02-19-2024 SAME DAY STAY GERRI TREJO 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-CNM [facility] Start: 02-14-2024 End: 02-14-2024 ambulatory ZULEIMA CARNES Facility:[facility] Start: 02-14-2024 End: 02-14-2024 Patient encounter procedure Ilia BAY Work Phone: [facility] Comment on above: Bacterial sinusitis (Primary Dx) Start: 10-17-2023 End: 10-18-2023 ambulatory GERRI TREJO 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-CNM Facility:[facility] Start: 10-17-2023 End: 10-17-2023 Patient encounter procedure GERRI TREJO 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-CNM [facility] Start: 08-15-2023 End: 08-16-2023 ambulatory GERRI TREJO 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-CNM Facility:[facility] Start: 08-15-2023 End: 08-15-2023 Patient encounter procedure GERRI TREJO 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-CNM [facility] Start: 07-26-2023 End: 07-27-2023 ambulatory GERRI TREJO 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-CNM Facility:[facility] Start: 07-26-2023 End: 07-26-2023 Patient encounter procedure ROBINSON LEMUS 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-CNM [facility] Start: 07-21-2023 End: 07-21-2023 ambulatory [facility] Work Phone: Start: 07-21-2023 End: 07-21-2023 Patient encounter procedure [facility] Start: 07-14-2023 End: 07-15-2023 ambulatory FRANCESPALLAVI Donnell TREJO 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-CNM Facility:[facility] Start: 06-21-2023 End: 06-22-2023 ambulatory GERRI TREJO 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-CNM Facility:[facility] Start: 05-28-2023 End: 05-28-2023 [facility] Start: 05-18-2023 ambulatory Loree li MD Work Phone: OB/Gynecology Comment on above: Semen analysis Start: 05-12-2023 End: 05-12-2023 ambulatory [facility] Work Phone: Start: 05-12-2023 End: 05-12-2023 Patient encounter procedure [facility] Start: 05-10-2023 End: 05-10-2023 Patient encounter procedure Terra Medrano 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.CNM Work Phone: OB/Gynecology Comment on above: Generalized abdomina l cramping (Primary Dx); Patient desires Start: 05-09-2023 End: 05-09-2023 ambulatory [facility] Work Phone: Start: 05-09-2023 End: 05-09-2023 Patient encounter procedure [facility] Start: 04-04-2023 ambulatory Loree li MD Work Phone: OB/Gynecology Comment on above: Medication Start: 03-09-2023 End: 03-09-2023 Patient encounter procedure [facility] Start: 02-24-2023 End: 02-24-2023 ambulatory [facility] Work Phone: Start: 02-24-2023 End: 02-24-2023 Patient encounter procedure [place] Start: 02-23-2023 End: 02-23-2023 Emergency department patient visit [facility]-Emergency Department Start: 02-22-2023 End: 02-22-2023 ambulatory [facility] Work Phone: Start: 02-22-2023 End: 02-22-2023 Patient encounter procedure [facility] Start: 01-25-2023 End: 01-25-2023 ambulatory [facility] Work Phone: Start: 01-25-2023 End: 01-25-2023 Patient encounter procedure [facility] Start: 11-29-2022 ambulatory Loree li MD Work Phone: OB/Gynecology Comment on above: Bleeding Start: 10-14-2022 ambulatory Loree li MD Work Phone: OB/Gynecology Comment on above: Question regarding P AP FLUID CERVICAL SCREENING Start: 10-08-2022 End: 10-08-2022 Patient encounter procedure Loree Dasilva MD Work Phone: OB/Gynecology Comment on above: Encounter for gyneco logical examination without abnormal finding (Primary Dx); Encounter for IUD removal; Encounter for screening for malignant neoplasm of cervix; Special screening examination for human papillomavirus (HPV) Start: 10-08-2022 End: 10-08-2022 Patient encounter status Loree Dasilva MD Work Phone: OB/Gynecology Start: 07-26-2022 End: 07-26-2022 ambulatory [facility] Work Phone: Start: 07-26-2022 End: 07-26-2022 [facility] Start: 07-21-2022 End: 07-21-2022 ambulatory Loree Dasilva MD Work Phone: OB/Gynecology Comment on above: Cystic acne (Primary Dx); Abnormal uterine bleeding Start: 07-21-2022 End: 07-21-2022 Telemedicine consultation with patient Loree Dasilva MD Work Phone: [facility] Start: 07-08-2022 End: 07-08-2022 Patient encounter procedure Karon Loomis MD Work Phone: OB/Gynecology Comment on above: IUD (intrauterine de vice) in place (Primary Dx) Start: 07-08-2022 Telephone encounter Terra dee 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.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 Work Phone: OB/Gynecology Comment on above: Pelvic Pain; Orders Start: 07-02-2022 End: 07-02-2022 Patient encounter procedure [facility] Start: 07-02-2022 ambulatory Loree li MD Work Phone: OB/Gynecology Comment on above: Hcg Start: 06-28-2022 Telephone encounter Loree Dasilva MD Work Phone: OB/Gynecology Comment on above: bleeding after IUD Start: 06-18-2022 Telephone encounter Jeannesara murphy 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.CNM Work Phone: OB/Gynecology Comment on above: Results (HCG Quant) Start: 06-17-2022 End: 06-17-2022 Patient encounter procedure [facility] Start: 06-07-2022 Telephone encounter Loree Dasilva MD Work Phone: OB/Gynecology Comment on above: Results Start: 06-04-2022 End: 06-04-2022 Patient encounter procedure [facility] Start: 05-28-2022 End: 05-28-2022 Patient encounter procedure [facility] Start: 05-21-2022 Telephone encounter Loree Dasilva MD Work Phone: OB/Gynecology Comment on above: Results (quant HCG) Start: 05-20-2022 End: 05-20-2022 Patient encounter procedure [facility] Start: 05-13-2022 End: 05-13-2022 Patient encounter procedure [facility] Start: 05-09-2022 ambulatory Loree li MD Work Phone: OB/Gynecology Comment on above: hcg level Start: 05-09-2022 E-mail encounter fro m caregiver Loree Dasilva MD Work Phone: [facility] Start: 05-06-2022 End: 05-06-2022 Patient encounter procedure [facility] Start: 05-05-2022 ambulatory Loree li MD Work Phone: OB/Gynecology Comment on above: Bleeding Start: 05-05-2022 End: 05-05-2022 Patient encounter procedure Loree Dasilva MD Work Phone: OB/Gynecology Comment on above: Encounter for IUD in sertion (Primary Dx) Start: 05-03-2022 Telephone encounter Loree Dasilva MD Work Phone: OB/Gynecology Comment on above: Results Start: 04-29-2022 End: 04-29-2022 Patient encounter procedure [facility] Start: 04-23-2022 Telephone encounter Marine Ahuja MD Work Phone: OB/Gynecology Comment on above: HCG Quant Result Start: 04-22-2022 End: 04-22-2022 Patient encounter procedure [facility] Start: 04-19-2022 Telephone encounter Loree Dasilva MD Work Phone: OB/Gynecology Comment on above: Orders Start: 04-15-2022 Telephone encounter Karon wang MD Work Phone: OB/Gynecology Comment on above: HCG QUANT Results Start: 04-15-2022 End: 04-15-2022 Patient encounter procedure [facility] Start: 04-08-2022 End: 04-08-2022 Patient encounter procedure [facility] Start: 03-31-2022 End: 03-31-2022 Patient encounter procedure Loree Dasilva MD Work Phone: OB/Gynecology Comment on above: Partial molar pregna ncy (Primary Dx) Start: 03-29-2022 ambulatory Loree li MD Work Phone: OB/Gynecology Comment on above: Test results Start: 03-19-2022 End: 03-19-2022 Admission to same day surgery center [facility] Start: 03-18-2022 End: 03-18-2022 Patient encounter procedure Loree Dasilva MD Work Phone: OB/Gynecology Comment on above: 17 weeks gestation o f (Primary Dx); Missed Start: 03-01-2022 ambulatory Loree li MD Work Phone: OB/Gynecology Comment on above: Heart rate Start: 10-20-2021 ambulatory [facility] Comment on above: Questionnaire Submis vinayak Start: 10-20-2021 E-mail encounter fro m caregiver [facility] Start: 05-06-2021 E-mail encounter fro m caregiver [facility] Provider [facility] Start: 05-06-2021 Patient encounter procedure [facility] Appointment Center Comment on above: CONSULT TO PHYSICAL THERAPY Start: 03-17-2020 ambulatory Mona boyd MD Work Phone: General Surgery Comment on above: RE: Non-Urgent Medic al Question Start: 03-02-2020 ambulatory Loree li MD Work Phone: OB/Gynecology Comment on above: RE: Non-Urgent Medic al Question Start: 02-29-2020 ambulatory Mona boyd MD Work Phone: General Surgery Comment on above: RE: Non-Urgent Medic al Question Start: 09-19-2019 ambulatory Loree li MD Work Phone: OB/Gynecology Comment on above: RE: Medication Quest ion (Not Renewal) Start: 02-12-2019 ambulatory Loree li MD Work Phone: [facility] Start: 02-12-2019 Patient encounter procedure Loree Dasilva MD Work Phone: OB/Gynecology Comment on above: RE: RE: RE: RE: [facility] [facility] Appointment Question Start: 11-20-2018 ambulatory Bailey Judge APRN.CNP Work Phone: OB/Gynecology Comment on above: RE: RE: Test Result Question Start: 11-19-2018 E-mail encounter ruth m caregiver Karon Loomis MD Work Phone: [facility] Start: 11-19-2018 Patient encounter procedure Karon Loomis MD Work Phone: OB/Gynecology Comment on above: RE: Appointment Can ellation Request Start: 08-22-2018 Patient encounter RAE (VIDEO AND SOUND RECORDER) [facility] Start: 08-17-2018 ambulatory [facility] Medical Re cords Comment on above: RE: RE: Results Start: 08-17-2018 E-mail encounter fro m caregiver [facility] Provider [facility] Procedures Date Procedure Procedure Detail Performing Clinician Start: 03-11-2025 Antibody to lupus La protein measurement Dr. Zuleima Carnes MD Work Phone: Comment on above: Performed at: [place] [id number] Director: Kirby Dai PhD, Phone: [phone] reported result: TNP AIEdited by: FORD on 03/18/25:1308 AMENDED REPORT 03/18/25 1308 Anti-SS-B previously reported as: Test not performed Start: 03-11-2025 Antibody to SS-A measurement Dr. Zuleima Carnes MD Work Phone: Comment on above: Previous reported re sult: TNP AIEdited by: FORD on 03/18/25:1308 AMENDED REPORT 03/18/25 1308 Anti-SS-A previously reported as: Test not performed Start: 10-26-2024 STREP A MOLECULAR (POC) Nishi Dean APRN.MORNING BABYSITTER Work Phone: Start: 03-09-2023 MRI of brain with contrast Start: 07-08-2022 Us pelvic nonobstetr ic real-time image complete Terra Medrano APRN.CNM Work Phone: Start: 05-05-2022 Urine test visual color cmprsn meths Loree Dasilva MD Work Phone: Start: 03-19-2022 End: 03-19-2022 Viral antigen assay Start: 03-19-2022 Dilation and curetta ge of uterus Start: 03-18-2022 URINE OB DIP B/O Jessica Dasilva MD Work Phone: Start: 07-12-2019 Adult depression scr eening assessment Loree Dasilva MD Work Phone: Start: 11-28-2015 Structure of vertebr al artery (body structure) GERRI SAWYER 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-CNM Comment on above: Vertebral artery dis section Start: 11-28-2014 Laser assisted in si tu keratomileusis GERRI SAWYER 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-CNM Craniosynostosis syn drome (disorder) GERRI SAWYER 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-CNM Dilatation and curet tage: routine GERRI SAWYER 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-CNM Viral antigen assay Plan of Treatment Date Care Activity Detail Author Start: 01-19-2034 Urine microalbumin profile DTaP,Tdap,Td Vaccine (3 - Td or Tdap) [facility] Start: 11-02-2029 Urine microalbumin profile DTAP,TDAP,TD (2 - Td or Tdap) [facility] Start: 10-08-2027 HPV TESTING HPV TESTING [facility] Start: 10-08-2027 PAP TESTING PAP TESTING [facility] Start: 10-08-2027 Screening for malignant neoplasm of cervix [facility] Start: 07-29-2024 Covid-19 Vaccine () Covid-19 Vaccine () [facility] Start: 11-28-2023 Depression Assessment Depression Assessment [facility] Start: 10-08-2023 Screening for malignant neoplasm of cervix Cervical Cancer Screening [facility] Start: 09-20-2023 HPV TESTING HPV TESTING [facility] Start: 09-20-2023 PAP TESTING PAP TESTING [facility] Start: 07-29-2023 Covid-19 Vaccine () Covid-19 Vaccine () [facility] Start: 11-28-2022 DEPRESSION ASSESSMENT DEPRESSION ASSESSMENT [facility] Start: 07-29-2022 Influenza vaccination INFLUENZA (#1) [facility] Start: 07-21-2022 End: 09-20-2022 DHEA-S BLD DHEA-S BLD Lab Routine Cystic acne Expected: 07/21/2022, Expires: 09/20/2022 [facility] Work Phone: Comment on above: Expected: 07/21/2022, Expires: 2 Start: 07-21-2022 End: 09-20-2022 Progesterone [Mass/volume] in Serum or Plasma PROGESTERONE BLD Lab Routine Cystic acne Expected: 07/21/2022, Expires: 09/20/2022 [facility] Work Phone: Comment on above: Expected: 07/21/2022, Expires: 2 Start: 07-21-2022 End: 09-20-2022 TESTOSTERONE, FREE AND TOTAL TESTOSTERONE, FREE AND TOTAL Lab Routine Cystic acne Expected: 07/21/2022, Expires: 09/20/2022 [facility] Work Phone: Comment on above: Expected: 07/21/2022, Expires: 2 Start: 06-18-2022 End: 08-18-2022 Choriogonadotropin.beta subunit [Units/volume] in Serum or Plasma HCG QUANTITATIVE Lab Routine Partial molar Expected: 06/18/2022, Expires: 08/18/2022 [facility] Work Phone: Comment on above: Expected: 06/18/2022, Expires: 2 Start: 03-19-2022 Anesthesia incomplete/missed ANESTH INC/MISSED AB PROC [facility] Work Phone: Start: 03-19-2022 Tx missed first trimester surgical CARE OF MISCARRIAGE [facility] Work Phone: Start: 03-19-2022 Ambulation without limitation [facility] Work Phone: Start: 03-19-2022 Medication education [facility] Work Phone: Start: 03-19-2022 Patient discharge [facility] Work Phone: Start: 03-19-2022 Procedure discontinued [facility] Work Phone: Start: 03-19-2022 Taking patient vital signs [facility] Work Phone: Start: 03-19-2022 Vital signs measurements [facility] Work Phone: Start: 03-19-2022 Medical regimen orders management [facility] Work Phone: Start: 03-19-2022 End: 03-19-2022 [facility] Work Phone: Start: 01-21-2022 COVID-19 VACCINE (3 - Booster for Pfizer series) COVID-19 VACCINE (3 - Booster for Pfizer series) [facility] Start: 11-28-2021 DEPRESSION ASSESSMENT DEPRESSION ASSESSMENT [facility] Start: 10-16-2021 COVID-19 VACCINE (3 - Booster for Pfizer series) COVID-19 VACCINE (3 - Booster for Pfizer series) [facility] Start: 07-12-2020 Adult depression screening assessment DEPRESSION SCREENING [facility] Start: 2007 Hepatitis B Vaccine (1 of 3 - 19+ 3-dose series) Hepatitis B Vaccine (1 of 3 - 19+ 3-dose series) [facility] Start: 2006 Anxiety Screening Anxiety Screening [facility] Start: 2006 Depression Screening Depression Screening [facility] Start: 1988 HEPATITIS B (1 of 3 - 3-dose series) HEPATITIS B (1 of 3 - 3-dose series) [facility] Antibody to lupus La protein measurement [facility] Antibody to SS-A measurement [facility] CBC W Auto Different ial panel - Blood [facility] Centromere protein B Ab [Units/volume] in Serum [facility] End: 03-31-2023 Choriogonadotropin.beta subunit [Units/volume] in Serum or Plasma HCG QUANTITATIVE Lab Routine Partial molar Once per week for 8 Occurrences starting 03/31/2022 until 03/31/2023 [facility] Work Phone: Comment on above: Once per week for 8 Occurrences starting 03/31/2022 until 03/31/2023 Choriogonadotropin.b eta subunit [Units/volume] in Serum or Plasma HCG QUANTITATIVE Lab Routine Partial molar 03/31/2022 11:28 AM EDT [facility] Work Phone: Chromatin Ab [Units/ volume] in Serum or Plasma [facility] Comprehensive metabo lic 1999 panel - Serum or Plasma [facility] COVID & INFLUENZA A/ B & RSV PCR, ROUTINE COVID & INFLUENZA A/B & RSV PCR, ROUTINE Microbiology Routine Influenza-like illness Ordered: 11/24/2024 [facility] Work Phone: Comment on above: Ordered: 11/24/2024 Dehydroepiandrostero ne sulfate (DHEA-S) [Mass/volume] in Serum or Plasma [facility] Work Phone: Dehydroepiandrostero ne sulfate (DHEA-S) [Mass/volume] in Serum or Plasma [facility] DNA double strand Ab [Units/volume] in Serum [facility] Insertion intrauteri ne device iud INSERT INTRAUTERINE DEVICE Procedures Routine Encounter for IUD insertion Ordered: 04/19/2022 [facility] Work Phone: Comment on above: Ordered: 04/19/2022 Eun-1 extractable nuc lear Ab [Units/volume] in Serum [facility] Lipid 1996 panel - S santos or Plasma [facility] Nuclear Ab [Presence] in Serum [facility] OBSTETRIC ULTRASOUND WHI OBSTETR IC ULTRASOUND WHI Anc Imaging Routine 17 weeks gestation of Ordered: 03/18/2022 [facility] Work Phone: Comment on above: Ordered: 03/18/2022 PAP FLUID CERVICAL SCREENING PAP FLUID CERVICAL SCREENING Lab Routine Encounter for screening for malignant neoplasm of cervix Special screening examination for human papillomavirus (HPV) Ordered: 10/08/2022 [facility] Work Phone: Comment on above: Ordered: 10/08/2022 Patient Education [facility] Now Cl in Work Phone: Patient referral [facility] Work Phone: SCL-70 extractable n uclear Ab [Units/volume] in Serum by Immunoassay [facility] Merlos extractable nu clear Ab [Presence] in Serum [facility] T4 free measurement [facility] Testosterone Free [Mass/volume] in Serum or Plasma [facility] Work Phone: Testosterone measurement [facility] Work Phone: Thyroglobulin antibo dy measurement [facility] Thyroid stimulating hormone measurement [facility] Thyroid stimulating immunoglobulins actual/normal in Serum [facility] Thyroperoxidase Ab [Units/volume] in Serum or Plasma [facility] Vitamin B12 measurement [facility] Vitamin D, 1,25-dihy droxy measurement [facility] Vitamin D, 25-hydrox y measurement [facility] Immunizations Immunization Date Immunization Notes Care Provider David shaw 10-04-2024 influenza, seasonal, injectable, preservative free Dr. Zuleima Carnes MD Work Phone: [facility] 01-19-2024 tetanus toxoid, redu celeste diphtheria toxoid, and acellular pertussis vaccine, adsorbed Dr. Zuleima Carnes MD Work Phone: [facility] 09-09-2023 influenza, injectabl e, quadrivalent, preservative free Dr. Irene Powell MD Work Phone: [facility] 09-24-2022 influenza, injectabl e, quadrivalent, contains preservative Loree Dasilva MD Work Phone: [facility] Work Phone: 09-24-2022 influenza, injectabl e, quadrivalent, preservative free Dr. Irene Powell MD Work Phone: [facility] 08-31-2021 influenza virus vaccine, unspecified formulation Loree Dasilva MD Work Phone: [facility] 08-21-2021 COVID-19 vaccine, ag e 12+ yr (PFIZER-BIONTECH - [facility] TOP) Loree Dasilva MD Work Phone: [facility] 07-31-2021 COVID-19 vaccine, ag e 12+ yr (PFIZER-BIONTECH - PURPLE TOP) Loree Dasilva MD Work Phone: [facility] 02-05-2020 measles, mumps and rubella virus vaccine [facility] 11-02-2019 tetanus toxoid, redu celeste diphtheria toxoid, and acellular pertussis vaccine, adsorbed Loree Dasilva MD Work Phone: [facility] 09-12-2019 Influenza virus vaccine [facility] Payers Date Payer Category Payer Private Health Insurance [id number] 2025 Self-pay [id number] 2019 Unknown MMO MMO SUPERMED PLUS [id number] 2019-Present [phone] [address] [place] [address] PPO [id number] 2019 Unknown [id number] 2019 Unknown [id number] 2017 Unknown ANTHEM BLUE CARD PPO OOS [id number] 2017-2019 [address] [place] [address] PPO [id number] 1988 Unknown [id number] 2.16.840.1.962390.3.579.2.6 1988 Unknown [id number] 1988 Unknown [id number] .[id number] 1988 Unknown [id number] 2.16.840.1.656212.3.579.2.6 1988 Unknown [id number] 2.16.840.1.348678.3.579.2.6 1988 Unknown [id number] 2.16.840.1.820421.3.579.2.6 1988 Unknown [id number] 2.16.840.1.028057.3.579.2.6 1988 Unknown [id number] 2.16.840.1.499215.3.579.2.6 1988 Unknown [id number] 2.16.840.1.901691.3.579.2.6 1988 Unknown [id number] 2.16.840.1.493024.3.579.2.6 Unknown [id number] Unknown [id number] 2.16.840.1.458249.3.579.2.4 62 Unknown [id number] 2.16.840.1.620058.3.579.2.4 62 Unknown [id number] 2.16.840.1.787798.3.579.2.4 62 Unknown [id number] 2.16.840.1.217951.3.579.2.4 62 Unknown [id number] 2.16.840.1.097126.3.579.2.4 62 Unknown [id number] 2.16.840.1.883157.3.579.2.4 62 Unknown [id number] [id number] 62 Social History Date Type Detail Facility Start: 10-08-2022 End: 07-23-2025 Tobacco smoking status NHIS Never smoked tobacco [facility] Start: 02-12-2022 End: 11-24-2024 Alcohol intake Ex-drinker (finding) [facility] Start: 07-02-2014 History SDOH Alcohol Comment rare [facility] Start: 01-14-2022 Education 17 [facility] Start: 12-02-2021 [facility] Start: 1990 Sex Assigned At Female [facility] Start: 02-02-2022 End: 10-08-2022 Exposure to SARS-CoV-2 (event) Not sure [facility] Start: 11-16-2018 End: 03-17-2020 Alcohol intake Current drinker of alcohol (finding) [facility] Start: 03-18-2022 End: 02-23-2023 Tobacco smoking status NHIS Unknown if ever smoked [facility] Start: 02-03-2020 None [facility] Start: 10-08-2022 Tobacco use and exposure Smokeless tobacco non-user [facility] Start: 05-10-2023 End: 02-14-2024 History of Social function [facility] Start: 05-10-2023 End: 02-14-2024 Tobacco use panel [facility] Adult Depression Screening Assessment 0 [facility] Sex Assigned At [facility] Start: 1990 Sex assigned at Not on file [facility] Start: 01-08-2018 End: 03-14-2025 Sex Female (finding) [facility] Sexual Orientation Heterosexual (finding) [facility] NEGATED: Highlighted row [facility] Goals Date Patient Goal Desired Activity /State Functional Status Date Assessment Result Facility 03-10-2024 Functional Status Independent [facility] 03-10-2024 Functional Status No [facility] 03-09-2024 Functional Status [facility] 03-09-2024 Functional Status [facility] 03-09-2024 Functional Status 7pm-7am [facility] 03-09-2024 Functional Status Home independently [facility] 02-19-2024 Functional Status Other: 10 a-11a [facility] Mental Status Date Assessment Result Facility 02-19-2024 Mental Status Oriented x 4 [facility] 02-23-2023 Cognitive function Level Of Cons ciousness Awake;Alert;Follows Commands [facility] Work Phone: 03-19-2022 Cognitive function Voice/Name [facility] Work Phone: Clinical Notes 11-22-2018 to 06-18-2025 Note Date & Type Note Facility 06-18-2025 Evaluation note Diagnosis Onset Date Resolution Paresthesia acute June 18 8:54am Hypothyroidism (acquired) chronic June 18, 2025 8:54am Paresthesia acute July 23, 2025 8:56am Hypothyroidism (acquired) chronic July 23 8:56am Screening for cardiovascular condition noneactive July 23, 2025 8:56am Establishing care with new doctor, encounter for noneactive July 23 8:56am Fatigue noneactive July 23 8:56am [facility] Work Phone: 1(851) 871-784307-22-2025 [facility] [address] [place] [address] OFFICE VISIT Date of Service: 06/18/25 MR#: [id number] Acct: [id number] Name: PIPPA MEANS Rep #: [id number] : 1990 Provider: Dr. Donis Daen MD Age/Sex: 35/F Location: [facility] Status: Signed Intake Vital Signs 03/29/24 14:56 06/18/25 08:56 Height 5 ft 3 in 5 ft 3 in Weight: 110 lb BMI 19.5 BP 110/57 L Blood Pressure Location Lt brachial Position Sitting Pulse 95 Pulse Source Monitor Pulse Oximetry (%) 99 Oxygen Delivery Method room air Intake Visit Reasons: Thyroid Chief Complaint: Thyroid Is patient in pain?: No Allergies No Known Allergies Allergy (Verified 06/18/25 08:58) Medications ?Medication ?Instructions ?Recorded ?Confirmed ?Type liothyronine 5 mcg tablet 5 mcg PO QDAY 03/19/2505/07 History thyroid (pork) 30 mg tablet 30 mg PO QDAY 03/19/2509/21 History (Murray Thyroid) Lactobacillus cap PO 05/07/25 05/07/25 His tory acidophilus-Bifidobac.animalis 2.5 billion cell capsule (Daily Probiotic) multivitamin 1 tab PO QAM 05/07/25 History progesterone micronized 100 mg 100 mg PO QAM 06/18/25 06/18/25 History capsule PFSH Medical History (Updated 06/18/25 @ 10:[address] Donis Dean MD) Paresthesia Hypothyroidism (acquired) Missed with demise before 20 completed weeks of gestation Anxiety Non-smoker CVA (cerebral vascular accident) Surgical History History of cranial surgery S/P LASIK surgery Family History Mother Breast cancer Cancer Osteoporosis Thyroid disorder Father Myocardial infarction High cholesterol Grandmother Colon cancer Grandfather Parkinson disease Social History Smoking Status: Never smoker alcohol intake: never HPI HPI Chief Complaint: Thyroid Details: PIPPA MEANS, is a 35 F who presents to the office today for evaluation and management of thyroid disease. Her mother has hypothyroidism. She presented in 2021 following a miscarriage. She was unable to conceive for 2 years. (First childborn February 04, 2020) TSH was noted to be 4.9 Thyroid antibodies were negative. She was feeling fatigue, brain fog. Murray thyroid was started by [employer] She conceived within 3 months. TSH levels have been good since that time, with the highest reading in April, of 4.83. She isn't feeling her best. She is currently taking Murray 30 mg and liothyronine 5 mcg. She stopped T3 one week ago due to feeling dizzy. She has fatigue and brain fog. She is having cycles. No desire for future . ROS Const Constitutional: Positive for fatigue; No weight change or change in appetite Eyes Eyes: No change in vision ENT ENT: Positive for dizziness/vertigo; No difficulty swallowing Cardio Cardiology: No chest pain at rest, chest pain with exertion, shortness of breathor palpitations Musc Musculoskeletal: Positive for tingling (feet); No abnormal gait, joint pain or numbness Neuro Neurology: Positive for tingling (feet); No abnormal gait, memory loss or numbness Psych Psychiatric: No change in appetite, No memory loss, No Thoughts of harming yourself/Others and Positive for other (brain fog) Resp Respiratory: No cough, chest congestion or shortness of breath Gastro GI: No abdominal pain, constipation, diarrhea or difficulty swallowing Genitourinary-Female: No burning urination Skin Skin: No itchy eyes or wounds Endo Endocrine: Positive for fatigue; No weight change Aller/Imm Allergy/Immunologic: No itchy eyes Exam Const General: cooperative, healthy appearing, comfortable, no acute distress, well developed and not cushingoid Nutritional Appearance: thin Orientation: alert, awake and oriented x3 HENMT Head: normal to inspection Ears: hearing grossly normal bilaterally Nose: external nose normal Mouth: oral mucosae normal Eyes General: appearance normal, both eyes and all related structures Alignment and Position: alignment normal Periorbital: periorbital findings normal Eyelids: eyelids normal Conjunctivae: conjunctivae normal Neck Neck: normal visual inspection Neck mass: No Thyroid: thyroid normal Lymphatic: no lymphadenopathy noted Chest Chest palpation & inspection: normal inspection of the chest Resp Effort & Inspection: normal respiratory effort, able to speak in complete sentences, symmetric chest movement, no audible wheezes and no cough Auscultation: Bilateral: Clear to Auscultation Cardio Rate: regular rate Rhythm: regular rhythm Skin General: no rashes or lesions noted Neuro General: patient alert, patient awake and patient oriented x3 Cranial Nerves: CN's II-XI intact bilaterally Cognition: normal cognition Speech: speech normal Gait: normal gait Motor: muscle tone normal throughout Extrem General: no edema Psych Appearance: grossly normal Mental Status: mental status grossly normal Mood: congruent mood Affect: normal affect Speech and Movement: speech and movement normal Attitude: cooperative Thought Process: normal Thought Content: normal Judgment: judgment good Assessment and Plan Assessment and Plan (1) Hypothyroidism (acquired): Status: Chronic Plan: She has had two TSH levels over 4, negative antibodies. I am not convinced that she has thyroid failure. I counseled her regarding normal thyroid physiology and Hernán's thyroid disease. I counseled her regarding the different medications including Murray, liothyronine and levothyroxine. I explained why I don't prescribe Murray thyroid. I reviewed thyroid symptoms and why they don't confirm thyroid disease. I reviewed the consequences of excess T3 including a-fib, heart failure and boneloss. I reviewed her treatment options. She would like to prove/disprove hypothyroidism. She will stop her medication for 2 weeks and have labs done. (2) Paresthesia: Status: Acute Plan: Check B12 level. I have spent [64] minutes today reviewing labs, records and history. Time includes coordinating care, interpretation of tests, discussion with patient's other health care providers via telephone. This also includes time I spent with the patient for exam, treatment plan and education as well as documenting clinical information. Orders: Orders Thyroid Stim Hormone (TSH) Today E03.9 - Hypothyroidism, unspecified, R20.2 - Paresthesia of skin Free T4 Today E03.9 - Hypothyroidism, unspecified, R20.2 - Paresthesia of skin Vitamin B12 Today E03.9 - Hypothyroidism, unspecified, R20.2 - Paresthesia of skin Coding Level of Care Code Off vis,new,level 5 Diagnoses Hypothyroidism (acquired) E03.9 Paresthesia R20.2 06/18/25 1019 Date _ Donis Dean MD Cosign Signature: Date (if applicable) CC: ~ [facility]07-22-2025 Progress note Author Donis Dean [facility] Note Date/Time June 18, 2025 10:1 9am [facility] [address] [place] [address] OFFICE VISIT Date of Service: 06/18/25 MR#: [id number] Acct: [id number] Name: PIPPA MEANS Rep #: [id number] : 1990 Provider: Dr. Donis Dean MD Age/Sex: 35/F Location: [facility] Status: Signed Intake Vital Signs 03/29/24 14:56 06/18/25 08:56 Height 5 ft 3 in 5 ft 3 in Weight: 110 lb BMI 19.5 BP 110/57 L Blood Pressure Location Lt brachial Position Sitting Pulse 95 Pulse Source Monitor Pulse Oximetry (%) 99 Oxygen Delivery Method room air Intake Visit Reasons: Thyroid Chief Complaint: Thyroid Is patient in pain?: No Allergies No Known Allergies Allergy (Verified 06/18/25 08:58) Medications ?Medication ?Instructions ?Recorded ?Confirmed ?Type liothyronine 5 mcg tablet 5 mcg PO QDAY 03/19/2505/07 History thyroid (pork) 30 mg tablet 30 mg PO QDAY 03/19/2509/21 History (Murray Thyroid) Lactobacillus cap PO 05/07/25 05/07/25 His tory acidophilus-Bifidobac.animalis 2.5 billion cell capsule (Daily Probiotic) multivitamin 1 tab PO QAM 05/07/25 History progesterone micronized 100 mg 100 mg PO QAM 06/18/25 06/18/25 History capsule PFSH Medical History (Updated 06/18/25 @ 10:[address] Donis Dean MD) Paresthesia Hypothyroidism (acquired) Missed with demise before 20 completed weeks of gestation Anxiety Non-smoker CVA (cerebral vascular accident) Surgical History History of cranial surgery S/P LASIK surgery Family History Mother Breast cancer Cancer Osteoporosis Thyroid disorder Father Myocardial infarction High cholesterol Grandmother Colon cancer Grandfather Parkinson disease Social History Smoking Status: Never smoker alcohol intake: never HPI HPI Chief Complaint: Thyroid Details: PIPPA MEANS, is a 35 F who presents to the office today for evaluation and management of thyroid disease. Her mother has hypothyroidism. She presented in 2021 following a miscarriage. She was unable to conceive for 2 years. (First child born February 04, 2020) TSH was noted to be 4.9 Thyroid antibodies were negative. She was feeling fatigue, brain fog. Murray thyroid was started by [employer] She conceived within 3 months. TSH levels have been good since that time, with the highest reading in April, of 4.83. She isn't feeling her best. She is currently taking Murray 30 mg and liothyronine 5 mcg. She stopped T3 one week ago due to feeling dizzy. She has fatigue and brain fog. She is having cycles. No desire for future . ROS Const Constitutional: Positive for fatigue; No weight change or change in appetite Eyes Eyes: No change in vision ENT ENT: Positive for dizziness/vertigo; No difficulty swallowing Cardio Cardiology: No chest pain at rest, chest pain with exertion, shortness of breathor palpitations Musc Musculoskeletal: Positive for tingling (feet); No abnormal gait, joint pain or numbness Neuro Neurology: Positive for tingling (feet); No abnormal gait, memory loss or numbness Psych Psychiatric: No change in appetite, No memory loss, No Thoughts of harming yourself/Others and Positive for other (brain fog) Resp Respiratory: No cough, chest congestion or shortness of breath Gastro GI: No abdominal pain, constipation, diarrhea or difficulty swallowing Genitourinary-Female: No burning urination Skin Skin: No itchy eyes or wounds Endo Endocrine: Positive for fatigue; No weight change Aller/Imm Allergy/Immunologic: No itchy eyes Exam Const General: cooperative, healthy appearing, comfortable, no acute distress, well developed and not cushingoid Nutritional Appearance: thin Orientation: alert, awake and oriented x3 HENMT Head: normal to inspection Ears: hearing grossly normal bilaterally Nose: external nose normal Mouth: oral mucosae normal Eyes General: appearance normal, both eyes and all related structures Alignment and Position: alignment normal Periorbital: periorbital findings normal Eyelids: eyelids normal Conjunctivae: conjunctivae normal Neck Neck: normal visual inspection Neck mass: No Thyroid: thyroid normal Lymphatic: no lymphadenopathy noted Chest Chest palpation & inspection: normal inspection of the chest Resp Effort & Inspection: normal respiratory effort, able to speak in complete sentences, symmetric chest movement, no audible wheezes and no cough Auscultation: Bilateral: Clear to Auscultation Cardio Rate: regular rate Rhythm: regular rhythm Skin General: no rashes or lesions noted Neuro General: patient alert, patient awake and patient oriented x3 Cranial Nerves: CN's II-XI intact bilaterally Cognition: normal cognition Speech: speech normal Gait: normal gait Motor: muscle tone normal throughout Extrem General: no edema Psych Appearance: grossly normal Mental Status: mental status grossly normal Mood: congruent mood Affect: normal affect Speech and Movement: speech and movement normal Attitude: cooperative Thought Process: normal Thought Content: normal Judgment: judgment good Assessment and Plan Assessment and Plan (1) Hypothyroidism (acquired): Status: Chronic Plan: She has had two TSH levels over 4, negative antibodies. I am not convinced that she has thyroid failure. I counseled her regarding normal thyroid physiology and Hernán's thyroid disease. I counseled her regarding the different medications including Murray, liothyronine and levothyroxine. I explained why I don't prescribe Murray thyroid. I reviewed thyroid symptoms and why they don't confirm thyroid disease. I reviewed the consequences of excess T3 including a-fib, heart failure and boneloss. I reviewed her treatment options. She would like to prove/disprove hypothyroidism. She will stop her medication for 2 weeks and have labs done. (2) Paresthesia: Status: Acute Plan: Check B12 level. I have spent [64] minutes today reviewing labs, records and history. Time includes coordinating care, interpretation of tests, discussion with patient's other health care providers via telephone. This also includes time I spent with the patient for exam, treatment plan and education as well as documenting clinical information. Orders: Orders Thyroid Stim Hormone (TSH) Today E03.9 - Hypothyroidism, unspecified, R20.2 - Paresthesia of skin Free T4 Today E03.9 - Hypothyroidism, unspecified, R20.2 - Paresthesia of skin Vitamin B12 Today E03.9 - Hypothyroidism, unspecified, R20.2 - Paresthesia of skin Coding Level of Care Code Off vis,new,level 5 Diagnoses Hypothyroidism (acquired) E03.9 Paresthesia R20.2 06/18/25 1019 <Electronically signed by Donis Dean MD> Date _ Donis Dean MD Cosigner Signature: Date (if applicable) CC: ~ [facility] Work Phone: 1(351) 736-497304-22-2025 Evaluation note* Diagnosis Onset Date Resolution Status Admit Date Sinusitis noneactive March 19 8:08am [facility] Work Phone: 1(351) 353-560404-22-2025 Evaluation note* Diagnosis Onset Date Resolution Status Admit Date Sinusitis noneactive March 19 8:08am Paresthesia acute June 18 8:54am Hypothyroidism (acquired) chronic June 18, 2025 8:54am [facility] Work Phone: [phone] NoteHNO ID: [id number] Author: JOSE KYLE MD Service: ? Author Type: Physician Type: Progress Notes Filed: 11/24/2024 12:36 Note Text: Patient presents with: Cough: With intermittent fever AND laryngitis x3 days HPI: Feeling sick with sore throat initially 3 days ago. She felt nearly back to normal until last night when she had abrupt onset of illness. Positive symptoms: Cough, Fever (102), Sore throat, Post nasal drainage, hoarse voice, Chills, Body Aches, Malaise, Diarrhea, chest tightness Negative symptoms: Shortness of breath, Chest pain, Rhinorrhea, Vomiting, OTC: Ibuprofen, Tylenol Home COVID test negative. Her daughter has had 2 antibiotics for pneumonia. Her 8-month-old has not had influenza vaccine. MEDICATIONS: No current outpatient medications on file. No current facility-administered medications for this visit. ALLERGIES: ALLERGIES No Known Allergies VITALS: BP 109/75 Pulse 107 Temp 37.1 ?C (98.7 ?F) (Left Tympanic) Resp 16 Wt 51.9 kg (114 lb 6.7 oz) LMP 10/08/2024 (Exact Date) SpO2 99% BMI 20.27 kg/m? PHYSICAL EXAM: GEN: mildly ill appearing HEENT: PERRL, EOMI, conjunctiva clear Ears: canals clear. TMs without erythema, bulge, or effusion Sinuses: non-tender frontal sinus, non-tender maxillary sinuses Throat: moist mucous membranes, mild erythema, no exudate; hoarse voice Neck: supple, no thyromegaly, no lymphadenopathy HEART: regular rate, regular rhythm, no murmurs LUNGS: clear to auscultation, no wheezes or crackles, no increased WOB ASSESSMENT/PLAN: 1. Influenza-like illness - ICD9: 487.1, ICD10: J11.1 - suspect viral URI - Discussed supportive care treatment with rest, cold medicine, and analgesia. - COVID AND INFLUENZA A/B AND RSV PCR, ROUTINE Patient would not like antiviral treatment for herself but would like to know if she has influenza due to exposure of her family. Jose Kyle, [facility]12-28-2024 History of Present illness Narrative* Jose Kyle MD - 11/24/2024 12:24 PM EST Patient presents with: Cough: With intermittent fever & laryngitis x3 days HPI: Feeling sick with sore throat initially 3 days ago. She felt nearly back to normal until last nightwhen she had abrupt onset of illness. Positive symptoms: Cough, Fever (102), Sore throat, Post nasal drainage, hoarse voice, Chills, BodyAches, Malaise, Diarrhea, chest tightness Negative symptoms: Shortness of breath, Chest pain, Rhinorrhea, Vomiting, OTC: Ibuprofen, Tylenol Home COVID test negative. Her daughter has had 2 antibiotics for pneumonia. Her 8-month-old has not had influenza vaccine. MEDICATIONS: No current outpatient medications on file. No current facility-administered medications for this visit. ALLERGIES: ALLERGIES No Known Allergies VITALS: BP 109/75 Pulse 107 Temp 37.1 C (98.7 F) (Left Tympanic) Resp 16 Wt 51.9 kg (114 lb 6.7 oz) LMP 10/08/2024 (Exact Date) SpO2 99% BMI 20.27 kg/m PHYSICAL EXAM: GEN: mildly ill appearing HEENT: PERRL, EOMI, conjunctiva clear Ears: canals clear. TMs without erythema, bulge, or effusion Sinuses: non-tender frontal sinus, non-tender maxillary sinuses Throat: moist mucous membranes, mild erythema, no exudate; hoarse voice Neck: supple, no thyromegaly, no lymphadenopathy HEART: regular rate, regular rhythm, no murmurs LUNGS: clear to auscultation, no wheezes or crackles, no increased WOB ASSESSMENT/PLAN: 1. Influenza-like illness - ICD9: 487.1, ICD10: J11.1 - suspect viral URI - Discussed supportive care treatment with rest, cold medicine, and analgesia. - COVID & INFLUENZA A/B & RSV PCR, ROUTINE Patient would not like antiviral treatment for herself but would like to know if she has influenza due to exposure of her family. Jose Kyle MD [facility] NoteHNO ID: [id number] Author: NISHI DEAN APRN.[facility] Service: ? Author Type: Nurse Practitioner Type: Progress Notes Filed: 10/26/2024 08:55 Note Text: Subjective HPI HPI Pippa Means is a 34 year old female who presents today for CC of st, fever, congestion. This started 3 days ago. Has tried otc medication for relief. Symptoms are worsened by nothing. Risk factors sick exposures at home. nonsmoker. .Patient presents with: Sore Throat: With intermittent fever AND congestion x 3 days PAST MEDICAL HISTORY Diagnosis Date Craniostenosis anxiety anxiety Stroke, vertebral artery (HCC) 09/08/2016 Right vertebral artery disection Uterine fibroid seen on ultrasound 09/06/2019 PAST SURGICAL HISTORY Procedure Laterality Date INSERTION OF IUD 06/29/2017 paragard-removed LASIK 2015 both eyes PAST SURGICAL HISTORY OF Craniostenosis SUCTION D AND C 03/19/2022 17 weeks by GA, 11w3 d CRL, ALLERGIES Patient has no known allergies. MEDICATIONS liothyronine (CYTOMEL) 5 mcg tablet Take 5 mcg by mouth once daily. escitalopram oxalate (LEXAPRO) 10 mg tablet Take 10 mg by mouth once daily. (Patient not taking: Reported on 02/14/2024) MEDICATION, NON-DATABASE Collagen Powder (Patient not taking: Reported on 10/26/2024) Ihkdqwjf-Ro-Qer-Fe-FA ( VITAMIN) tab Take 1 tablet by mouth once daily. (Patient not taking: Reported on 10/26/2024) FAMILY HISTORY Problem Relation Age of Onset Cancer Mother lymphoma Heart Father other (benign brain tumor) Father None Sister None Sister None Brother other (other) Maternal Grandmother Parkinson?s Disease Maternal Grandfather Macular Degen Paternal Grandmother other (ALS) Paternal Grandfather No Known Problems Daughter Social History Tobacco Use Smoking status: Never Smokeless tobacco: Never Vaping Use Vaping status: Never Used Substance Use Topics Alcohol use: Not Currently Comment: rare Drug use: No Review of Systems Constitutional: Negative for fever. HENT: Positive for congestion and sore throat. Negative for ear pain and nosebleeds. Respiratory: Negative for cough, shortness of breath and wheezing. Musculoskeletal: Negative for neck pain. Objective Blood pressure 108/78, pulse 116, temperature 36.6 ?C (97.8 ?F), temperature source Left Tympanic, resp. rate 16, weight 53.6 kg (118 lb 2.7 oz), last menstrual period 10/08/2024, SpO2 97%. Physical Exam Constitutional: General: She is not in acute distress. Appearance: She is not toxic-appearing or diaphoretic. HENT: Head: Normocephalic and atraumatic. Right Ear: Hearing, tympanic membrane, ear canal and external ear normal. Left Ear: Hearing, tympanic membrane, ear canal and external ear normal. Nose: Nose normal. Mouth/Throat: Lips: Sundown. Mouth: Mucous membranes are moist. Pharynx: Uvula midline. Posterior oropharyngeal erythema present. No pharyngeal swelling, oropharyngeal exudate or uvula swelling. Eyes: General: Lids are normal. No scleral icterus. Right eye: No discharge. Left eye: No discharge. Conjunctiva/sclera: Conjunctivae normal. Pupils: Pupils are equal, round, and reactive to light. Neck: Trachea: Trachea normal. Cardiovascular: Rate and Rhythm: Normal rate and regular rhythm. Heart sounds: Normal heart sounds. Pulmonary: Effort: Pulmonary effort is normal. Breath sounds: Normal breath sounds. Musculoskeletal: Cervical back: Normal range of motion and neck supple. Lymphadenopathy: Cervical: No cervical adenopathy. Right cervical: No superficial cervical adenopathy. Left cervical: No superficial cervical adenopathy. Skin: Findings: No rash. Neurological: Mental Status: She is alert and oriented to person, place, and time. ASSESSMENT/PLAN: 1. Sore throat - ICD9: 462, ICD10: J02.9 - suspect viral - Group A strep molecular testing negative - Discussed supportive care treatment with fluids, rest and analgesia. - The patient should follow up in 3-5 days if symptoms persist or worsen - STREP A MOLECULAR (POC) Nishi Dean APRN.[facility]11-29-2024 History of Present illness Narrative* Nishi Dean APRN.[employer] - 10/26/2024 8:53 AM EST Subjective HPI HPI Pippa Means is a 34 year old female who presents today for CC of st, fever, congestion. This started 3 days ago. Has tried otc medication for relief. Symptoms are worsened by nothing. Risk factors sick exposures at home. nonsmoker. .Patient presents with: Sore Throat: With intermittent fever & congestion x 3 days PAST MEDICAL HISTORY Diagnosis Date Craniostenosis anxiety anxiety Stroke, vertebral artery (HCC) 09/08/2016 Right vertebral artery disection Uterine fibroid seen on ultrasound 09/06/2019 PAST SURGICAL HISTORY Procedure Laterality Date INSERTION OF IUD 06/29/2017 paragard-removed LASIK 2015 both eyes PAST SURGICAL HISTORY OF Craniostenosis SUCTION D & C 03/19/2022 17 weeks by GA, 11w3 d CRL, ALLERGIES Patient has no known allergies. MEDICATIONS liothyronine (CYTOMEL) 5 mcg tablet Take 5 mcg by mouth once daily. escitalopram oxalate (LEXAPRO) 10 mg tablet Take 10 mg by mouth once daily. (Patient not taking: Reported on 02/14/2024) MEDICATION, NON-DATABASE Collagen Powder (Patient not taking: Reported on 10/26/2024) Cvejpmls-Hw-Olg-Fe-FA ( VITAMIN) tab Take 1 tablet by mouth once daily. (Patient not taking: Reported on 10/26/2024) FAMILY HISTORY Problem Relation Age of Onset Cancer Mother lymphoma Heart Father other (benign brain tumor) Father None Sister None Sister None Brother other (other) Maternal Grandmother Parkinson s Disease Maternal Grandfather Macular Degen Paternal Grandmother other (ALS) Paternal Grandfather No Known Problems Daughter Social History Tobacco Use Smoking status: Never Smokeless tobacco: Never Vaping Use Vaping status: Never Used Substance Use Topics Alcohol use: Not Currently Comment: rare Drug use: No Review of Systems Constitutional: Negative for fever. HENT: Positive for congestion and sore throat. Negative for ear pain and nosebleeds. Respiratory: Negative for cough, shortness of breath and wheezing. Musculoskeletal: Negative for neck pain. Objective Blood pressure 108/78, pulse 116, temperature 36.6 C (97.8 F), temperature source Left Tympanic, resp. rate 16, weight 53.6 kg (118 lb 2.7 oz), last menstrual period 10/08/2024, SpO2 97%. Physical Exam Constitutional: General: She is not in acute distress. Appearance: She is not toxic-appearing or diaphoretic. HENT: Head: Normocephalic and atraumatic. Right Ear: Hearing, tympanic membrane, ear canal and external ear normal. Left Ear: Hearing, tympanic membrane, ear canal and external ear normal. Nose: Nose normal. Mouth/Throat: Lips: Sundown. Mouth: Mucous membranes are moist. Pharynx: Uvula midline. Posterior oropharyngeal erythema present. No pharyngeal swelling, oropharyngeal exudate or uvula swelling. Eyes: General: Lids are normal. No scleral icterus. Right eye: No discharge. Left eye: No discharge. Conjunctiva/sclera: Conjunctivae normal. Pupils: Pupils are equal, round, and reactive to light. Neck: Trachea: Trachea normal. Cardiovascular: Rate and Rhythm: Normal rate and regular rhythm. Heart sounds: Normal heart sounds. Pulmonary: Effort: Pulmonary effort is normal. Breath sounds: Normal breath sounds. Musculoskeletal: Cervical back: Normal range of motion and neck supple. Lymphadenopathy: Cervical: No cervical adenopathy. Right cervical: No superficial cervical adenopathy. Left cervical: No superficial cervical adenopathy. Skin: Findings: No rash. Neurological: Mental Status: She is alert and oriented to person, place, and time. ASSESSMENT/PLAN: 1. Sore throat - ICD9: 462, ICD10: J02.9 - suspect viral - Group A strep molecular testing negative - Discussed supportive care treatment with fluids, rest and analgesia. - The patient should follow up in 3-5 days if symptoms persist or worsen - STREP A MOLECULAR (POC) Nishi Dean APRN.AP documented in [facility] encounter[facility] Discharge instructions Patient Education 03/10/2024 21:51:09 Care After Vaginal Delivery Care After Vaginal Delivery This sheet gives you information about how to care for yourself from the time you deliver your babyto up to 6 12 weeks after delivery ( period). Your health care provider may also give youmore specific instructions. If you have problems or questions, contact your health care provider. Follow these instructions at home: Vaginal bleeding It is normal to have vaginal bleeding (lochia) after delivery. Wear a sanitary pad for vaginal bleeding and discharge. ?During the first week after delivery, the amount and appearance of lochia is often similar to a menstrual period. ?Over the next few weeks, it will gradually decrease to a dry, yellow-brown discharge. ?For most women, lochia stops completely by 4 6 weeks after delivery. Vaginal bleeding can vary from woman to woman. Change your sanitary pads frequently. Watch for any changes in your flow, such as: ?A sudden increase in volume. ?A change in color. ?Large blood clots. If you pass a blood clot from your vagina, save it and call your health care provider to discuss. Do not flush blood clots down the toilet before talking with your health care provider. Do not use tampons or douches until your health care provider says this is safe. If you are not , your period should return 6 8 weeks after delivery. If you are feeding your child breast milk only (exclusive ), your period may not return until you stop . Perineal care Keep the area between the vagina and the anus (perineum) clean and dry as told by your health care provider. Use medicated pads and pain-relieving sprays and creams as directed. If you had a cut in the perineum (episiotomy) or a tear in the vagina, check the area for signs of infection until you are healed. Check for: ?More redness, swelling, or pain. ?Fluid or blood coming from the cut or tear. ?Warmth. ?Pus or a bad smell. You may be given a squirt bottle to use instead of wiping to clean the perineum area after you go to the bathroom. As you start healing, you may use the squirt bottle before wiping yourself. Make sure to wipe gently. To relieve pain caused by an episiotomy, a tear in the vagina, or swollen veins in the anus (hemorrhoids), try taking a warm sitz bath 2 3 times a day. A sitz bath is a warm water bath that is taken while you are sitting down. The water should only come up to your hips and should cover your buttocks. Breast care Within the first few days after delivery, your breasts may feel heavy, full, and uncomfortable (breast engorgement). Milk may also leak from your breasts. Your health care provider can suggest ways to help relieve the discomfort. Breast engorgement should go away within a few days. If you are : ?Wear a bra that supports your breasts and fits you well. ?Keep your nipples clean and dry. Apply creams and ointments as told by your health care provider. ?You may need to use breast pads to absorb milk that leaks from your breasts. ?You may have uterine contractions every time you breastfeed for up to several weeks after delivery. Uterine contractions help your uterus return to its normal size. ?If you have any problems with , work with your health care provider or design consultant. If you are not : ?Avoid touching your breasts a lot. Doing this can make your breasts produce more milk. ?Wear a good-fitting bra and use cold packs to help with swelling. ?Do not squeeze out (express) milk. This causes you to make more milk. Intimacy and sexuality Ask your health care provider when you can engage in sexual activity. This may depend on: ?Your risk of infection. ?How fast you are healing. ?Your comfort and desire to engage in sexual activity. You are able to get after delivery, even if you have not had your period. If desired, talkwith your health care provider about methods of control (contraception). Medicines Take zzmd-lzu-mgeippa and prescription medicines only as told by your health care provider. If you were prescribed an antibiotic medicine, take it as told by your health care provider. Do notstop taking the antibiotic even if you start to feel better. Activity Gradually return to your normal activities as told by your health care provider. Ask your health care provider what activities are safe for you. Rest as much as possible. Try to rest or take a nap while your baby is sleeping. Eating and drinking Drink enough fluid to keep your urine pale yellow. Eat high-fiber foods every day. These may help prevent or relieve constipation. High-fiber foods include: ?Whole grain cereals and breads. ?Brown rice. ?Beans. ?Fresh fruits and vegetables. Do not try to lose weight quickly by cutting back on calories. Take your vitamins until your checkup or until your health care provider tells you it is okay to stop. Lifestyle Do not use any products that contain nicotine or tobacco, such as cigarettes and e-cigarettes. If you need help quitting, ask your health care provider. Do not drink alcohol, especially if you are . General instructions Keep all follow-up visits for you and your baby as told by your health care provider. Most women visit their health care provider for a checkup within the first 3 6 weeks after delivery. Contact a health care provider if: You feel unable to cope with the changes that your child brings to your life, and these feelings donot go away. You feel unusually sad or worried. Your breasts become red, painful, or hard. You have a fever. You have trouble holding urine or keeping urine from leaking. You have little or no interest in activities you used to enjoy. You have not breastfed at all and you have not had a menstrual period for 12 weeks after delivery. You have stopped and you have not had a menstrual period for 12 weeks after you stopped . You have questions about caring for yourself or your baby. You pass a blood clot from your vagina. Get help right away if: You have chest pain. You have difficulty breathing. You have sudden, severe leg pain. You have severe pain or cramping in your lower abdomen. You bleed from your vagina so much that you fill more than one sanitary pad in one hour. Bleeding should not be heavier than your heaviest period. You develop a severe headache. You faint. You have blurred vision or spots in your vision. You have bad-smelling vaginal discharge. You have thoughts about hurting yourself or your baby. If you ever feel like you may hurt yourself or others, or have thoughts about taking your own life,get help right away. You can go to the nearest emergency department or call: Your local emergency services (911 in the [place] A suicide crisis helpline, such as the National Suicide Prevention Lifeline at . Thisis open 24 hours a day. Summary The period of time right after you deliver your up to 6 12 weeks after delivery is called the period. Gradually return to your normal activities as told by your health care provider. Keep all follow-up visits for you and your baby as told by your health care provider. This information is not intended to replace advice given to you by your health care provider. Make sure you discuss any questions you have with your health care provider. Document Released: 09/10/2008 Document Revised: 11/17/2018 Document Reviewed: 08/28/2018 [employer] Patient Education 2020 [employer]. Follow Up Care 03/09/2024 15:31:32 With:GERRI TREJO Address: DR [facility] JACKSON [address] [place] [phone] When:Within 6 Week(s) Comments: [facility] 04-13-2024 Note Discharge Instructions Thank you for allowing [facility] to assist you with your healthcare needs. The following is importantdischarge information regarding your hospital visit. Your Care Team GERRI TREJO Your Diagnosis 40 weeks gestation of Single liveborn, born in hospital Vaginal delivery What to do next Instructions From Your Doctor Call for fever >100.4; pain/redness/tenderness in legs or breasts; foul smelling discharge; bleeding >1/pad an hour for 3 or more hours in a row or you feel lightheaded or dizzy; continue vitamins while you are ; continue iron if it was prescribed until bottle is gone or6 weeks post . No intercourse until 6 week visit if you have had stitches. You may alternate T ylenol and Ibuprofen every 6 hours as needed for pain/cramps. Call with any questions or concerns. Follow Up Appointments Follow Up with GERRI TREJO When In 6 weeks Why: Where: DR AL[facility]ACK[facility] [address] [phone] Someone Will Contact You Regarding These Home Health Referrals No home referrals have been ordered for you. No one will call you. The Following Activity and Diet Have Been Ordered for You Discharge Activity - Ordered -- Sexual Maybee Restricted, Nothing in the vagina until bleeding stops and sutures are healed, 03/10/24 13:10:00 EDT Discharge Driving Restrictions - Ordered -- No driving until pain-free, 03/10/24 13:10:00 EDT Discharge Return to Work, School, or Sports - Ordered -- within 6 weeks, May return to: work, 03/10/24 13:10:00 EDT Discharge Diet - Ordered -- Type of Diet: Regular Diet, No changes were made to your diet during your hospital stay. Please resume your pre hospitalization diet on discharge., 03/10/24 13:10:00 EDT The Following Equipment Has Been Ordered for You No qualifying data available. The Following Treatments Have Been Arranged for You Discharge Labs No qualifying data available. Discharge Radiology No qualifying data available. Other Therapies No qualifying data available. Allergies No Known Medication Allergies Medications Please ask your primary doctor or pharmacist before taking any other medication not listed, including over the counter drugs, herbal medications, vitamins and or supplements as they may interact withyour home medications. What How Much When Instructions Last Dose New ibuprofen (Motrin) 600 Milligram by mouth Every 6 hours as needed for uterine cramping Unchanged multivitamin, ( Multivitamins) 1 tab(s) by mouth Once a day Unchanged thyroid desiccated (VIDEO AND SOUND RECORDER Thyroid 30 mg oral tablet) Please take this list to your next doctor s visit. Bring all medications you take, including over the counter medications, herbals and other supplements with you to your doctor s visit. Patients and families are reminded to discard old lists and to update any records with all medication providers or retail pharmacies. Education Materials Care After Vaginal Delivery This sheet gives you information about how to care for yourself from the time you deliver your babyto up to 6 12 weeks after delivery ( period). Your health care provider may also give youmore specific instructions. If you have problems or questions, contact your health care provider. Follow these instructions at home: Vaginal bleeding It is normal to have vaginal bleeding (lochia) after delivery. Wear a sanitary pad for vaginal bleeding and discharge. ? During the first week after delivery, the amount and appearance of lochia is often similar to a menstrual period. ? Over the next few weeks, it will gradually decrease to a dry, yellow-brown discharge. ? For most women, lochia stops completely by 4 6 weeks after delivery. Vaginal bleeding can vary fromwoman to woman. Change your sanitary pads frequently. Watch for any changes in your flow, such as: ? A sudden increase in volume. ? A change in color. ? Large blood clots. If you pass a blood clot from your vagina, save it and call your health care provider to discuss. Do not flush blood clots down the toilet before talking with your health care provider. Do not use tampons or douches until your health care provider says this is safe. If you are not , your period should return 6 8 weeks after delivery. If you are feeding your child breast milk only (exclusive ), your period may not return until you stop . Perineal care Keep the area between the vagina and the anus (perineum) clean and dry as told by your health care provider. Use medicated pads and pain-relieving sprays and creams as directed. If you had a cut in the perineum (episiotomy) or a tear in the vagina, check the area for signs of infection until you are healed. Check for: ? More redness, swelling, or pain. ? Fluid or blood coming from the cut or tear. ? Warmth. ? Pus or a bad smell. You may be given a squirt bottle to use instead of wiping to clean the perineum area after you go to the bathroom. As you start healing, you may use the squirt bottle before wiping yourself. Make sure to wipe gently. To relieve pain caused by an episiotomy, a tear in the vagina, or swollen veins in the anus (hemorrhoids), try taking a warm sitz bath 2 3 times a day. A sitz bath is a warm water bath that is taken while you are sitting down. The water should only come up to your hips and should cover your buttocks. Breast care Within the first few days after delivery, your breasts may feel heavy, full, and uncomfortable (breast engorgement). Milk may also leak from your breasts. Your health care provider can suggest ways to help relieve the discomfort. Breast engorgement should go away within a few days. If you are : ? Wear a bra that supports your breasts and fits you well. ? Keep your nipples clean and dry. Apply creams and ointments as told by your health care provider. ? You may need to use breast pads to absorb milk that leaks from your breasts. ? You may have uterine contractions every time you breastfeed for up to several weeks after delivery.Uterine contractions help your uterus return to its normal size. ? If you have any problems with , work with your health care provider or design consultant. If you are not : ? Avoid touching your breasts a lot. Doing this can make your breasts produce more milk. ? Wear a good-fitting bra and use cold packs to help with swelling. ? Do not squeeze out (express) milk. This causes you to make more milk. Intimacy and sexuality Ask your health care provider when you can engage in sexual activity. This may depend on: ? Your risk of infection. ? How fast you are healing. ? Your comfort and desire to engage in sexual activity. You are able to get after delivery, even if you have not had your period. If desired, talkwith your health care provider about methods of control (contraception). Medicines Take lkkv-qpw-hqsfsas and prescription medicines only as told by your health care provider. If you were prescribed an antibiotic medicine, take it as told by your health care provider. Do notstop taking the antibiotic even if you start to feel better. Activity Gradually return to your normal activities as told by your health care provider. Ask your health care provider what activities are safe for you. Rest as much as possible. Try to rest or take a nap while your baby is sleeping. Eating and drinking Drink enough fluid to keep your urine pale yellow. Eat high-fiber foods every day. These may help prevent or relieve constipation. High-fiber foods include: ? Whole grain cereals and breads. ? Brown rice. ? Beans. ? Fresh fruits and vegetables. Do not try to lose weight quickly by cutting back on calories. Take your vitamins until your checkup or until your health care provider tells you it is okay to stop. Lifestyle Do not use any products that contain nicotine or tobacco, such as cigarettes and e-cigarettes. If you need help quitting, ask your health care provider. Do not drink alcohol, especially if you are . General instructions Keep all follow-up visits for you and your baby as told by your health care provider. Most women visit their health care provider for a checkup within the first 3 6 weeks after delivery. Contact a health care provider if: You feel unable to cope with the changes that your child brings to your life, and these feelings donot go away. You feel unusually sad or worried. Your breasts become red, painful, or hard. You have a fever. You have trouble holding urine or keeping urine from leaking. You have little or no interest in activities you used to enjoy. You have not breastfed at all and you have not had a menstrual period for 12 weeks after delivery. You have stopped and you have not had a menstrual period for 12 weeks after you stopped . You have questions about caring for yourself or your baby. You pass a blood clot from your vagina. Get help right away if: You have chest pain. You have difficulty breathing. You have sudden, severe leg pain. You have severe pain or cramping in your lower abdomen. You bleed from your vagina so much that you fill more than one sanitary pad in one hour. Bleeding should not be heavier than your heaviest period. You develop a severe headache. You faint. You have blurred vision or spots in your vision. You have bad-smelling vaginal discharge. You have thoughts about hurting yourself or your baby. If you ever feel like you may hurt yourself or others, or have thoughts about taking your own life,get help right away. You can go to the nearest emergency department or call: Your local emergency services (911 in the [place] A suicide crisis helpline, such as the National Suicide Prevention Lifeline at . Thisis open 24 hours a day. Summary The period of time right after you deliver your up to 6 12 weeks after delivery is called the period. Gradually return to your normal activities as told by your health care provider. Keep all follow-up visits for you and your baby as told by your health care provider. This information is not intended to replace advice given to you by your health care provider. Make sure you discuss any questions you have with your health care provider. Document Released: 09/10/2008 Document Revised: 11/17/2018 Document Reviewed: 08/28/2018 Elsevier Patient Education 2020 [employer] Additional Information VACCINATE! IT SAVES LIVES! Members of the community who have not yet received the COVID-19 vaccine and would like to receive it can visit one of [facility] vaccine clinics. There are many vaccine clinic locations within the [facility]. For locations and available times, please visit www.[email or web address].[place].gov/. It is important to note that some COVID mobile vaccine clinics are held outdoors and may be canceled in rainy or stormy conditions. To learn more about pediatric vaccinations (ages 5-11), we invite you to visit the [facility] webpage. https://www.[email or web address]/pages/3601-Jkdfc-[email or web address]-Lrhyf-[email or web address] stions.htmlTo learn more about the COVID-19 vaccine, we invite you to visit the CDC website for a list of frequently asked questions. https://www.cdc.gov/coronavirus/2019-ncov/vaccines/faq.html [facility] Patient Portal Access Instructions: Stay connected with your healthcare team and access your personal medical information anytime with the [facility] Patient Portal.If you would like a full copy of your medical records, please contact the [facility] Medical Records Department, Tuesday through Tuesday between 8a.m. and 4:30p.m. Please follow the directions below to access the portal: 1.Access the email account you provided upon registration to the [facility].2.Look for an invitation email from [facility].3.Open the email and access the invitation link: Accept Invitation to [facility]4.Fill in the required palacios to create your account. Sign into www.[employer] with your username and password that you created in the above steps to stay up to date. You can then view a summary of results, a summary of your visits, and the ability to download your summaries to your computer or send the information securely to a physician. Remember that your healthcare information is confidential, so carefully consider who you will allow to register on the [facility] Patient Portal for access to your information. You can also access the [facility] Patient Portal on the [employer]. Simply click on Health Records under [employer] and then click on the [employer] logo. HOW TO SAFELY DISPOSE OF PRESCRIPTION MEDICATIONS Please use one of the following methods to safely dispose of your unused medications. 1.Use a drug disposal kit: the drug disposal pouch allows you to safely discard your old and unuseddrugs. Ask your nurse to give you one when you are discharged.2.Visit a local take-back location: Many local pharmacies and police departments have programs that collect old and unwanted prescriptiondrugs. Call your local pharmacy or go to http://bit.[employer]/9B0Vk5b to find one close to you.3.Make use of household items: Use cat litter or old coffee grounds to dispose medications if other options arenot available. Mix your drugs with these household products, seal them in an airtight container andthrow it into the garbage. Call [facility]: [phone] to be sure your drugs can be disposed of in this way. Some medicines may require a different approach.4.Never flush your medications down the toilet. IF YOU HAVE BEEN PRESCRIBED AN OPIOID FOR PAIN If you have been prescribed an opioid (such as hydrocodone, oxycodone or morphine), it is critical to understand the possible side effects and risks of opioid pain medications. Even when taken as directed, opioids can have several side effects including: Tolerance, meaning you might need to take more of a medication for the same pain relief. Nausea, vomiting and/or constipation. Sleepiness, dizziness, dry mouth, confusion, depression or itching. Physical dependence, meaning you have withdrawal symptoms when a medication is stopped, can develop within a few days. KNOW YOUR RESPONSIBILITIES It is important to know exactly how much and how often to take the opioid pain medications you are prescribed. Never take opioids in higher amounts or more often than prescribed. Do not combine opioids with alcohol or other drugs that cause drowsiness, such as benzodiazepines, also known as benzos,including diazepam and alprazolam, muscle relaxants or sleep aids. Never sell or share prescriptionopioids. This is illegal. Store opioids in a secure place and out of reach of others (including children, family, friends and visitors). The last page of this document has been signed and retained as a CHART COPY Signatures Patient Education Materials Care After Vaginal Delivery Medication Leaflets My discharge plan and instructions have been reviewed and explained to me and I,PIPPA MEANS understand my current condition and have read and understand these discharge instructions. I have received a written copy of the plan/instructions. If I have questions, I am aware that I should contact my doc tor. Patient/Rap Artist Signature: Date/Time: Relationship to Patient: Witness Name/Signature: Date/Time: [facility]04-12-2024 Anesthesiology Consult note Patient: PIPPA MEANS Age: 33 years Sex: Female : 1990 Associated Diagnoses: None Author: KEMI JOHNS Preoperative Information Time of last food or liquid consumption: 03/09/2024 00:00:00 Anesthesia history Patient's history: negative. Family's history: negative. Review of Systems Ear/Nose/Mouth/Throat: Negative except as documented in history of present illness. Respiratory: Negative except as documented in history of present illness. Cardiovascular: Negative except as documented in history of present illness. Gastrointestinal: Negative except as documented in history of present illness. Genitourinary: Negative except as documented in history of present illness. Endocrine: Negative except as documented in history of present illness. Musculoskeletal: Negative except as documented in history of present illness. Integumentary: Negative except as documented in history of present illness. Neurologic: Negative except as documented in history of present illness. Reproductive: Para Scoring , Week's Gestation 40.1, EDC 03/08/2024. Health Status Allergies: Allergic Reactions (Selected) No Known Medication Allergies, Allergies (1) ActiveReaction No Known Medication AllergiesNone Documented Current medications: (Selected) Inpatient Medications Ordered Bicitra: 30 mL, Oral, AsDirected, PRN: Gastric Upset Brethine: 0.25 mg, 0.25 mL, Subcutaneous, AsDirected, PRN: Control symptoms Brethine: 0.25 mg, 0.25 mL, Subcutaneous, AsDirected, PRN: Other (see order comments) Cytotec: 1,000 mcg, 5 tab(s), Rectal, Once, PRN: Other (see order comments) Hemabate: 250 mcg, 1 mL, Intramuscular, Once, PRN: Other (see order comments) LR 1,000 mL: 125 mL/hr, Intravenous LR 500 mL Bolus: 500 mL, IV Bolus, AsDirected, PRN: Other (see order comments) Methergine: 0.2 mg, 1 mL, Intramuscular, Once, PRN: Other (see order comments) Oxytocin for IV (mL/hr) 20 unit(s) + LR Premix Diluent 1,000 mL: 999 mL/hr, Intravenous Oxytocin for IV (munit/min) 20 unit(s) [2 munit/min] + LR Premix Diluent 1,000 mL: 6 mL/hr, Intravenous Pitocin: 20 unit(s), 2 mL, Intramuscular, Once, PRN: Other (see order comments) Xylocaine HCl 1% injectable solution: 20 mg, 2 mL, Perineum, AsDirected, PRN: to perineal sutures Zofran: 4 mg, 2 mL, IV Push, q4h, PRN: Nausea tranexamic acid 1 g / 100 mL 0.7% NaCl PMX: 1 gram(s), 100 mL, 300 mL/hr, IV Piggyback, AsDirected,PRN: Other (see order comments) Documented Medications Documented VIDEO AND SOUND RECORDER Thyroid 30 mg oral tablet: 0 Refill(s) Multivitamins: 1 tab(s), Oral, qDay, 0 Refill(s), Medications (14) Active Scheduled: (0) Continuous: (3) Lactated Ringers 1,000 mL 1,000 mL, Intravenous, 125 mL/hr Oxytocin 20 units in Lactated Ringers 1000 mL 20 unit(s) + LR Premix Diluent 1,000 mL 1,000 mL, Intravenous, 999 mL/hr Oxytocin 20 units in Lactated Ringers 1000 mL 20 unit(s) [2 munit/min] + LR Premix Diluent 1,000 mL1,000 mL, Intravenous, 6 mL/hr PRN: (11) carboprost 250 mcg/ml 1mL ampule 250 mcg 1 mL, Intramuscular, Once citric acid-sodium citrate 334 mg-500 mg/5 mL (30 mL) Mayelin UD 30 mL, Oral, AsDirected Lactated Ringers Injection 500 mL * Bolus * 500 mL, IV Bolus, AsDirected lidocaine 1% (MPF) 2 mL vial pf 20 mg 2 mL, Perineum, AsDirected methylergonovine 0.2 mg/mL (1 mL) ampule 0.2 mg 1 mL, Intramuscular, Once misoprostol 200 mcg tablet 1,000 mcg 5 tab(s), Rectal, Once ondansetron 2 mg/ 1 mL 2 mL INJ 4 mg 2 mL, IV Push, q4h oxytocin 10 units/mL 1 mL vial 20 unit(s) 2 mL, Intramuscular, Once terbutaline 1 mg/ml vial 0.25 mg 0.25 mL, Subcutaneous, AsDirected terbutaline 1 mg/ml vial 0.25 mg 0.25 mL, Subcutaneous, AsDirected tranexamic acid PMX 1 gram(s) 100 mL, IV Piggyback, AsDirected Problem list: Medical / SNOMED CT 117217644 / Confirmed Resolved: / SNOMED CT 248005378 Resolved: / SNOMED CT 617133008, Active Problems (1) Histories Past Medical History: Resolved ([id number]): Onset on 11/18/2021 at 31 years. Resolved on 03/17/2022 at 31 years. ([id number]): Onset on 04/23/2019 at 29 years. Resolved on 02/04/2020 at 29 years. 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 Craniosynostosis (66642103). Dilatation and curettage: routine ([id number]). Social History Social & Psychosocial Habits Alcohol 03/09/2024 Use: Socially when not Substance Abuse 03/09/2024 Use: Never Tobacco 03/09/2024 Tobacco Use: Never (less than 100 in l Home/Environment 03/09/2024 Living situation: Home/Independent Nutrition/Health 03/09/2024 Type of diet: Regular Sexual 03/09/2024 Sexually active: Yes . Physical Examination Vital Signs 03/09/2024 19:54 EDT Heart Rate Monitored 85 bpm Systolic Blood Pressure Non-Invasive 96 mmHg Diastolic Blood Pressure Non-Invasive 60 mmHg 03/09/2024 19:52 EDT Heart Rate Monitored 90 bpm Systolic Blood Pressure Non-Invasive 114 mmHg Diastolic Blood Pressure Non-Invasive 78 mmHg Reason For Taking VItal Signs 15 min post start of transfusion 03/09/2024 19:44 EDT Heart Rate Monitored 101 bpm HI Systolic Blood Pressure Non-Invasive 125 mmHg Diastolic Blood Pressure Non-Invasive 78 mmHg 03/09/2024 19:35 EDT Temperature Oral 36.8 DegC Respiratory Rate 18 br/min 03/09/2024 18:03 EDT Temperature Oral 37 DegC Heart Rate Monitored 90 bpm Respiratory Rate 18 br/min Systolic Blood Pressure Non-Invasive 101 mmHg Diastolic Blood Pressure Non-Invasive 69 mmHg 03/09/2024 15:50 EDT Temperature Oral 36.8 DegC Heart Rate Monitored 101 bpm HI Respiratory Rate 16 br/min Systolic Blood Pressure Non-Invasive 98 mmHg Diastolic Blood Pressure Non-Invasive 65 mmHg Vital Signs(last 24 hrs) Last Charted Temp Oral36.8 DegC (MAR 09 19:35) Heart Rate [id number] bpm (MAR 09 19:54) SBP96 mmHg (MAR 09 19:54) DBP60 mmHg (MAR 09 19:54) BMI24.54 (MAR 09 16:02) Measurements from flowsheet : Measurements 03/09/2024 16:02 EDT Height 157 cm Admission Weight 60.5 kg Bill[place]ley Body Weight 49.67 kg BSA Admission 1.61 Body Mass Index 24.54 kg/m2 03/09/2024 15:58 EDT Height 157 cm Admission Weight 60.5 kg [place] Body Weight 49.67 kg BSA Admission 1.61 Body Mass Index 24.54 kg/m2 Pain assessment: Pain Assessment 03/09/2024 19:35 EDT Primary Pain Location Uterine Primary Pain Intensity 9 Primary Pain Quality Contraction Primary Pain Nonverbal Response Facial grimace Pain Scale Type 0-10 Pain scale . General: Alert and oriented. Airway: Normal neck range of motion. Mallampati classification: II (soft palate, fauces, uvula visible). Head: Normocephalic. Dentition Evaluation: Intact, Own teeth. Neck: Full range of motion. Respiratory: Lungs are clear to auscultation. Cardiovascular: Normal rate. Heart Sounds: Normal. Gastrointestinal: . Musculoskeletal Normal range of motion. Integumentary: Intact, Warm, Dry. Neurologic: Alert, Oriented. Review / Management Results review: Labs (Last four charted values) WBC 8.3(MAR 09) Hgb 12.2(MAR 09) Hct L 33.7(MAR 09) Plt 235(MAR 09) , Lab results 03/09/2024 20:02 EDT Lactated Ringers Injection Begin Bag 1,000 mL mL 03/09/2024 19:57 EDT Monitoring Annotations procedure end pt laying left tilt 03/09/2024 19:54 EDT Heart Rate Monitored 85 bpm Systolic Blood Pressure Non-Invasive 96 mmHg Diastolic Blood Pressure Non-Invasive 60 mmHg 03/09/2024 19:52 EDT Monitoring Annotations test dose 195203/09/2024 19:52 EDT Heart Rate Monitored 90 bpm Systolic Blood Pressure Non-Invasive 114 mmHg Diastolic Blood Pressure Non-Invasive 78 mmHg Reason For Taking VItal Signs 15 min post start of transfusion Oxygen Saturation 98 % 03/09/2024 19:51 EDT Monitoring Annotations catheter placed at 1950 spinal dose given by BIG DATA DEVELOPER Yovanny Monitoring Annotations In Error (In Error) 03/09/2024 19:44 EDT Monitoring Annotations time out correct pt, procedure. no allergies. consent signed. pt agreed to procedure 03/09/2024 19:44 EDT Heart Rate Monitored 101 bpm HI Systolic Blood Pressure Non-Invasive 125 mmHg Diastolic Blood Pressure Non-Invasive 78 mmHg Oxygen Saturation 98 % 03/09/2024 19:41 EDT Monitoring Annotations consent signed 03/09/2024 19:40 EDT Monitoring Annotations BIG DATA DEVELOPER at bedside 03/09/2024 19:35 EDT Temperature Oral 36.8 DegC Respiratory Rate 18 br/min Primary Pain Location Uterine Primary Pain Intensity 9 Primary Pain Quality Contraction Primary Pain Nonverbal Response Facial grimace Pain Scale Type 0-10 Pain scale Forearm Right 03/09/2024 18 gauge Peripheral IV Activity: Assessed Peripheral IV Dressing Condition: Clean, Dry, Intact Peripheral IV Dressing Activity: Reinforced, Transparent dressing Peripheral IV Line Status/Patency: Continuous infusion Peripheral IV Site Condition: No complications Ambulation Ambulation in Means, Ambulation in Room Positioning Repositions self Ambulation Patient Effort Good Activity Status ADL Awake, Lights dimmed, Up ad pavithra Nurse Safety Checks q2hrs Performed 7pm-7am Standard Safety ID band on, Call device within reach, Bed in low position, Wheels locked, Upper/Half-Length side-rails up, Phone within reach, personal items within reach, Visitor at bedside, Night light, Non-Slip footwear 03/09/2024 19:33 EDT Monitoring Annotations JOSE C Mejia CNM 5/100/0 03/09/2024 19:20 EDT Monitoring Annotations pt on birthing ball 03/09/2024 19:16 EDT Monitoring Annotations report received. care assumed at this time 03/09/2024 19:00 EDT oxytocin 8 munit/min unit(s) LR Premix Diluent LR Premix Diluent mL 03/09/2024 18:55 EDT Uterine Contraction Monitoring Method External toco Uterine Contraction Frequency 2-3 Uterine Contraction Duration 40-80 Uterine Contraction Intensity, Ext Palp Moderate Uterine Resting Tone, External Soft Uterine Activity Regular contractions Baby A FHR Baseline: 120 bpm FHR Baseline Variability: Moderate variability FHR Accelerations: Present FHR Deceleration: Absent FHR Monitoring Method: External US transducer 03/09/2024 18:30 EDT Uterine Contraction Monitoring Method External toco Uterine Contraction Frequency 2-3 Uterine Contraction Duration 30-80 Uterine Contraction Intensity, Ext Palp Mild Uterine Resting Tone, External Soft Uterine Activity Regular contractions Baby A FHR Baseline: 120 bpm FHR Baseline Variability: Moderate variability FHR Accelerations: Present FHR Deceleration: Absent FHR Monitoring Method: External US transducer oxytocin 6 munit/min unit(s) LR Premix Diluent LR Premix Diluent mL 03/09/2024 18:03 EDT Temperature Oral 37 DegC Heart Rate Monitored 90 bpm Respiratory Rate 18 br/min Systolic Blood Pressure Non-Invasive 101 mmHg Diastolic Blood Pressure Non-Invasive 69 mmHg Uterine Contraction Monitoring Method External toco Uterine Contraction Frequency 1-6 Uterine Contraction Duration 30-80 Uterine Contraction Intensity, Ext Palp Mild Uterine Resting Tone, External Soft Uterine Activity Irregular contractions Baby A FHR Baseline: 120 bpm FHR Baseline Variability: Moderate variability FHR Accelerations: Present FHR Deceleration: Absent FHR Monitoring Method: External US transducer oxytocin 4 munit/min unit(s) LR Premix Diluent LR Premix Diluent mL 03/09/2024 17:53 EDT Standard Safety Safety level maintained 03/09/2024 17:42 EDT oxytocin Begin Bag 2 mL unit(s) Lactated Ringers Injection Begin Bag 1,000 mL mL LR Premix Diluent Begin Bag 1,000 mL mL 03/09/2024 17:00 EDT Uterine Contraction Monitoring Method External toco Uterine Contraction Intensity, Ext Palp Not palpable Uterine Resting Tone, External Soft Uterine Activity Not lee Baby A FHR Baseline: 120 bpm FHR Baseline Variability: Moderate variability FHR Accelerations: Present FHR Deceleration: Absent FHR Monitoring Method: External US transducer 03/09/2024 16:43 EDT Clark History and Physical OB Admission H&P 03/09/2024 16:24 EDT Cervix Dilation 4 cm Cervix Effacement 80 Station -1 Cervical Consistency Soft Cervical Position Anterior Presenting Part Vertex Vaginal Exam Performed By GERRI TREJO Cummins's Score 11 Station Calculation -1 Baby A Membrane Status: A.R.O.M. ROM Performed By: GERRI TREJO ROM Date, Time: 03/09/2024 16:24 Amniotic Fluid Amount: Small amount Amniotic Fluid Color/Descrip: Clear Amniotic Fluid Odor: None 03/09/2024 16:10 EDT Forearm Right 03/09/2024 18 gauge Peripheral IV Activity: Insert new site Peripheral IV Dressing Condition: Clean, Dry, Intact Peripheral IV Dressing Activity: Applied, Transparent dressing Peripheral IV Line Status/Patency: Flushes easily, 10ml normal saline flush, Continuous infusion, Good blood return Peripheral IV Line Care: Secured with tape Peripheral IV Site Condition: No complications Peripheral IV Equipment: Manual, Extension set, Stopcock, IV Pump, PRN Adaptor Peripheral IV Number of Attempts: 1 03/09/2024 16:07 EDT WBC 8.3 10^3/mcL RBC 4.01 10^6/mcL LOW Hgb 12.2 G/dL Hct 33.7 % LOW MCV 84.1 fL MCH 30.4 pg MCHC 36.1 G/dL RDW 13.4 % Platelet 235 10^3/mcL MPV 7.5 fL Neutrophil % 74.8 % Lymphocyte % 18.1 % Monocyte % 6.2 % Eosinophil % 0.6 % Basophil % 0.3 % Neutrophil, Absolute 6.2 10^3/mcL Lymphocyte, Absolute 1.5 10^3/mcL Monocyte, Absolute 0.5 10^3/mcL Eosinophil, Absolute 0.0 10^3/mcL Basophil, Absolute 0.0 10^3/mcL ABO/Rh Interp B POS ABSC Interp (Gel) Negative ABSC 03/09/2024 16:02 EDT Blood Type, External B positive Rubella, External Immune HIV Antibodies, External Negative Group B Strep, External Negative Group B Strep Date Performed 02/08/2024 Hepatitis B, External Negative Hepatitis B Date Performed 08/24/2023 RPR, External Nonreactive Designated Person #1 We May Share PHI [place]---[phone] Designated Person #1 Relationship Spouse Privacy Restrictions Requested None Height 157 cm Admission Weight 60.5 kg [place] Body Weight 49.67 kg BSA Admission 1.61 Body Mass Index 24.54 kg/m2 Expected Outcome Live Patient Type Inpatient Thrombosis Risk Factors (1) or post- less than 1 month Thrombosis Risk Factor Add'l Assessment NA Thrombosis Risk Score 1 Status Yes Risk Factors, Antepartum Current Preg None Vaginal bleeding No PPH Risk Low risk for hemorrhage PPH Low Risk Factors [place] , Less than 4 previous deliveries, Unscarred uterus, Absence of hemorrhage history Infant Feeding Breast milk Anesthesia/Pain Medication During Labor Epidural/Spinal Circumcision Yes Baby For Adoption No Surrogate No Discharge Physician [facility] Participant No Safe Sleep Environment for Baby Yes Safe Sleep Environment Outside Home Yes Maternal Transport No Thoughts of Harming Others - History No Thoughts of Suicide - History No Coping Effective Emotional Abuse History Denies Physical Abuse History Denies Sexual Abuse Denies Hospital Clergy to Visit Patient Verbalizes No Spiritual Needs Financial Concerns Re: Hospital/Disch No Living Situation Home independently Current Home Treatments None Professional Skilled Services None Special Services and Community Resources None Advanced Directives Yes Advance Directive Location Family instructed to bring in copy Infectious Disease Symptoms Patient states no symptoms Infectious Disease Recent Exposure No Alcohol and Drug Use No Employee of Institutional Living No Health Care Employee No History of Exposure to TB No History of Positive Chest X-Ray for TB No History of Positive TB Skin Test No Homeless No Known Immunosuppression No Recent Immigrant No Resident of Institutional Living No Bloody Sputum No Fatigue No Fever No Loss of Appetite No Night Sweats No Persistent Cough > 3 Weeks No Weight Loss No Preferred Spoken Language Luxembourger Preferred Written Language Luxembourger Teaching Evaluation Verbalizes/Nonverbally indicates understanding Safety Brochure Information Reviewed Yes Enedina Shafer Video Viewed Yes Chief Complaint IOL Accompanied by Spouse Information Given by Patient Patient's Current Physicians Manuel Trejo CNM Emergency Contact Number [place]---[phone] Mode of Transfer Private vehicle Discharge To, Anticipated Home independently Other Anticipated Needs After Discharge No Anticoagulants Taken In Past 6 Wks. No Prev Test Positive/Diagnosis w/COVID-19 No Current Quarantine/Isolated any Illness No Any Contact with Sick Animals/Birds No Traveled Anywhere in Last 30 Days No No Able To Drink Order Detail Yes Able To Sign Consents Order Detail Yes Code Status Order Detail Full code IV Order Detail Yes Dialysis Schedule Order Detail N/A Has Diabetes Order Detail No Isolation Precautions Order Detail None Nurse Collect Order Detail 1 Oxygen Order Detail No Order Detail Yes Prior Valve Replacement Order Detail No Transport Mode Order Detail Ambulatory Anesthesia/Transfusions Prior anesthesia Admission Note-Nursing Patient History OB 03/09/2024 15:58 EDT Height 157 cm Admission Weight 60.5 kg [place] Body Weight 49.67 kg BSA Admission 1.61 Body Mass Index 24.54 kg/m2 Expected Outcome Live Status Yes Movement Present Vaginal bleeding No Maternal Transport No Thoughts of Harming Others - History No Thoughts of Suicide - History No Emotional Abuse History Denies Physical Abuse History Denies Sexual Abuse Denies Advanced Directives Yes Advance Directive Location Family instructed to bring in copy Infectious Disease Symptoms Patient states no symptoms Infectious Disease Recent Exposure No Alcohol and Drug Use No Employee of Institutional Living No Health Care Employee No History of Exposure to TB No History of Positive Chest X-Ray for TB No History of Positive TB Skin Test No Homeless No Known Immunosuppression No Recent Immigrant No Resident of Institutional Living No Bloody Sputum No Fatigue No Fever No Loss of Appetite No Night Sweats No Persistent Cough > 3 Weeks No Weight Loss No Preferred Spoken Language Luxembourger Preferred Written Language Luxembourger Chief Complaint IOL Accompanied by Spouse Information Given by Patient Patient's Current Physicians Manuel Trejo CNM Emergency Contact Number [place]---[phone] Mode of Transfer Private vehicle Prev Test Positive/Diagnosis w/COVID-19 No Current Quarantine/Isolated any Illness No Any Contact with Sick Animals/Birds No Traveled Anywhere in Last 30 Days No Influenza Vaccine Need No prior receipt of vaccine Influenza Risk Factors age 6 months and older Influenza Vaccine Contraindications None Forego Influenza Vaccination Patient/Caregiver refused vaccine No Able To Drink Order Detail Yes Able To Sign Consents Order Detail Yes Code Status Order Detail Full code IV Order Detail No Dialysis Schedule Order Detail N/A Has Diabetes Order Detail No Isolation Precautions Order Detail None Nurse Collect Order Detail 0 Oxygen Order Detail No Order Detail Yes Prior Valve Replacement Order Detail No Transport Mode Order Detail Ambulatory Admission Note-Nursing Patient History OB Outpatient 03/09/2024 15:50 EDT Temperature Oral 36.8 DegC Heart Rate Monitored 101 bpm HI Respiratory Rate 16 br/min Systolic Blood Pressure Non-Invasive 98 mmHg Diastolic Blood Pressure Non-Invasive 65 mmHg Baby A Heart Tone: 120 Standard Safety ID band on, Call device within reach, Bed in low position, Wheels locked, Upper/Half-Length side-rails up, Phone within reach, personal items within reach, Non-Slip footwear . Assessment and Plan [place] [employer]esthesiologists (ASA) physical status classification: Class II. Anesthetic Preoperative Plan Premedication: None. Anesthetic technique: Epidural. Induction. Maintenance airway: Mask. Regional: Epidural. Postoperative pain management: Per surgeon. Risks discussed: nausea, vomiting, headache, sore throat, dental injury, hypotension, allergic reaction, serious complications. Informed consent: signed by patient. Digitally Signed by KEMI JOHNS on 03/09/2024 08:11 PM [facility]04-12-2024 Note Reason for Visit OB IOL LMP/EGA/BUSHRA Gestational Age (EGA) and BUSHRA * Note: EGA calculated as of 03/09/2024 BUSHRA: 03/08/2024 EGA*: 40 weeks 1 day Type: Authoritative Method Date: 02/19/2024 Method: Unknown (02/19/2024) Confirmation: Confirmed Description: -- Comments: -- Entered by: HARDY Marshall on 02/19/2024 Other BUSHRA Calculations for this : No additional BUSHRA calculations have been recorded for this History of Present Illness History and Physical/Admit Note: S: Patient is a 33 year old G 3P1 female at 40.1 wks GA with EDC of confirmed by first trimester ultrasound who present to [facility] for IOL due to AMA with advanced cervical dilation. Denies LOF. Reports +Bloody show for the last few days. Good movement complications include: AMA, hypothyroidism, h/o partial molar in 2021 OB History History (1,0,1,1) # 1 Baby 1 Outcome Date: 02/04/2020 Outcome: Live Outcome or Result: Vaginal Gender: -- Gest Age: 41 weeks Wt: -- Hospital: -- [facility] Labor: -- Child's Name: -- Baby's Father: -- # 2 Baby 1 Outcome Date: 03/17/2022 Outcome: Outcome or Result: Spontaneous with D&C Gender: -- Gest Age: 17 weeks Wt: -- Hospital: [facility] Labor: -- Child's Name: -- Baby's Father: -- Review of Systems Constitutional: Normal weight gain of Eyes: No visual changes Ears, Nose, Mouth & Throat: No loss of hearing, taste or smell Cardiovascular: No chest pain or palpitations Gastrointestinal: No N/V/D Genitourinary: No dysuria Musculoskeletal: No limited ROM Skin: No rashes or lesions Neurological: No LARA Psychiatric: No altered mental state Obstetric Exam Cervix Dilation: 4 cm (03/09/24 16:24:00) Cervix Effacement: 80 (03/09/24 16:24:00) Station: -1 (03/09/24 16:24:00) Baby A - Membrane Status: A.R.O.M. (03/09/24 16:24:00) Cervix Dilation: 4 cm (03/09/24 16:24:00) Cervix Effacement: 80 (03/09/24 16:24:00) Station: -1 (03/09/24 16:24:00) Discussed options. Pt prefers AROM first to see if labor will kick in. Reviewed risks/benefits of AROM. Pt agreeable to procedure. AROM done for clear fluid at 1624 Cummins's Score11 Physical Exam Vitals & Measurements T: 36.8 C (Oral) HR: 101(Monitored) RR: 16 BP: 98/65 HT: 157 cm WT: 60.5 kg BMI: 24.54 Gen: alert, awake, in no acute distress; Coping well Lungs: clear, no wheezes or crackles, equal breath sounds. Heart: RRR without murmur Abd: Soft and nontender, gravid uterus Ext: Pedal edema Labs Blood Type, External: B positive Rubella, External: Immune HIV Antibodies, External: Negative Group B Strep, External: Negative Group B Strep Date Performed: 02/08/24 Hepatitis B, External: Negative RPR, External: Nonreactive Chlamydia, External: Negative Chlamydia, External Date Performed: 08/24/23 Gonorrhea, External: Negative Gonorrhea, External Date Performed: 08/24/23 Lab Results 36hr Labs 03/09 1607 Hct 33.7 L Hgb 12.2 MCH 30.4 MCHC 36.1 MCV 84.1 MPV 7.5 Platelet 235 RBC 4.01 L RDW 13.4 WBC 8.3 Lymphocyte % 18.1 Monocyte % 6.2 Neutrophil % 74.8 Eosinophil % 0.6 Basophil % 0.3 Neutrophil, Absolute 6.2 Lymphocyte, Absolute 1.5 Monocyte, Absolute 0.5 Eosinophil, Absolute 0.0 Basophil, Absolute 0.0 03/09 1602 Assessment/Plan Assessment 1. IOL 2. GBS NEG Plan 1. Admit to labor and delivery 2. IV with LR at 125ml/hour 3. Continuous monitoring 4. No GBS prophylaxis needed 5. Dr. Vergara licensed vocational nurse for backup if needed 6. PT desires AROM first, will plan pitocin augmentation if labor does not kick in Problem List/Past Medical History Ongoing Historical Procedure/Surgical History Vertebral artery: 2015 LASIK - laser assisted in situ keratomileusis: 2014 Craniosynostosis Dilatation and curettage: routine Medications Inpatient Bicitra, 30 mL, Oral, AsDirected, PRN Brethine, 0.25 mg= 0.25 mL, Subcutaneous, AsDirected, PRN Brethine, 0.25 mg= 0.25 mL, Subcutaneous, AsDirected, PRN Cytotec, 1000 mcg= 5 tab(s), Rectal, Once, PRN Hemabate, 250 mcg= 1 mL, Intramuscular, Once, PRN LR 1,000 mL, 1000 mL, Intravenous LR 500 mL Bolus, 500 mL, IV Bolus, AsDirected, PRN Methergine, 0.2 mg= 1 mL, Intramuscular, Once, PRN Oxytocin for IV (mL/hr) 20 unit(s) + LR Premix Diluent 1,000 mL Oxytocin for IV (munit/min) 20 unit(s) [2 munit/min] + LR Premix Diluent 1,000 mL Pitocin, 20 unit(s)= 2 mL, Intramuscular, Once, PRN tranexamic acid 1 g / 100 mL 0.7% NaCl PMX, 1 gram(s)= 100 mL, IV Piggyback, AsDirected, PRN Xylocaine HCl 1% injectable solution, 20 mg= 2 mL, Perineum, AsDirected, PRN Zofran, 4 mg= 2 mL, IV Push, q4h, PRN Home VIDEO AND SOUND RECORDER Thyroid 30 mg oral tablet Multivitamins, 1 tab(s), Oral, qDay Allergies No Known Medication Allergies Social History Alcohol Use: Socially when not ., 02/19/2024 Home/Environment Living situation: Home/Independent., 02/19/2024 Nutrition/Health Type of diet: Regular., 02/19/2024 Sexual Sexually active: Yes., 02/19/2024 Substance Abuse Use: Never., 02/19/2024 Tobacco Nicotine Use: Never (less than 100 in lifetime)., 02/19/2024 Family History Brain tumor: Father. Cancer: Mother. Hypothyroidism: Mother. Myocardial infarction: Father. Sister: History is negative Brother: History is negative Daughter: History is negative Sister: History is negative Digitally Signed by GERRI TREJO on 03/09/2024 04:55 PM Digitally Signed by FRACISCO VERGARA DO on 03/10/2024 08:57 AM [facility]04-12-2024 Evaluation + Plan noteExtracted from: Title:OB Admission H&P Author:GERRI TREJO Date:03/09/24 Assessment 1. IOL 2. GBS NEG Plan 1. Admit to labor and delivery 2. IV with LR at 125ml/hour 3. Continuous monitoring 4. No GBS prophylaxis needed 5. Dr. Vergara licensed vocational nurse for backup if needed 6. PT desires AROM first, will plan pitocin augmentation if labor does not kick in Future Scheduled Tests Radiology* US OB > 14 weeks 08/12/23 [facility] 03-24-2024 Hospital Discharge instructions Patient Education 02/19/2024 10:52:07 [facility] Outpatient Instructions ([facility]) [facility] OUT[facility]IENT HOME-GOING INSTRUCTIONS _X_ You are to follow up with your physician on 02/24/2024 as scheduled ACTIVITY ___ Bedrest _X__Activity as tolerated ___ No work/school for ___ days. ___Other PRESCRIPTION GIVEN ___Yes NAUSEA/VOMITING ___ Take small, frequent amounts of clear liquids. Avoid fruit juices and milk. ___ Increase fluid intake to a minimum of 8 ounces of fluid every hour while awake. ___ Soft diet. Rice, crackers, bananas, Jell-O, cooked carrots, applesauce. ___ Screven diet. Avoid caffeine, chocolate, alcohol, spiced/greasy foods. URINARY TRACT INFECTION ___ Drink 8-12 glasses of water every day. ___ Urinate frequently; do not limit fluids to reduce frequency of urination. ___ Call your physician if burning and frequency with urination returns after taking all your medication. ___ Call your physician if you have a temperature of 100.4 degrees Fahrenheit or higher. ___ Wipe from front to back. SIGNS OF PRE-ECLAMPSIA ___ Severe heartburn. ___ Persistent headache not relieved by Tylenol. ___ Increased in swelling of face, hands and feet. ___ Blurred vision, double vision, or spots in the eyes. ___ Persistent vomiting. ___ *Convulsions or seizures. LABOR ___ Restrict activity. ___ Drink 8-12 glasses of water every day. ___ Urinate frequently ___ Pelvic rest. No sexual intercourse/ Call your physician if you experience: ___ Increase in vaginal discharge, leaking fluid, or vaginal bleeding. ___ More than 4, 5, or 6 contractions in one hour. ___ Burning and frequency with urination. DECREASED MOVEMENT ___ Lie down on your left side, drink some fluids and relax. Count the movements. You need tohave 10 movements in 2 hours. ___ If you do not feel the 10 movements, call your physician. OTHER _X__ After an exam you may experience some spotting or discharge. As long as it is not bright red and heavy like a period or continues to leak as if your water broke, it is to be expected. ___ LABOR Call your physician if you experience: _X__ Painful uterine contractions every _5__ minutes for _1__ hours. _X__A gush or continuous trickle of watery discharge. COME TO THE HOSPITAL AND CALL PHYSICIAN IF: _X__ Your abdomen feels continually firm. _X__ *Bleeding is bright red and enough to saturate a pad in one hour or less. *Call 911 or go to the nearest Emergency Room for assistance. Form [id number] D: 11/05 Follow Up Care 02/19/2024 09:57:20 With:GERRI TREJO Address: DR [address] [place] [id number] [id number]- [phone] When:02/24/2024 12:45:00 [facility] 03-19-2024 NoteHNO ID: [id number] Author: ILIA FREGOSO PA Service: ? Author Type: Physician Artificial Fly Tier Type: Progress Notes Filed: 02/14/2024 09:46 Note Text: This note was created using Dibspaceriter. Subjective Pippa Means is a 33 year old female. HPI 33-year-old female 37 weeks presents for sinus congestion, sinus pressure, sinus pain, fatigue for the last week. Patient states that she started getting nasal congestion about a week ago. She states that now feels like it is moved into her sinuses. She does have history of sinus infections. She states that she has not had a cough. No fevers. No vomiting or diarrhea. She is still able to eat and drink. She has normal movement. No vaginal bleeding or discharge. No other complaint. 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 MEDICATIONS Cfwgmxts-Pw-Jpa-Fe-FA ( VITAMIN) tab Take 1 tablet by mouth once daily. amoxicillin-clavulanate potassium (AUGMENTIN) 875-125 mg per tablet Take 1 tablet by mouth two times a day for 5 days. escitalopram oxalate (LEXAPRO) 10 mg tablet Take 10 mg by mouth once daily. (Patient not taking: Reported on 02/14/2024) MEDICATION, NON-DATABASE Collagen Powder FAMILY HISTORY Problem Relation Age of Onset Cancer Mother lymphoma Heart Father other (benign brain tumor) Father None Sister None Sister None Brother other (other) Maternal Grandmother Parkinson?s Disease Maternal Grandfather Macular Degen Paternal Grandmother other (ALS) Paternal Grandfather No Known Problems Daughter Social History Tobacco Use Smoking status: Never Smokeless tobacco: Never Vaping Use Vaping Use: Never used Substance Use Topics Alcohol use: Not Currently Comment: rare Drug use: No Review of Systems Constitutional: Positive for fatigue. Negative for chills and fever. HENT: Positive for congestion, sinus pressure and sinus pain. Negative for ear pain and sore throat. Respiratory: Negative for cough and shortness of breath. Cardiovascular: Negative for chest pain. Gastrointestinal: Negative for diarrhea and vomiting. Objective BP 94/64 Pulse (!) 124 Temp 36.7 ?C (98 ?F) (Tympanic) Resp 18 Wt 61.8 kg (136 lb 3.9 oz) LMP 05/03/2023 (Exact Date) SpO2 100% BMI 24.13 kg/m? Physical Exam Vitals and nursing note reviewed. Constitutional: General: She is not in acute distress. Appearance: Normal appearance. She is not toxic-appearing. HENT: Right Ear: Tympanic membrane and ear canal normal. Left Ear: Tympanic membrane and ear canal normal. Nose: Mucosal edema and congestion present. Right Sinus: Maxillary sinus tenderness present. Left Sinus: Maxillary sinus tenderness present. Mouth/Throat: Mouth: Mucous membranes are moist. Pharynx: No oropharyngeal exudate or posterior oropharyngeal erythema. Eyes: Conjunctiva/sclera: Conjunctivae normal. Cardiovascular: Rate and Rhythm: Regular rhythm. Tachycardia present. Pulmonary: Effort: Pulmonary effort is normal. Breath sounds: Normal breath sounds. Neurological: Mental Status: She is alert. Assessment and Plan ASSESSMENT/PLAN: 1. Bacterial sinusitis - ICD9: 473.9, 041.9, ICD10: J32.9, B96.89 - Will begin treatment with Augmentin 875 mg PO BID for 5 days. -Given patient list of medications that are safe in to take for symptoms. -Blood pressure is 94/64. Patient states her blood pressure is always on the low side. She is slightly tachycardic, but heart rate did come down on exam to 110. Pulse ox normal. Afebrile. -Vies patient if she gets any chest pain, shortness of breath, go to ER. She understands. - Supportive care with plenty of fluids, rest, and analgesia prn. Diagnosis and treatment plan were discussed and questions were answered to the patient's satisfaction. Pt acknowledged understanding of concepts and follow up plan. Specific signs and symptoms that would indicate the need for higher level of care were discussed in detail warranting prompt ER evaluation. Ilia Fregoso [facility]03-19-2024 History of Present illness Narrative* Ilia Fregoso, PA - 02/14/2024 9:41 AM EDT This note was created using Dibspaceriter. Subjective Pippa Means is a 33 year old female. HPI 33-year-old female 37 weeks presents for sinus congestion, sinus pressure, sinus pain,fatigue for the last week. Patient states that she started getting nasal congestion about a week ago. She states that now feels like it is moved into her sinuses. She does have history of sinus infections. She states that she has not had a cough. No fevers. No vomiting or diarrhea. She is still able to eat and drink. She has normal movement. No vaginal bleeding or discharge. No other complaint. PAST MEDICAL HISTORY Diagnosis Date Craniostenosis anxiety anxiety Stroke, vertebral artery (HCC) 09/08/2016 Right vertebral artery disection Uterine fibroid seen on ultrasound 09/06/2019 PAST SURGICAL HISTORY Procedure Laterality Date INSERTION OF IUD 06/29/2017 paragard-removed LASIK 2015 both eyes PAST SURGICAL HISTORY OF Craniostenosis SUCTION D & C 03/19/2022 17 weeks by GA, 11w3 d CRL, ALLERGIES Patient has no known allergies. MEDICATIONS Ghdaqlcd-It-Sgc-Fe-FA ( VITAMIN) tab Take 1 tablet by mouth once daily. amoxicillin-clavulanate potassium (AUGMENTIN) 875-125 mg per tablet Take 1 tablet by mouth two times a day for 5 days. escitalopram oxalate (LEXAPRO) 10 mg tablet Take 10 mg by mouth once daily. (Patient not taking: Reported on 02/14/2024) MEDICATION, NON-DATABASE Collagen Powder FAMILY HISTORY Problem Relation Age of Onset Cancer Mother lymphoma Heart Father other (benign brain tumor) Father None Sister None Sister None Brother other (other) Maternal Grandmother Parkinson s Disease Maternal Grandfather Macular Degen Paternal Grandmother other (ALS) Paternal Grandfather No Known Problems Daughter Social History Tobacco Use Smoking status: Never Smokeless tobacco: Never Vaping Use Vaping Use: Never used Substance Use Topics Alcohol use: Not Currently Comment: rare Drug use: No Review of Systems Constitutional: Positive for fatigue. Negative for chills and fever. HENT: Positive for congestion, sinus pressure and sinus pain. Negative for ear pain and sore throat. Respiratory: Negative for cough and shortness of breath. Cardiovascular: Negative for chest pain. Gastrointestinal: Negative for diarrhea and vomiting. Objective BP 94/64 Pulse (!) 124 Temp 36.7 C (98 F) (Tympanic) Resp 18 Wt 61.8 kg (136 lb 3.9 oz) LMP 05/03/2023 (Exact Date) SpO2 100% BMI 24.13 kg/m Physical Exam Vitals and nursing note reviewed. Constitutional: General: She is not in acute distress. Appearance: Normal appearance. She is not toxic-appearing. HENT: Right Ear: Tympanic membrane and ear canal normal. Left Ear: Tympanic membrane and ear canal normal. Nose: Mucosal edema and congestion present. Right Sinus: Maxillary sinus tenderness present. Left Sinus: Maxillary sinus tenderness present. Mouth/Throat: Mouth: Mucous membranes are moist. Pharynx: No oropharyngeal exudate or posterior oropharyngeal erythema. Eyes: Conjunctiva/sclera: Conjunctivae normal. Cardiovascular: Rate and Rhythm: Regular rhythm. Tachycardia present. Pulmonary: Effort: Pulmonary effort is normal. Breath sounds: Normal breath sounds. Neurological: Mental Status: She is alert. Assessment and Plan ASSESSMENT/PLAN: 1. Bacterial sinusitis - ICD9: 473.9, 041.9, ICD10: J32.9, B96.89 - Will begin treatment with Augmentin 875 mg PO BID for 5 days. -Given patient list of medications that are safe in to take for symptoms. -Blood pressure is 94/64. Patient states her blood pressure is always on the low side. She is slightly tachycardic, but heart rate did come down on exam to 110. Pulse ox normal. Afebrile. -Vies patient if she gets any chest pain, shortness of breath, go to ER. She understands. - Supportive care with plenty of fluids, rest, and analgesia prn. Diagnosis and treatment plan were discussed and questions were answered to the patient's satisfaction. Pt acknowledged understanding of concepts and follow up plan. Specific signs and symptoms that would indicate the need for higher level of care were discussed in detail warranting prompt ER evaluation. PHU [place] [facility] Evaluation + Plan note Future Scheduled Tests Radiology* US OB > 14 weeks 08/12/23 [facility] 06-21-2023 Miscellaneous Notes* Telephone Encounter - Melvi López RN - 05/18/2023 11:21 AM EDT I called patient and she wishes to proceed with semen analysis at [place] as discussed at her visit on 02/[address] Dasilva. She is asking for someone to sign the order prior to Tuesday when Dr Dasilvais due back in office. Order signed and faxed. 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 Currently trying to conceive since last September. Tracking cycles which are aroundevery 31 days. LMP was 05/03/23. Started cramping days before cycle and continued after cycle with isunusual for patient. Last cycle was normal in length and amount of bleeding. Just concerned over the extra cramping. Denies any pelvic pain. Denies any current pain or cramping. Cramping possibly dueto constipation. Currently having increased fatigue, body aches, leg cramps and overall malaise which started approximately 4 months ago. Currently having labs drawn including thyroid, autoimmune etc. By PCP. REVIEW OF SYSTEMS Abdomen: No bloating, early satiety, indigestion, or increased flatulence. No abdominal pain, nausea, vomiting, diarrhea, or constipation. Bladder: No dysuria, gross hematuria, urinary frequency, urinary urgency, or incontinence. Breast: No breast lumps, nipple d/c, overlying skin changes, redness or skin retraction. Expanded ROS: N/A Allergies and current medication updated:Yes EXAM: BP 108/60 Wt 107 lb 3.2 oz (48.6kg) LMP 05/03/2023 GENERAL: pleasant, female in no apparent distress HEENT: Normocephalic and atraumatic NECK: Supple and full range of motion DERMATOLOGY: Normal and without lesions BREAST: deferred CHEST: Normal inspiratory effort ABDOMEN: soft, non-tender, and no masses PELVIC: deferred BIMANUAL: deferred NEURO: alert and oriented x3,exam grossly non-focal EXTREMITIES: normal ASSESSMENT/PLAN: 1. Generalized abdominal cramping - ICD9: 789.07, ICD10: R10.84 (primary diagnosis) 2. Patient desires - ICD9: V26.9, ICD10: Z31.9 - Suspect cramping due to constipation/ stomach issues - Continue to track cycles - Labs through PCP - May desire referral to endocrinology if labs negative - Continue vitamin - RTO- PRN Terra Medrano APRN.CNM documented in this encounter[facility] [place] History of Present illness Narrative* Loree Dasilva MD - 10/08/2022 9:00 AM EST Pippa presents for removal of IUD due to desire for . UNIVERSAL PROTOCOL / SAFETY CHECKLIST Procedure to be Performed: Intrauterine Device (IUD) Removal Sign In: A Moment of CARE was completed. Personnel directly involved with the procedure wore the appropriate PPE (Personal Protective Equipment). Patient/Surrogate Stated/Verified: PATIENT VERIFIED(optional for EMERGENT procedures): Patient name, Date of , Relevant allergies, and The intended procedure Time Out Communication: Intended patient and procedure match the source documents. Consent documented and matches the intended procedure. No implant(s) inserted. Sign Out: SIGN OUT (optional for EMERGENT procedures): No specimen collected. All instruments, equipment, possible retained foreign bodies accounted for. Post-procedure follow-up management communicated and Plan of Care Visit completed when applicable. PROCEDURE: Speculum placed in vagina, IUD string visualized and grasped with ring forceps. ASSESSMENT/PLAN: IUD removed without difficulty, intact, and patient tolerated procedure well. Contraception plans: none Reviewed pre-conception guidelines including folic acid supplementation, optimal timing of intercourse, avoidance of smoking, alcohol, exposure to environmental chemicals and need for evaluation if not within 12 months. Loree Dasilva MD Pippa is a 32 year old who presents for an annual gynecologic exam with complaints, somc cramping she associates w/ IUD. Doxy helped but still ahs some. . Menses: cycles every 28 days and 7 days of flow. Contraception: IUD HPV vaccine: No Last Pap: 09/29/2018 normal HPV: 09/25/2018 negative History of abnormal pap: No Last mammogram: never Sexually active: Yes OB History T1 L1 SAB0 IAB0 Ectopic0 Multiple0 Live Births1 Comment: 03/19 molar , D&C 11 week size 17 weeks by dates. 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 History Comments: Sexual Activity: Yes; Male Contraception: No contraception data on record PAST MEDICAL HISTORY Diagnosis Date Craniostenosis anxiety anxiety Stroke, vertebral artery (HCC) 09/08/2016 Right vertebral artery disection Uterine fibroid seen on ultrasound 09/06/2019 PAST SURGICAL HISTORY Procedure Laterality Date INSERTION OF IUD 06/29/2017 paragard-removed LASIK 2015 both eyes PAST SURGICAL HISTORY OF Craniostenosis SUCTION D & C 03/19/2022 17 weeks by GA, 11w3 d CRL, FAMILY HISTORY Problem Relation Age of Onset Cancer Mother lymphoma Heart Father other (benign brain tumor) Father None Sister None Sister None Brother other (other) Maternal Grandmother Parkinson s Disease Maternal Grandfather Macular Degen Paternal Grandmother other (ALS) Paternal Grandfather No Known Problems Daughter SOCIAL HISTORY Social History Tobacco Use Smoking status: Never Smokeless tobacco: Never Vaping Use Vaping Use: Never used Substance Use Topics Alcohol use: Not Currently Comment: rare Drug use: No REVIEW OF SYSTEMS Abdomen: No abdominal pain, nausea, vomiting, diarrhea, or constipation. No bloating, early satiety, indigestion, or increased flatulence. Bladder: No dysuria, gross hematuria, urinary frequency, urinary urgency, or incontinence. Breast: No breast lumps, nipple d/c, overlying skin changes, redness or skin retraction. Allergies and current medication updated:Yes EXAM: BP 92/62 Ht 5' 3 (1.60m) Wt 104 lb 9.6 oz (47.4kg) LMP 09/23/2022 BMI 18.53 kg/(m^2). GENERAL: pleasant, female in no apparent distress HEENT: Normocephalic, atraumatic, mucus membranes moist, and no lesions NECK: Supple, full range of motion, no adenopathy, and thyroid normal DERMATOLOGY: Normal, without lesions, non-icteric, and non-hirsute BREAST: soft, non-tender, symmetric, no dominant mass, normal nipple-areolar complex, no lymphadenopathy, and no nipple discharge CHEST: Normal inspiratory effort ABDOMEN: soft, non-tender, and no masses PELVIC: external genitalia normal, normal Bartholin's glands, urethra, Scalp Level's glands, no vulvar lesions, no cervical lesions, good vaginal support, physiologic discharge present, normal appearing perineal body and perianal region BIMANUAL: uterus normal size, shape and consistency, no adnexal masses, and non-tender RECTOVAGINAL: deferred. NEURO: alert and oriented x3,exam grossly non-focal EXTREMITIES: normal ASSESSMENT/PLAN: 1) Health maintenance: Pap done with HPV. Mammogram starting age 40. 2) Contraception: none. Contraceptive options reviewed and information provided. 3) STD screening: Declined STD check. 4) Follow up one year or sooner as needed Loree L Brown, MD documented in this encounterSelect [facility] [place]08-24-[facility] History of Present illness Narrative* Loree Dasilva MD - 07/21/2022 9:38 AM EDT VIRTUAL VISIT PROGRESS NOTE This is a virtual visit using Prolebrity video visit. It required patient-provider interaction for themedical decision making as documented below. Pippa Means is a 32 year old female seen for complaint of abnormal uterine bleeding. Has ParaGard IUD. Status post. D&C for 11 weeks size embryo with a molar in February 2022. Quantitative hCG levels have been followed and have been negative. Patient has a ParaGard IUD for contraception. She has been bleeding about 2 weeks a months and has significant cramping. She also notes some increased cystic acne along her jawline and on her neck. No hirsutism. She is here to discuss a plan and ultrasound results. HISTORY REVIEWED (electronic chart updated): PAST MEDICAL HISTORY Diagnosis Date Craniostenosis anxiety anxiety Stroke, vertebral artery (HCC) 09/08/2016 Right vertebral artery disection Uterine fibroid seen on ultrasound 09/06/2019 PAST SURGICAL HISTORY Procedure Laterality Date INSERTION OF IUD 06/29/2017 paragard-removed LASIK 2015 both eyes PAST SURGICAL HISTORY OF Craniostenosis SUCTION D & C 03/19/2022 17 weeks by GA, 11w3 d CRL, FAMILY HISTORY Problem Relation Age of Onset Cancer Mother lymphoma Heart Father other (benign brain tumor) Father None Sister None Sister None Brother other (other) Maternal Grandmother Parkinson s Disease Maternal Grandfather Macular Degen Paternal Grandmother other (ALS) Paternal Grandfather No Known Problems Daughter Social History Tobacco Use Smoking status: Never Smokeless tobacco: Never Vaping Use Vaping Use: Never used Substance Use Topics Alcohol use: Not Currently Comment: rare Drug use: No Current Outpatient Medications Medication Sig copper (PARAGARD) 380 square mm intrauterine device 1 Intra Uterine Device by INTRAUTERINE route asdirected. pyridoxine HCl, vitamin B6, (VITAMIN B-6 ORAL) Take by mouth. doxylamine succinate (UNISOM, DOXYLAMINE, ORAL) Take by mouth. ondansetron (ZOFRAN) 8 mg tablet Take 1 tablet by mouth every 8 hours as needed for nausea/vomiting. 1/2 TO ONE PO Ueloxcaf-Tj-Iex-Fe-FA ( VITAMIN) tab Take 1 tablet by mouth once daily. No current facility-administered medications for this visit. ALLERGIES No Known Allergies PHYSICAL EXAMINATION: VIDEO EXAM: (if completed, performed via video enabled technology) GENERAL: alert and appropriate, in no distress, well-hydrated, well nourished, and happy, smiling, interactive ASSESSMENT: Cystic acne, abnormal uterine bleeding, ParaGard IUD in place PLAN: I discussed with the patient that the IUD appears to be in proper placement. She has a submucosal fibroid but its been there for some time. That does not seem to be the cause of her bleeding. Discussed with her that though the IUD is in the right place, it still could be the cause of her prolonged bleeding and her cramping. We will try doxycycline it may help with the acne as well as the abnormalbleeding and discomfort if there is a chronic endometritis. Check some hormone levels, may considerAldactone to help decrease testosterone levels. Discussed with the patient if she wants IUD out to contact the office. She is considering another at the end of this year beginning of 2022. There are no Patient Instructions on file for this visit. Loree Dasilva MD documented in this encounterSelect [facility] [place]08-11-2022 Miscellaneous Notes* Telephone Encounter - Antonina Andrews RN - 07/08/2022 9:13 AM EDT Order attached to appointment. Antonina Andrews RN * Telephone Encounter - Terra Medrano APRN.CNM - 07/08/2022 8:46 AM EDT Orders signed. Terra Medrano APRN.CNM * Telephone Encounter - Antonina Andrews RN - 07/08/2022 8:17 AM EDT RR patient calling with continued pelvic pain. Per 06/28 phone note RR recommended pelvic US to checkIUD placement if patient's bleeding and cramping continued. Menses stopped two days ago, but continues to have cramping. Now in her lower back and abdomen. Patient is scheduled today for US at 0930. Please file pending order. We will then attach to her appointment. Thank you. Antonina Andrews RN documented in this encounterSelect [facility] [place]08-08-2022 Miscellaneous Notes* Telephone Encounter - Jayshree Frank LPN - 07/05/2022 10:58 AM EDT Please see [employer] message and further advise. Jayshree Frank LPN documented in this encounterSelect [facility] [place]08-02-2022 Miscellaneous Notes* Telephone Encounter - Alla Navarrete RN - 06/29/2022 10:16 AM EDT Patient notified. Alla Navarrete RN * Telephone Encounter - Loree Dasilva MD - 06/29/2022 10:15 AM EDT Agree w/ below. If continues this month would get US to check it. Thanks. Loere Dasilva MD * Telephone Encounter - Melvi López RN - 06/28/2022 2:39 PM EDT Had IUD placed 05/25/2022. Since then has bleeding 2-3 days every 2 weeks since then. Changes a regular tampon every 3 hours -saturating tampon the first 2 days-then it lightens.Has cramping intermittently even when she is not bleeding , more on the right side. Rates pain a 4 on pain scale-easily does ADL. Ibuprofen helps. Denies fever or abnormal discharge otherwise. Had Covid 2 weeks ago. Reassured patient.Discussed bleeding patterns(may have irregular bleeding during the first 3 months of use) after IUD and also that Covid can affect it as well. Patient advised to call/come in if pain or bleeding increase, the development of fever or abnormal discharge or PRN problems. Patient never madean appointment for the IUD string check/follow up. She states she can still fell the string present. documented in this encounterSelect [facility] [place]07-22-2022 Miscellaneous Notes* Telephone Encounter - Ulysses Kang RN - 06/18/2022 5:04 PM EDT Patient notified and voiced understanding. Will repeat level next week. Ulyssse Kang RN * Telephone Encounter - Jeanne Hayes APRN.CNM - 06/18/2022 12:15 PM EDT HCG quant is 3. Patient needs weekly draws until level is 0 then monthly x3 months. Would recommendfollow-up hCG quant in 1 week. Jeanne Hayes APRN.CNM * Telephone Encounter - Ulysses Kang RN - 06/18/2022 9:34 AM EDT Hcg Quant result of 3 done at [facility] on 06/17/22. Report to MAURO to review in RR's absence. Patient had molar , this is first negative level. Patient will need to be notified of when to repeat level. Ulyssse Kang RN documented in this encounterSelect [facility] [place]07-11-2022 Miscellaneous Notes* Telephone Encounter - Loree Dasilva MD - 06/07/2022 11:37 AM EDT Ok thanks for letting me know. Next week at [facility] is fine. Loree Dasilva MD * Telephone Encounter - Ulysses Kang RN - 06/07/2022 10:06 AM EDT Patient called back and notified of results and instructions. 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 Patient did want provide to know that she will be unable to get lab drawn this week as she is in quarantine for COVID. FYI. Ulysses Kang RN * Telephone Encounter - Alla Navarrete RN - 06/07/2022 9:40 AM EDT Left message for patient to call office. Will need new order once patient says what facility she'llgo to this week. Alla Navarrete RN * Telephone Encounter - Loree Dasilva MD - 06/07/2022 8:48 AM EDT Please let her know quant is4. At lab, this would be non. At [facility] lab 1-3 is non.I would repeat next week to make sure stable or see if it will go below 4, consider doing at our lab perhaps. then repeat in 1 month. Loree Dasilva MD * Telephone Encounter - Alla Navarrete RN - 06/07/2022 8:33 AM EDT Hcg quant result of 4 done at [facility] on 06/04/22. Report to RR to review. Alla Navarrete RN documented in this encounterSelect [facility] [place]06-27-2022 Miscellaneous Notes* Telephone Encounter - Antonina Andrews RN - 05/24/2022 8:38 AM EDT Patient notified to have another HCG done this week. Antonina Andrews RN * Telephone Encounter - Loree Dasilva MD - 05/24/2022 8:30 AM EDT Wait for this weeks. Still trending down. Thanks. Loree Dasilva MD * Telephone Encounter - Melvi López RN - 05/21/2022 9:15 AM EDT Received quant HCG of 7 from [facility]. Result in RR office for review on Tuesday documented in this encounterSelect Medical [facility] [place]06-08-2022 Instructions* Patient Instructions* Desire George Ma - 05/05/2022 1:50 PM EDT POST IUD INSTRUCTIONS You may have irregular bleeding during the first 3 months of use. You may have mild-severe cramping for the next 48 hours. You may use over the counter medication (Motrin, Tylenol) as needed. Your IUD must be removed or replaced based on the following table: IUD Type Removed or replaced within: Muna 3 years Kyleena 5 years Mirena 7 years Paragard 10 years Call my office for signs/symptoms of infection such as severe cramping, fever, or unusual bleeding. Check for string placement as instructed by your doctor. If you have any additional questions, please contact the office. documented in this encounterSelect [facility] [place]06-08-2022 History of Present illness Narrative* Loree Dasilva MD - 05/05/2022 1:47 PM EDT Pippa presents today for IUD insertion for contraception. Patient's last menstrual period was 11/18/2021 (exact date). GC/chlamydia: Not done: no risk factors and/or patient declines screening test: negative Side effects including irregular bleeding were discussed with the patient. The patient understands that it should be removed in 10 years or sooner if the patient desires a . IUD source: office provided IUD lot #: [id number] Exp date: 12/28/2027 UNIVERSAL PROTOCOL / SAFETY CHECKLIST Procedure to be Performed: Paragard IUD insertion Sign In: A Moment of CARE was completed. Personnel directly involved with the procedure wore the appropriate PPE (Personal Protective Equipment). Patient/Surrogate Stated/Verified: PATIENT VERIFIED(optional for EMERGENT procedures): Patient name, Date of , Relevant allergies and The intended procedure Time Out Communication: Intended patient and procedure match the source documents. Consent documented and matches the intended procedure. Implant(s) inserted: Correct implant(s) confirmed including size and side. and Expiration date(s) reviewed. Sign Out: SIGN OUT (optional for EMERGENT procedures): No specimen collected. All instruments, equipment, possible retained foreign bodies accounted for. Post-procedure follow-up management communicated and Plan of Care Visit completed when applicable. Loree Dasilva M.D. The uterus sounded to 8 cm and the uterus is Anteverted.. After prepping the cervix with betadine and using sterile technique, the ParaGard IUD was inserted without difficulty and the string was cut to 2cm from the external os of the cervix. Patient tolerated procedure well. PLAN: Patient was advised to observe for signs and symptoms of infection including but not limited to fever, malodorous vaginal discharge and/or pain. The patient was told to check the string monthlyfor accurate placement. Bleeding expectations were reviewed. Follow up quants for molar Follow up after next menses for string check. Loree Dasilva MD documented in this encounterSelect [facility] [place]06-06-2022 Miscellaneous Notes* Telephone Encounter - Jayshree Frank LPN - 05/03/2022 11:15 AM EDT Pt notified and voiced understanding. Jayshree Frank LPN * Telephone Encounter - Loree Dasilva MD - 05/03/2022 10:37 AM EDT Please notify her that her HCG is down to 17. Repeat it next week and we are getting close to that non' cut off. Loree Dasilva MD documented in this encounterSelect Medical [facility] [place]05-27-2022 Miscellaneous Notes* Telephone Encounter - Ulysses Kang RN - 04/23/2022 12:05 PM EDT Patient notified of results, verbalizes understanding of instructions. Lab order at [facility]. Ulysses Kang RN * Telephone Encounter - Marine Ahuja MD - 04/23/2022 11:54 AM EDT Patient needs weekly draws until zero then monthly x 3 months to ensure it is negative due to molarpregnancy. * Telephone Encounter - Ulysses Kang RN - 04/23/2022 10:23 AM EDT HCG Quant result received from [facility] On 04/22/22 patients result was 27. This is decreased from 79 on 04/08. Would you like patient to have another quant level? Ulysses Kang RN documented in this encounterSelect Medical [facility] [place]05-23-2022 Miscellaneous Notes* Telephone Encounter - Loree Dasilva MD - 04/19/2022 2:05 PM EDT completed. Loree Dasilva MD * Telephone Encounter - Antonina Andrews RN - 04/19/2022 8:22 AM EDT IUD order pending. Antonina Andrews RN * Telephone Encounter - Ana M Coon Pss - 04/19/2022 7:51 AM EDT Received a message from central scheduling that the patient is requesting an order for IUD placement. documented in this encounterSelect Medical [facility] [place]05-20-2022 Miscellaneous Notes* Telephone Encounter - Antonina Andrews RN - 04/16/2022 10:16 AM EDT Left detailed message on identified voicemail. Antonina Andrews RN * Telephone Encounter - Karon Loomis MD - 04/16/2022 10:11 AM EDT Please notify pt that HCG quant has decreased which is good. Plan to recheck in 1 week * Telephone Encounter - Antonina Andrews RN - 04/15/2022 4:44 PM EDT Received fax from [facility]. HCG quant on 04/15 was 49. Previous quant on 04/08 was 79. Please review in RR's absence. Thank you. Antonina Andrews RN documented in this encounterSelect Medical [facility] [place]05-04-2022 History of Present illness Narrative* Loree Dasilva MD - 03/31/2022 2:34 PM EDT DATE OF SERVICE: 03/31/2022 PROBLEM: Pippa Means presents for postop visit. SURGERY & DATE: 03/19/22 suction D&C for partial molar PATHOLOGY: c/w partial molar SUBJECTIVE/INTERVAL HISTORY: Pippa Means reports that she feels well. No fever or chills. Bleedinghas stopped. .Has good family support. OBJECTIVE: ASSESSMENT: Reviewed pathology and genetics, c/w partial molar PLAN: 1. Discussed results of pathology and implications with patient. 2. Postop restrictions reviewed. Will use condoms for now. Reviewed with the patient and her importance of not conceiving until hCG level monitoring is complete. Current recommendations are to check it weekly until its normal and then repeat in 1 month. If at that point if still normal or negative, could attempt .If plateaus or does not decrease in the expected manner, discussed with them that methotrexate would be indicated. Her questions were answered. They are comfortable with the plan. Would consider an IUD for contraception. Not a combined hormonal contraceptive candidate. Loree Dasilva MD documented in this encounterSelect Medical [facility] [place]05-02-2022 Miscellaneous Notes* Telephone Encounter - Ulysses Kang RN - 03/29/2022 4:10 PM EDT Genetic results received from [facility]. Results to Dr. Dasilva to review. Ulysses Kang RN * Telephone Encounter - Jayshree Frank LPN - 03/29/2022 4:05 PM EDT Please see pt's mychart message and advise. Jayshree Frank LPN documented in this encounterSelect Medical [facility] [place]04-22-2022 History of Present illness Narrative* Loree Dasilva MD - 03/19/2022 10:09 AM EDT HPI: The patient is a 31 year old female presenting for pre-operative visit. She is scheduled for Suction D&C, for 11week size SAB on 03/19/22. Procedure discussed along with risks, benefits and complications. Other alternatives discussed for management. Consent form signed? Yes. 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 doxylamine succinate (UNISOM, DOXYLAMINE, ORAL) Take by mouth. ondansetron (ZOFRAN) 8 mg tablet Take 1 tablet by mouth every 8 hours as needed for nausea/vomiting. 1/2 TO ONE PO 30 tablet 1 Ypdpwbim-Nb-Zlk-Fe-FA ( VITAMIN) tab Take 1 tablet by mouth once daily. miSOPROStol (CYTOTEC) 200 mcg tablet Use 2 tablets vaginally one time only for [address] 2 tablets vaginally the morning of the procedure 2 tablet 0 No current facility-administered medications for this visit. ALLERGIES: Patient has no known allergies. PERSONAL HISTORY: SOCIAL HISTORY Social History Tobacco Use Smoking status: Never Smoker Smokeless tobacco: Never Used Vaping Use Vaping Use: Never used Substance Use Topics Alcohol use: Not Currently Comment: rare Drug use: No FAMILY HISTORY: FAMILY HISTORY FAMILY HISTORY Problem Relation Age of Onset Cancer Mother lymphoma Heart Father other (benign brain tumor) Father None Sister None Sister None Brother other (other) Maternal Grandmother Parkinson s Disease Maternal Grandfather Macular Degen Paternal Grandmother other (ALS) Paternal Grandfather No Known Problems Daughter REVIEW OF SYMPTOMS: GENERAL: denies fevers or chills ENDOCRINOLOGY: has not been on steroids Cardiology : denies palpitations or chest pain Respiratory: denies SOB or cough Hematology: denies history of prolonged bleeding or easy bruising or VTE Allergy: Denies history of personal or family history of allergy to anesthesia PHYSICAL EXAMINATION: VITALS: Blood pressure 104/62, weight 110 lb (49.9 kg), last menstrual period 11/18/2021. GENERAL: The patient is well nourished, well hydrated in no acute distress. , The patient is oriented to time, place, and person. NECK: Supple. No lynphadenopathy, normal thyroid, no thyromegaly. LUNGS: Clear to auscultation bilaterally. no wheezes, rhonchi or rales HEART: Regular rate and rhythm, Normal heart sounds and No murmurs or gallops GENITALIA: Normal external genitalia, Urethral meatus normal, Bladder nontender, normal vagina and normal vaginal tone, normal cervix, normal uterus, size and consistency, normal adnexa without masses or tenderness and perineum WNL IMPRESSION: @ 17w1d by dates, 11w 3 days CRL without cardiac activity Placenta approx 8x8 cm. CRL 4.53 cm. PLAN: The risks/benefits/alternatives and personal involved for the planned suction D&C were reviewed with the patient. Her questions were answered to her satisfaction and she desires to proceed.Consent was signed. I reviewed with her postop instructions and expectations. I recommended against expectant or medical management due to size of uterus/placenta and risk of hemorrhage. Some concern for molar . check HCG level before surgery. Wait for path. Desires genetic testing of POCs after our discussion today. I have reviewed and updated past medical and surgical history, medications and allergies Loree Dasilva M.D. documented in this encounter[facility] History and physical note * Loree Dasilva MD - 03/18/2022 3:56 PM EDT Pre-Op History and Physical HPI: The patient is a 31 year old female presenting for pre-operative visit. She is scheduled for Suction D&C, for 11week size SAB on 03/19/22. Procedure discussed along with risks, benefits and complications. Other alternatives discussed for management. Consent form signed? Yes. 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 doxylamine succinate (UNISOM, DOXYLAMINE, ORAL) Take by mouth. ondansetron (ZOFRAN) 8 mg tablet Take 1 tablet by mouth every 8 hours as needed for nausea/vomiting. 1/2 TO ONE PO 30 tablet 1 Nzfactcw-Mp-Mst-Fe-FA ( VITAMIN) tab Take 1 tablet by mouth once daily. miSOPROStol (CYTOTEC) 200 mcg tablet Use 2 tablets vaginally one time only for [address] 2 tablets vaginally the morning of the procedure 2 tablet 0 No current facility-administered medications for this visit. ALLERGIES: Patient has no known allergies. PERSONAL HISTORY: Social History Tobacco Use Smoking status: Never Smoker Smokeless tobacco: Never Used Vaping Use Vaping Use: Never used Substance Use Topics Alcohol use: Not Currently Comment: rare Drug use: No FAMILY HISTORY: FAMILY HISTORY Problem Relation Age of Onset Cancer Mother lymphoma Heart Father other (benign brain tumor) Father None Sister None Sister None Brother other (other) Maternal Grandmother Parkinson s Disease Maternal Grandfather Macular Degen Paternal Grandmother other (ALS) Paternal Grandfather No Known Problems Daughter REVIEW OF SYMPTOMS: GENERAL: denies fevers or chills ENDOCRINOLOGY: has not been on steroids Cardiology : denies palpitations or chest pain Respiratory: denies SOB or cough Hematology: denies history of prolonged bleeding or easy bruising or VTE Allergy: Denies history of personal or family history of allergy to anesthesia PHYSICAL EXAMINATION: VITALS: Blood pressure 104/62, weight 110 lb (49.9 kg), last menstrual period 11/18/2021. GENERAL: The patient is well nourished, well hydrated in no acute distress. , The patient is oriented to time, place, and person. NECK: Supple. No lynphadenopathy, normal thyroid, no thyromegaly. LUNGS: Clear to auscultation bilaterally. no wheezes, rhonchi or rales HEART: Regular rate and rhythm, Normal heart sounds and No murmurs or gallops GENITALIA: Normal external genitalia, Urethral meatus normal, Bladder nontender, normal vagina and normal vaginal tone, normal cervix, normal uterus, size and consistency, normal adnexa without masses or tenderness and perineum WNL IMPRESSION: @ 17w1d by dates, 11w 3 days CRL without cardiac activity Placenta approx 8x8 cm. CRL 4.53 cm. PLAN: The risks/benefits/alternatives and personal involved for the planned suction D&C were reviewed with the patient. Her questions were answered to her satisfaction and she desires to proceed.Consent was signed. I reviewed with her postop instructions and expectations. I recommended against expectant or medical management due to size of uterus/placenta and risk of hemorrhage. Some concern for molar . check HCG level before surgery. Wait for path. Desires genetic testing of POCs after our discussion today. I have reviewed and updated past medical and surgical history, medications and allergies Loree Dasilva M.D. documented in this encounter[facility] Miscellaneous Notes* Quick Notes - Loree Dasilva MD - 03/18/2022 10:56 AM EDT RR- VB No. LOF No. CTXS No. Movement: present. Other c/o: intermittent tachycardia. Feels heart race and can tell a difference in her breathing. Medication list reviewed. Physical Exam See Flow Sheet Abd: soft, nontender, gravid Ext: edema: no A/P 17w1d Estimated Date of Delivery: 08/25/22 Brief US done bc I could not detect heart rate. Ulysses Olguin and I confirmed 11w3 d sizeembryo without cardiac activity. Approx 4.5 cm. Placenta is edemetous but not a lot of vascularity.Placental size approx 8x8 cm. D/w her and r/b/a to suction D&C. Strongly recommend against medical or expectant management due to risk hemorrhage. Consent signed. Prefer to do it before the weekend. If she starts to bleed heavier than a period go to ED overnight. They agree w/ plan. Loree Dasilva M.D. documented in this encounterSelect [facility] [place] Instructions* Patient Instructions* Desire George Ma - 03/18/2022 10:26 AM EDT SEQUENTIAL SCREENINGS The [facility] offers sequential screenings for women who are interested in screenings for chromosomal abnormalities and certain defects during a . The sequential screen combinesultrasound and blood tests to determine the risk of chromosomal abnormalities, including Down's Syndrome (Trisomy 21) and Trisomy 18, as well as open neural tube defects including spina bifida. Ultrasound examination is performed between 11 weeks and 13 weeks gestational age. Blood tests are drawn after the ultrasound and again later in the between 15 and 21 weeks gestational age. Please let your physician know if you are interested in this testing. It will require an appointment withour switch technician. This is not an ultrasound performed by a physician in our office during a routine visit. SIGNS AND SYMPTOMS OF LABOR 1. Contractions every 10 minutes or more often 2. Clear, pink, or brownish fluid (water) leaking from vagina 3. Feeling that baby is pushing down, pressure 4. Low, dull backache 5. Cramps that feel like a period 6. Cramps with or without diarrhea If you notice any of the above symptoms, contact our office at [phone] and ask to speak with anurse. After hours, you can call doctors registry at [phone] OR call [facility] at [phone] ask to have the doctor licensed vocational nurse paged. If you consider this an emergency, dial 9-1- or go to your nearest emergency department. NEED HELP? Are you dealing with a violent or abusive relationship? Are you a victim of rape or sexual assult? Call [facility] ([place]) 24 hour Crisis Hotline: 167.776.2233 or 657-701-7412. MANUAL Your Guide to a Healthy manual is now on-line. Visit [email or web address] to download your free copy documented in this encounterSelect [facility] [place] Miscellaneous Notes* Telephone Encounter - Alla Navarrete RN - 03/01/2022 11:38 AM EDT 14w5d today documented in this encounterSelect [facility] [place] History of Past illness Narrative* Problem Noted Date Resolved Date Nausea and vomiting during 01/15/2022 07/21/2022 Family history of defect 01/14/2022 0 07/21/2022 Overview: 01/14/2022 Patient's first cousin born with cleft lip and palate and a heart defect. Patient is unsure of specifics. States the cousin at age 1 month. TKRN Rubella non-immune status, antepartum 06/27/2019 04/29/2020 Encounter for supervision of other normal , first trimester 06/20/2019 07/21/2022 Cerebrovascular accident (CV A) due to thrombosis of right vertebral artery 03/08/2017 06/20/2019 Overview: Had dissection of right vertebral artery, no thrombosis. No anticoagulation needed. Loree Dasilva MD Acne 07/02/2014 06/15/2019 Irregular menstrual cycle 07/02/20142018 documented as of this encounter (statuses as of 07/21/2022) [facility] [place] History of Past illness Narrative* Problem Noted Date Resolved Date Nausea and vomiting during 01/15/2022 07/21/2022 Family history of defect 01/14/2022 0 07/21/2022 Overview: 01/14/2022 Patient's first cousin born with cleft lip and palate and a heart defect. Patient is unsure of specifics. States the cousin at age 1 month. TKRN Rubella non-immune status, antepartum 06/27/2019 04/29/2020 Encounter for supervision of other normal , first trimester 06/20/2019 07/21/2022 Cerebrovascular accident (CV A) due to thrombosis of right vertebral artery 03/08/2017 06/20/2019 Overview: Had dissection of right vertebral artery, no thrombosis. No anticoagulation needed. Loree Dasilva MD Acne 07/02/2014 06/15/2019 Irregular menstrual cycle 07/02/20142018 documented as of this encounter (statuses as of 10/08/2022) [facility] [place] History of Past illness Narrative* Problem Noted Date Resolved Date Nausea and vomiting during 01/15/2022 07/21/2022 Family history of defect 01/14/2022 0 07/21/2022 Overview: 01/14/2022 Patient's first cousin born with cleft lip and palate and a heart defect. Patient is unsure of specifics. States the cousin at age 1 month. TKRN Rubella non-immune status, antepartum 06/27/2019 04/29/2020 Encounter for supervision of other normal , first trimester 06/20/2019 07/21/2022 Cerebrovascular accident (CV A) due to thrombosis of right vertebral artery 03/08/2017 06/20/2019 Overview: Had dissection of right vertebral artery, no thrombosis. No anticoagulation needed. Loree Dasilva MD Acne 07/02/2014 06/15/2019 Irregular menstrual cycle 07/02/20142018 documented as of this encounter (statuses as of 10/15/2022) [facility] [place] History of Past illness Narrative* Problem Noted Date Resolved Date Nausea and vomiting during 01/15/2022 07/21/2022 Family history of defect 01/14/2022 0 07/21/2022 Overview: 01/14/2022 Patient's first cousin born with cleft lip and palate and a heart defect. Patient is unsure of specifics. States the cousin at age 1 month. TKRN Rubella non-immune status, antepartum 06/27/2019 04/29/2020 Encounter for supervision of other normal , first trimester 06/20/2019 07/21/2022 Cerebrovascular accident (CV A) due to thrombosis of right vertebral artery 03/08/2017 06/20/2019 Overview: Had dissection of right vertebral artery, no thrombosis. No anticoagulation needed. Loree Dasilva MD Acne 07/02/2014 06/15/2019 Irregular menstrual cycle 07/02/20142018 documented as of this encounter (statuses as of 12/02/2022) [facility] [place] History of Past illness Narrative* Problem Noted Date Resolved Date Nausea and vomiting during 01/15/2022 07/21/2022 Family history of defect 01/14/2022 0 07/21/2022 Overview: 01/14/2022 Patient's first cousin born with cleft lip and palate and a heart defect. Patient is unsure of specifics. States the cousin at age 1 month. TKRN Rubella non-immune status, antepartum 06/27/2019 04/29/2020 Encounter for supervision of other normal , first trimester 06/20/2019 07/21/2022 Cerebrovascular accident (CV A) due to thrombosis of right vertebral artery 03/08/2017 06/20/2019 Overview: Had dissection of right vertebral artery, no thrombosis. No anticoagulation needed. Loree Dasilva MD Acne 07/02/2014 06/15/2019 Irregular menstrual cycle 07/02/20142018 documented as of this encounter (statuses as of 04/05/2023) [facility] [place] History of Past illness Narrative* Problem Noted Date Resolved Date Nausea and vomiting during 01/15/2022 07/21/2022 Family history of defect 01/14/2022 0 07/21/2022 Overview: 01/14/2022 Patient's first cousin born with cleft lip and palate and a heart defect. Patient is unsure of specifics. States the cousin at age 1 month. TKRN Rubella non-immune status, antepartum 06/27/2019 04/29/2020 Encounter for supervision of other normal , first trimester 06/20/2019 07/21/2022 Cerebrovascular accident (CV A) due to thrombosis of right vertebral artery 03/08/2017 06/20/2019 Overview: Had dissection of right vertebral artery, no thrombosis. No anticoagulation needed. Loree Dasilva MD Acne 07/02/2014 06/15/2019 Irregular menstrual cycle 07/02/20142018 documented as of this encounter (statuses as of 05/10/2023) [facility] [place] History of Past illness Narrative* Problem Noted Date Resolved Date Nausea and vomiting during 01/15/2022 07/21/2022 Family history of defect 01/14/2022 0 07/21/2022 Overview: 01/14/2022 Patient's first cousin born with cleft lip and palate and a heart defect. Patient is unsure of specifics. States the cousin at age 1 month. TKRN Rubella non-immune status, antepartum 06/27/2019 04/29/2020 Encounter for supervision of other normal , first trimester 06/20/2019 07/21/2022 Cerebrovascular accident (CV A) due to thrombosis of right vertebral artery 03/08/2017 06/20/2019 Overview: Had dissection of right vertebral artery, no thrombosis. No anticoagulation needed. Loree Dasilva MD Acne 07/02/2014 06/15/2019 Irregular menstrual cycle 07/02/20142018 documented as of this encounter (statuses as of 05/18/2023) [facility] [place] History of Past illness Narrative* Problem Noted Date Diagnosed Date Resolved Date Nausea and vomiting during 01/15/2022 07/21/2022 Family history of defect 01/14/2022 07/21/2022 Overview: 01/14/2022 Patient's first cousin born with cleft lip and palate and a heart defect. Patient is unsure of specifics. States the cousin at age 1 month. TKRN Rubella non-immune status, antepartum 06/27/2019 04/29/2020 Encounter for supervision of other normal , first trimester 06/20/2019 07/21/2022 Cerebrovascular accident (CV A) due to thrombosis of right vertebral artery 03/08/2017 Overview: Had dissection of right vertebral artery, no thrombosis. No anticoagulation needed. Loree Dasilva MD Acne 07/02/2014 06/15/2019 Irregular menstrual cycle 07/02/2014 documented as of this encounter (statuses as of 02/14/2024) [facility] [place] History of Past illness Narrative* Problem Noted Date Resolved Date Rubella non-immune status, antepartum 06/27/2019 04/29/2020 Cerebrovascular accident (CV A) due to thrombosis of right vertebral artery 03/08/2017 06/20/2019 Overview: Had dissection of right vertebral artery, no thrombosis. No anticoagulation needed. Loree Dasilva MD Acne 07/02/2014 06/15/2019 Irregular menstrual cycle 07/02/20142018 documented as of this encounter (statuses as of 03/01/2022) [facility] History of Past illness Narrative* Problem Noted Date Resolved Date Rubella non-immune status, antepartum 06/27/2019 04/29/2020 Cerebrovascular accident (CV A) due to thrombosis of right vertebral artery 03/08/2017 06/20/2019 Overview: Had dissection of right vertebral artery, no thrombosis. No anticoagulation needed. Loree Dasilva MD Acne 07/02/2014 06/15/2019 Irregular menstrual cycle 07/02/20142018 documented as of this encounter (statuses as of 03/01/2022) [facility] History of Past illness Narrative* Problem Noted Date Resolved Date Rubella non-immune status, antepartum 06/27/2019 04/29/2020 Cerebrovascular accident (CV A) due to thrombosis of right vertebral artery 03/08/2017 06/20/2019 Overview: Had dissection of right vertebral artery, no thrombosis. No anticoagulation needed. Loree Dasilva MD Acne 07/02/2014 06/15/2019 Irregular menstrual cycle 07/02/20142018 documented as of this encounter (statuses as of 03/19/2022) [facility] History of Past illness Narrative* Problem Noted Date Resolved Date Rubella non-immune status, antepartum 06/27/2019 04/29/2020 Cerebrovascular accident (CV A) due to thrombosis of right vertebral artery 03/08/2017 06/20/2019 Overview: Had dissection of right vertebral artery, no thrombosis. No anticoagulation needed. Loree Dasilva MD Acne 07/02/2014 06/15/2019 Irregular menstrual cycle 07/02/20142018 documented as of this encounter (statuses as of 2022) [address]31-2019 History of Past illness Narrative* Problem Noted Date Resolved Date Rubella non-immune status, antepartum 06/27/2019 04/29/2020 Cerebrovascular accident (CV A) due to thrombosis of right vertebral artery 03/08/2017 06/20/2019 Overview: Had dissection of right vertebral artery, no thrombosis. No anticoagulation needed. Loree Dasilva MD Acne 07/02/2014 06/15/2019 Irregular menstrual cycle 07/02/20142018 documented as of this encounter (statuses as of 03/31/2022) [facility] History of Past illness Narrative* Problem Noted Date Resolved Date Rubella non-immune status, antepartum 06/27/2019 04/29/2020 Cerebrovascular accident (CV A) due to thrombosis of right vertebral artery 03/08/2017 06/20/2019 Overview: Had dissection of right vertebral artery, no thrombosis. No anticoagulation needed. Loree Dasilva MD Acne 07/02/2014 06/15/2019 Irregular menstrual cycle 07/02/20142018 documented as of this encounter (statuses as of 04/16/2022) [facility] History of Past illness Narrative* Problem Noted Date Resolved Date Rubella non-immune status, antepartum 06/27/2019 04/29/2020 Cerebrovascular accident (CV A) due to thrombosis of right vertebral artery 03/08/2017 06/20/2019 Overview: Had dissection of right vertebral artery, no thrombosis. No anticoagulation needed. Loree Dasilva MD Acne 07/02/2014 06/15/2019 Irregular menstrual cycle 07/02/20142018 documented as of this encounter (statuses as of 04/19/2022) [facility] History of Past illness Narrative* Problem Noted Date Resolved Date Rubella non-immune status, antepartum 06/27/2019 04/29/2020 Cerebrovascular accident (CV A) due to thrombosis of right vertebral artery 03/08/2017 06/20/2019 Overview: Had dissection of right vertebral artery, no thrombosis. No anticoagulation needed. Loree Dasilva MD Acne 07/02/2014 06/15/2019 Irregular menstrual cycle 07/02/20142018 documented as of this encounter (statuses as of 04/23/2022) [facility] History of Past illness Narrative* Problem Noted Date Resolved Date Rubella non-immune status, antepartum 06/27/2019 04/29/2020 Cerebrovascular accident (CV A) due to thrombosis of right vertebral artery 03/08/2017 06/20/2019 Overview: Had dissection of right vertebral artery, no thrombosis. No anticoagulation needed. Loree Dasilva MD Acne 07/02/2014 06/15/2019 Irregular menstrual cycle 07/02/20142018 documented as of this encounter (statuses as of 05/03/2022) [facility] History of Past illness Narrative* Problem Noted Date Resolved Date Rubella non-immune status, antepartum 06/27/2019 04/29/2020 Cerebrovascular accident (CV A) due to thrombosis of right vertebral artery 03/08/2017 06/20/2019 Overview: Had dissection of right vertebral artery, no thrombosis. No anticoagulation needed. Loree Dasilva MD Acne 07/02/2014 06/15/2019 Irregular menstrual cycle 07/02/20142018 documented as of this encounter (statuses as of 05/05/2022) [facility] History of Past illness Narrative* Problem Noted Date Resolved Date Rubella non-immune status, antepartum 06/27/2019 04/29/2020 Cerebrovascular accident (CV A) due to thrombosis of right vertebral artery 03/08/2017 06/20/2019 Overview: Had dissection of right vertebral artery, no thrombosis. No anticoagulation needed. Loree Dasilva MD Acne 07/02/2014 06/15/2019 Irregular menstrual cycle 07/02/20142018 documented as of this encounter (statuses as of 05/05/2022) [facility] History of Past illness Narrative* Problem Noted Date Resolved Date Rubella non-immune status, antepartum 06/27/2019 04/29/2020 Cerebrovascular accident (CV A) due to thrombosis of right vertebral artery 03/08/2017 06/20/2019 Overview: Had dissection of right vertebral artery, no thrombosis. No anticoagulation needed. Loree Dasilva MD Acne 07/02/2014 06/15/2019 Irregular menstrual cycle 07/02/20142018 documented as of this encounter (statuses as of 05/11/2022) [facility] History of Past illness Narrative* Problem Noted Date Resolved Date Rubella non-immune status, antepartum 06/27/2019 04/29/2020 Cerebrovascular accident (CV A) due to thrombosis of right vertebral artery 03/08/2017 06/20/2019 Overview: Had dissection of right vertebral artery, no thrombosis. No anticoagulation needed. Loree Dasilva MD Acne 07/02/2014 06/15/2019 Irregular menstrual cycle 07/02/20142018 documented as of this encounter (statuses as of 05/24/2022) [facility] History of Past illness Narrative* Problem Noted Date Resolved Date Rubella non-immune status, antepartum 06/27/2019 04/29/2020 Cerebrovascular accident (CV A) due to thrombosis of right vertebral artery 03/08/2017 06/20/2019 Overview: Had dissection of right vertebral artery, no thrombosis. No anticoagulation needed. Loree Dasilva MD Acne 07/02/2014 06/15/2019 Irregular menstrual cycle 07/02/20142018 documented as of this encounter (statuses as of 06/07/2022) [facility] History of Past illness Narrative* Problem Noted Date Resolved Date Rubella non-immune status, antepartum 06/27/2019 04/29/2020 Cerebrovascular accident (CV A) due to thrombosis of right vertebral artery 03/08/2017 06/20/2019 Overview: Had dissection of right vertebral artery, no thrombosis. No anticoagulation needed. Loree Dasilva MD Acne 07/02/2014 06/15/2019 Irregular menstrual cycle 07/02/20142018 documented as of this encounter (statuses as of 06/18/2022) [facility] History of Past illness Narrative* Problem Noted Date Resolved Date Rubella non-immune status, antepartum 06/27/2019 04/29/2020 Cerebrovascular accident (CV A) due to thrombosis of right vertebral artery 03/08/2017 06/20/2019 Overview: Had dissection of right vertebral artery, no thrombosis. No anticoagulation needed. Loree Dasilva MD Acne 07/02/2014 06/15/2019 Irregular menstrual cycle 07/02/20142018 documented as of this encounter (statuses as of 06/29/2022) [facility] History of Past illness Narrative* Problem Noted Date Resolved Date Rubella non-immune status, antepartum 06/27/2019 04/29/2020 Cerebrovascular accident (CV A) due to thrombosis of right vertebral artery 03/08/2017 06/20/2019 Overview: Had dissection of right vertebral artery, no thrombosis. No anticoagulation needed. Loree Dasilva MD Acne 07/02/2014 06/15/2019 Irregular menstrual cycle 07/02/20142018 documented as of this encounter (statuses as of 07/05/2022) [facility] History of Past illness Narrative* Problem Noted Date Resolved Date Rubella non-immune status, antepartum 06/27/2019 04/29/2020 Cerebrovascular accident (CV A) due to thrombosis of right vertebral artery 03/08/2017 06/20/2019 Overview: Had dissection of right vertebral artery, no thrombosis. No anticoagulation needed. Loree Dasilva MD Acne 07/02/2014 06/15/2019 Irregular menstrual cycle 07/02/20142018 documented as of this encounter (statuses as of 07/08/2022) [facility] History of Past illness Narrative* Problem Noted Date Resolved Date Rubella non-immune status, antepartum 06/27/2019 04/29/2020 Cerebrovascular accident (CV A) due to thrombosis of right vertebral artery 03/08/2017 06/20/2019 Overview: Had dissection of right vertebral artery, no thrombosis. No anticoagulation needed. Loree Dasilva MD Acne 07/02/2014 06/15/2019 Irregular menstrual cycle 07/02/20142018 documented as of this encounter (statuses as of 07/08/2022) [facility]-18-2019 Miscellaneous Notes* Telephone Encounter - Antonina Andrews RN - 02/12/2019 4:52 PM EDT Referral placed to insurance company for IUD removal. Will need to book IUD appointment once patient responds. Antonina Andrews RN [facility] Miscellaneous Notes* Telephone Encounter - Antonina Andrews RN - 11/22/2018 9:57 AM EST There is also a phone note today concerning this. Antonina Andrews RN [facility] No data available for this section [facility] Evaluation note* Diagnosis Postprandial epigastric pain- Primary Abdominal pain, epigastric documented in this [facility]* Diagnosis Onset Date Resolution Status Missed with d emise before 20 completed weeks of gestation [facility] Work Phone: Evaluation note* Diagnosis 17 weeks gestation of - Primary state, incidental Missed documented in this encounter [facility] note* Diagnosis Partial molar - Primary Other abnormal products of conception documented in this encounter [facility] noteNo assessment information availableWPeoples Hospital Work Phone: Evaluation note* Diagnosis Encounter for IUD insertion- Primary Encounter for insertion of intrauterine contraceptive device documented in this encounter [facility] note* Diagnosis Pelvic pain in female- Primary Unspecified symptom associated with female genital organs IUD (intrauterine device) in place- Primary Presence of intrauterine contraceptive device documented in this encounter [facility] note* Diagnosis IUD (intrauterine device) in place- Primary Presence of intrauterine contraceptive device [facility] Cystic acne- Primary Other acne Abnormal uterine bleeding Unspecified disorder of menstruation and other abnormal bleeding from female genital tract documented [facility] this encounter [facility] [place] [facility]* Diagnosis Encounter for gynecological examination without abnormal finding- Primary Routine gynecological examination Encounter for IUD removal Encounter for removal of intrauterine contraceptive device Encounter for screening for malignant neoplasm of cervix Screening for malignant neoplasm of the cervix Special screening examination for human papillomavirus (HPV) [facility] [place] [facility]* Diagnosis Generalized abdominal cramping- Primary Abdominal pain, generalized Patient desires Unspecified procreative management documented in this encounter [facility] [place] [facility]* Diagnosis Bacterial sinusitis- Primary Unspecified sinusitis (chronic) documented in this encounter [facility] [place] [facility]* Diagnosis Sore throat- Primary Acute pharyngitis documented [facility] [place] [facility]* Diagnosis Influenza-like illness- Primary Influenza with other respiratory manifestations [facility] Additional Instructions Follow-up with Dr. Carnes to get your other test results. Your TSH or thyroid- stimulating hormone level was slightly abnormal at negative. The result is 3.84 and upper limits of normal here is 3.74 and this is barely abnormal. Follow-up with primary care physician for any other results and they can decide if they need to start you on thyroid medication or not.[facility] Work Phone: Hospital Discharge instructions No data available for this section [facility] Progress note No data available for this section [facility] Reason for referral (narrative)* Diagnostic Procedure Only (Routine) - Pending Review Specialty Diagnoses / Procedures Referred By Mimi t Referred To Contact [facility] Diagnoses 17 weeks gestation of Encounter for supervision of other normal in second trimester Procedures OBSTETRIC ULTRASOUND WHI US PREG UTERUS AFTER 1ST TRIMEST GESTATION Loree Dasilva MD [address] [place] [address] [facility] [address] [place] [address] Referral ID Status Reason Start Date Expiration Date Visits Requested Visits Authorized [id number] Pending Review Auto-Generat ed Referral 03/18/2022 03/18/2023 1 1 [facility] (narrative)* Outpatient Procedure (Routine) - Pending Review Specialty Diagnoses / Procedures Referred By Contac t Referred To Contact [facility] Diagnoses Encounter for IUD insertion Procedures INSERT INTRAUTERINE DEVICE LEVONORGESTREL IU 52MG 5 YR INSERT INTRAUTERINE DEVICE Loree Dasilva MD [address] [place] [address] [facility] [address] [place] [address] Referral ID Status Reason Start Date Expiration Date Visits Requested Visits Authorized [id number] Pending Review Auto-Generat ed Referral 04/19/2022 04/19/2023 1 1 [facility] ([facility]ative)* Diagnostic Procedure Only (Routine) - Closed Specialty Diagnoses / Procedures Referred By Contac t Referred To Contact [facility] Diagnoses Pelvic pain in female Procedures PELVIC US WHI US PELVIC NONOBSTETRIC REAL-TIME IMAGE COMPLETE Terra Medrano APRN.CNM [address] [place] [address] [facility] [address] [place] [address] Referral ID Status Reason Start Date Expiration Date V isits Requested Visits Authorized [id number] Closed Auto-Generate d Referral 07/08/2022 07/08/2023 1 1 [facility] (narrative)No reason for referral information availableWPeoples Hospital Work Phone: Summary Purpose Family History No Family History Records Found Relationship Condition Age at Onset Recorded Date/T timothy mother Malignant neoplasm of breast Unknown Malignant neoplasm Unknown Osteoporosis Unknown Disorder of thyroid Unknown father Myocardial infarction Unknown High blood cholesterol Unknown grandmother Malignant neoplasm of colon Unknown grandfather Parkinson's disease Unknown Relationship Condition Age at Onset Recorded Date/T timothy mother Malignant neoplasm of breast Unknown Malignant neoplasm Unknown Osteoporosis Unknown Disorder of thyroid Unknown father Myocardial infarction Unknown High blood cholesterol Unknown Benign neoplasm of brain Unknown grandmother Malignant neoplasm of colon Unknown grandfather Parkinson's disease Unknown aunt Leukemia Unknown grandmother Non-Hodgkin lymphoma Unknown uncle Myocardial infarction Unknown Advance Directives No Advanced Directives Records Found Advance Directive Response Recorded Date/ Time Living Will No March 18, 2022 2:33pm Power of Stud Driver No March 18 2:33pm Advance Directive Response Recorded Date/ Time Living Will No February 23, 2023 12:21pm Power of Stud Driver No February 23 12:21pm Medications Administered Section Inactive Administered Medications - up to 3 most recent administrations Medication Order MAR Action Action Date Dose Rate Site copper intrauterine device 380 square mm (PARAGARD) 1 Intra Uterine Device, INTRAUTERINE, ONCE (UP TO 30 DAYS AMB), 1 dose, On 05/05/22 at 1430 Given 05/05/2022 2:25 PM EDT 1 Intra Uterine Device Chief Complaint and Reason for Visit Chief Complaint Admit Date Sinus infection March 19, 2025 8:0 8am Thyroid June 18, 2025 8:54 am Reason for Visit Admit Date Sinusitis March 19, 2025 8:0 8am Paresthesia June 18, 2025 8:54 am Hypothyroidism (acquired) June 18 8:54am Chief Complaint WEAKNESS Chief Complaint WEAKNESS EORDER Chief Complaint WEAKNESS EORDER MUSCLE WEAKNESS Chief Complaint SCHOGRENS Chief Complaint Admit Date SJOGRENS March 11, 2025 12: 18pm Chief Complaint Admit Date SJOGRENS March 11, 2025 12: 18pm Sinus infection March 19, 2025 8:0 8am Reason for Visit Admit Date Sinusitis March 19, 2025 8:0 8am Chief Complaint Admit Date SJOGRENS March 11, 2025 12: 18pm Sinus infection March 19, 2025 8:0 8am Thyroid June 18, 2025 8:54 am Chief Complaint Admit Date Thyroid June 18, 2025 8:54 am EST NEW PT - PPWK SENT July 23, 2025 8:56am Reason for Visit Admit Date Paresthesia June 18, 2025 8:54 am Hypothyroidism (acquired) June 18 8:54am Paresthesia July 23, 2025 8: 56am Hypothyroidism (acquired) July 23, 025 8:56am Screening for cardiovascular condition A ugust 2024 8:56am Establishing care with new doctor, polina ignacio for July 23, 2025 8:56am Fatigue July 23, 2025 8: 56am Additional Source Comments INFORMATION SOURCE (unrecogn ized section and content) DATE CREATED AUTHOR 09/20/2018 [facility] DATE CREATED AUTHOR AUTHOR'S ORGANIZ ATION 06/23/[address] [facility] ([place]) DATE CREATED AUTHOR AUTHOR'S ORGANIZ ATION 03/14/[address] [facility] ([place]) DATE CREATED AUTHOR AUTHOR'S ORGANIZ ATION 11/25/2024 [facility] DATE CREATED AUTHOR AUTHOR'S ORGANIZ ATION 05/06/2025 [facility] DATE CREATED AUTHOR AUTHOR'S ORGANIZ ATION 07/24/2025 [facility] Source Comments (unrecognize d section and content) In the event this informatio n is protected by the Federal Confidentiality of Alcohol and Drug Abuse Patient Records regulations: The Federal rules restrict any use of the information to criminally investigate or prosecute any alcohol or drug abuse patient.[facility] the event this information is protected by the Federal Confidentiality of Alcohol and Drug Abuse Patient Records regulations: The Federal rules restrict any use of the information to criminally investigate or prosecute any alcohol or drug abuse patient.[facility] the event this information is protected by the Federal Confidentiality of Alcohol and Drug Abuse Patient Records regulations: The Federal rules restrict any use of the information to criminally investigate or prosecute any alcohol or drug abuse patient.[facility] the event this information is protected by the Federal Confidentiality of Alcohol and Drug Abuse Patient Records regulations: The Federal rules restrict any use of the information to criminally investigate or prosecute any alcohol or drug abuse patient.[facility] Dublin[facility] the event this information is protected by the Federal Confidentiality of Alcohol and Drug Abuse Patient Records regulations: The Federal rules restrict any use of the information to criminally investigate or prosecute any alcohol or drug abuse patient.[facility] Dublin[facility] the event this information is protected by the Federal Confidentiality of Alcohol and Drug Abuse Patient Records regulations: The Federal rules restrict any use of the information to criminally investigate or prosecute any alcohol or drug abuse patient.[facility] the event this information is protected by the Federal Confidentiality of Alcohol and Drug Abuse Patient Records regulations: The Federal rules restrict any use of the information to criminally investigate or prosecute any alcohol or drug abuse patient.[facility] Dublin[facility] the event this information is protected by the Federal Confidentiality of Alcohol and Drug Abuse Patient Records regulations: The Federal rules restrict any use of the information to criminally investigate or prosecute any alcohol or drug abuse patient.[facility] Dublin[facility] the event this information is protected by the Federal Confidentiality of Alcohol and Drug Abuse Patient Records regulations: The Federal rules restrict any use of the information to criminally investigate or prosecute any alcohol or drug abuse patient.[facility] Dublin[facility] the event this information is protected by the Federal Confidentiality of Alcohol and Drug Abuse Patient Records regulations: The Federal rules restrict any use of the information to criminally investigate or prosecute any alcohol or drug abuse patient.[facility] Dublin[facility] the event this information is protected by the Federal Confidentiality of Alcohol and Drug Abuse Patient Records regulations: The Federal rules restrict any use of the information to criminally investigate or prosecute any alcohol or drug abuse patient.[facility] Dublin[facility] the event this information is protected by the Federal Confidentiality of Alcohol and Drug Abuse Patient Records regulations: The Federal rules restrict any use of the information to criminally investigate or prosecute any alcohol or drug abuse patient.[facility] Dublin[facility] the event this information is protected by the Federal Confidentiality of Alcohol and Drug Abuse Patient Records regulations: The Federal rules restrict any use of the information to criminally investigate or prosecute any alcohol or drug abuse patient.[facility] Dublin[facility] the event this information is protected by the Federal Confidentiality of Alcohol and Drug Abuse Patient Records regulations: The Federal rules restrict any use of the information to criminally investigate or prosecute any alcohol or drug abuse patient.[facility] Dublin[facility] the event this information is protected by the Federal Confidentiality of Alcohol and Drug Abuse Patient Records regulations: The Federal rules restrict any use of the information to criminally investigate or prosecute any alcohol or drug abuse patient.[facility] Dublin[facility] the event this information is protected by the Federal Confidentiality of Alcohol and Drug Abuse Patient Records regulations: The Federal rules restrict any use of the information to criminally investigate or prosecute any alcohol or drug abuse patient.[facility] Dublin[facility] the event this information is protected by the Federal Confidentiality of Alcohol and Drug Abuse Patient Records regulations: The Federal rules restrict any use of the information to criminally investigate or prosecute any alcohol or drug abuse patient.[facility] Dublin[facility] the event this information is protected by the Federal Confidentiality of Alcohol and Drug Abuse Patient Records regulations: The Federal rules restrict any use of the information to criminally investigate or prosecute any alcohol or drug abuse patient.[facility] DublinIn the event this information is protected by the Federal Confidentiality of Alcohol and Drug Abuse Patient Records regulations: The Federal rules restrict any use of the information to criminally investigate or prosecute any alcohol or drug abuse patient.[facility] DublinIn the event this information is protected by the Federal Confidentiality of Alcohol and Drug Abuse Patient Records regulations: The Federal rules restrict any use of the information to criminally investigate or prosecute any alcohol or drug abuse patient.[facility] Dublin[facility] the event this information is protected by the Federal Confidentiality of Alcohol and Drug Abuse Patient Records regulations: The Federal rules restrict any use of the information to criminally investigate or prosecute any alcohol or drug abuse patient.[facility] DublinIn the event this information is protected by the Federal Confidentiality of Alcohol and Drug Abuse Patient Records regulations: The Federal rules restrict any use of the information to criminally investigate or prosecute any alcohol or drug abuse patient.[facility] Dublin[facility] the event this information is protected by the Federal Confidentiality of Alcohol and Drug Abuse Patient Records regulations: The Federal rules restrict any use of the information to criminally investigate or prosecute any alcohol or drug abuse patient.[facility] Dublin[facility] the event this information is protected by the Federal Confidentiality of Alcohol and Drug Abuse Patient Records regulations: The Federal rules restrict any use of the information to criminally investigate or prosecute any alcohol or drug abuse patient.[facility] Dublin[facility] the event this information is protected by the Federal Confidentiality of Alcohol and Drug Abuse Patient Records regulations: The Federal rules restrict any use of the information to criminally investigate or prosecute any alcohol or drug abuse patient.[facility] Dublin[facility] the event this information is protected by the Federal Confidentiality of Alcohol and Drug Abuse Patient Records regulations: The Federal rules restrict any use of the information to criminally investigate or prosecute any alcohol or drug abuse patient.[facility] Dublin[facility] the event this information is protected by the Federal Confidentiality of Alcohol and Drug Abuse Patient Records regulations: The Federal rules restrict any use of the information to criminally investigate or prosecute any alcohol or drug abuse patient.[facility] Dublin[facility] the event this information is protected by the Federal Confidentiality of Alcohol and Drug Abuse Patient Records regulations: The Federal rules restrict any use of the information to criminally investigate or prosecute any alcohol or drug abuse patient.[facility] Dublin[facility] the event this information is protected by the Federal Confidentiality of Alcohol and Drug Abuse Patient Records regulations: The Federal rules restrict any use of the information to criminally investigate or prosecute any alcohol or drug abuse patient.[facility] DublinIn the event this information is protected by the Federal Confidentiality of Alcohol and Drug Abuse Patient Records regulations: The Federal rules restrict any use of the information to criminally investigate or prosecute any alcohol or drug abuse patient.[facility] DublinIn the event this information is protected by the Federal Confidentiality of Alcohol and Drug Abuse Patient Records regulations: The Federal rules restrict any use of the information to criminally investigate or prosecute any alcohol or drug abuse patient.[facility] DublinIn the event this information is protected by the Federal Confidentiality of Alcohol and Drug Abuse Patient Records regulations: The Federal rules restrict any use of the information to criminally investigate or prosecute any alcohol or drug abuse patient.[facility] DublinIn the event this information is protected by the Federal Confidentiality of Alcohol and Drug Abuse Patient Records regulations: The Federal rules restrict any use of the information to criminally investigate or prosecute any alcohol or drug abuse patient.[facility] DublinIn the event this information is protected by the Federal Confidentiality of Alcohol and Drug Abuse Patient Records regulations: The Federal rules restrict any use of the information to criminally investigate or prosecute any alcohol or drug abuse patient.[facility] DublinIn the event this information is protected by the Federal Confidentiality of Alcohol and Drug Abuse Patient Records regulations: The Federal rules restrict any use of the information to criminally investigate or prosecute any alcohol or drug abuse patient.[facility] DublinIn the event this information is protected by the Federal Confidentiality of Alcohol and Drug Abuse Patient Records regulations: The Federal rules restrict any use of the information to criminally investigate or prosecute any alcohol or drug abuse patient.[facility] DublinIn the event this information is protected by the Federal Confidentiality of Alcohol and Drug Abuse Patient Records regulations: The Federal rules restrict any use of the information to criminally investigate or prosecute any alcohol or drug abuse patient.[facility] DublinIn the event this information is protected by the Federal Confidentiality of Alcohol and Drug Abuse Patient Records regulations: The Federal rules restrict any use of the information to criminally investigate or prosecute any alcohol or drug abuse patient.[facility] Care Teams (unrecognized sec tion and content) Real Estate Office Manager Relationship Specialty Start Date End Date Zuleima Carnes PCP - General Family Practice 06/28/14 Real Estate Office Manager Relationship Specialty Start Date End Date Zuleima Carnes PCP - General Family Practice 06/28/14 Real Estate Office Manager Relationship Specialty Start Date End Date Zuleima Carnes PCP - General Family Practice 06/28/14 Real Estate Office Manager Relationship Specialty Start Date End Date Zuleima Carnes PCP - General Family Practice 06/28/14 Real Estate Office Manager Relationship Specialty Start Date End Date Zuleima Carnes PCP - General Family Practice 06/28/14 Real Estate Office Manager Relationship Specialty Start Date End Date Zuleima Carnes PCP - General Family Practice 06/28/14 Real Estate Office Manager Relationship Specialty Start Date End Date Zuleima Carnes PCP - General Family Practice 06/28/14 Real Estate Office Manager Relationship Specialty Start Date End Date Zuleima Carnes PCP - General Family Practice 06/28/14 Real Estate Office Manager Relationship Specialty Start Date End Date Zuleima Carnes PCP - General Family Practice 06/28/14 Real Estate Office Manager Relationship Specialty Start Date End Date Zuleima Carnes PCP - General Family Practice 06/28/14 Real Estate Office Manager Relationship Specialty Start Date End Date Zuleima Carnes PCP - General Family Practice 06/28/14 Real Estate Office Manager Relationship Specialty Start Date End Date Zuleima Canres PCP - General Family Practice 06/28/14 Real Estate Office Manager Relationship Specialty Start Date End Date Zuleima Carnes PCP - General Family Practice 06/28/14 Real Estate Office Manager Relationship Specialty Start Date End Date Zuleima Carnes PCP - General Family Practice 06/28/14 Real Estate Office Manager Relationship Specialty Start Date End Date Zuleima Carnes PCP - General Family Practice 06/28/14 Real Estate Office Manager Relationship Specialty Start Date End Date Zuleima Carnes PCP - General Family Practice 06/28/14 Real Estate Office Manager Relationship Specialty Start Date End Date Zuleima Carneser PCP - General Family Practice 06/28/14 Real Estate Office Manager Relationship Specialty Start Date End Date Zuleima Carnes PCP - General Family Practice 06/28/14 [employer] Office Manager Relationship Specialty Start Date End Date Zuleima Carnes PCP - General Family Medicine 06/28/14 [employer] Estate Office Manager Relationship Specialty Start Date End Date Zuleima Carnes PCP - General Family Medicine 06/28/14 Real Estate Office Manager Relationship Specialty Start Date End Date Zuleima Carnes PCP - General Family Medicine 06/28/14 Team Status: Active Member Role Status Dates Dr. Zuleima Carnes MD Family Provider Active Dr. Zuleima Carnes MD Primary Care Provider Active Team Status: Inactive Member Role Status Dates Dr. Zuleima Carnes MD Primary Care Prov ider, Attending Provider, Referring Provider Active Team Status: Active Member Role Status Dates Dr. Zuleima Carnes MD Primary Care Provider Active Alia Huerta DO Attending Provider Active Team Status: Inactive Member Role Status Dates Dr. Zuleima Carnes MD Primary Care Provider Active Dr. Joni Hirsch MD Emergency Provider Active Team Status: Inactive Member Role Status Dates Dr. Zuleima Carnes MD Primary Care Provider Active Alia Huerta DO Attending Provider Active Team Status: Active Member Role Status Dates Dr. Zuleima Carnes MD Primary Care Provider Active Alia Huerta DO Attending Provider, Referring Pr ovider Active Team Status: Inactive Member Role Status Dates Dr. Zuleima Carnes MD Primary Care Provider Active Dr. Joni Hirsch MD Attending Provider, Emergency Pro vider Active Team Status: Inactive Member Role Status Dates Dr. Zuleima Carnes MD Primary Care Provider Active Alia Huerta DO Attending Provider, Referring Pr ovider Active [employer] Estate Office Manager Relationship Specialty Start Date End Date Zuleima Carnes Vanesa PCP - General Family Medicine 06/28/14 [employer] Estate Office Manager Relationship Specialty Start Date End Date Zuleima Carneser PCP - General Family Medicine 06/28/14 Team Status: Inactive Member Role Status Dates Dr. Zuleima Carnes MD Primary Care Provider Active Alia Huerta DO Attending Provider Active SHELBY MIRANDA Other Provider Active Team Status: Inactive Member Role Status Dates Dr. Zuleima Carnes MD Primary Care Provider Active Dr. Delmer Cole MD Attending Provider, Referring Sonido méndez Active [employer] Estate Office Manager Relationship Specialty Start Date End Date Zuleima Carnes PCP - [facility] Family Medicine 06/28/14 Real Estate Office Manager Relationship Specialty Start Date End Date Zuleima Carnes PCP - [facility] Medicine 06/28/14 Team Status: Inactive Member Role Status Dates Dr. Zuleima Carnes MD Primary Care Provider Active Start: January 03, 2025 End: January 03, 2025 SHELBY MIRANDA Attending Provider Active Start: January 03, 2025 End: January 03, 2025 SHELBY MIRANDA Referring Provider Active Start: January 03, 2025 End: January 03, 2025 Team Status: Inactive Member Role Status Dates Dr. Zuleima Carnes MD Primary Care Provider Active Start: March 11, 2025 End: March 11, 2025 Dr. Delmer Cole MD Attending Provider Active Start: March 11, 2025 End: March 11, 2025 Dr. Delmer Cole MD Referring Provider Active Start: March 11, 2025 End: March 11, 2025 Team Status: Active Member Role/Relationship Status Dates Dr. Irene Powell MD Primary Care Provider Active Team Status: Inactive Member Role/Relationship Status Dates Dr. Zuleima Carnes MD Primary Care Provider Active Start: March 11, 2025 End: March 11, 2025 Dr. Delmer Cole MD Attending Provider Active Start: March 11, 2025 End: March 11, 2025 Dr. Delmer Cole MD Referring Provider Active Start: March 11, 2025 End: March 11, 2025 Team Status: Inactive Member Role/Relationship Status Dates Dr. Zuleima Carnes MD Primary Care Provider Active Start: March 19, 2025 End: March 19, 2025 Dr. Zuleima Carnes MD Referring Provider Active Start: March 19, 2025 End: March 19, 2025 Fadi BAY PA Attending Provider Active Start: March 19, 2025 End: March 19, 2025 Team Status: Inactive Member Role/Relationship Status Dates Dr. Irene Powell MD Primary Care Provider Active Start: June 10, 2025 End: June 10, 2025 Dr. Donis Dean MD Attending Provider Active Sta rt: June 10, 2025 End: June 10, 2025 Team Status: Inactive Member Role/Relationship Status Dates Dr. Zuleima Carnes MD Referring Provider Active Start: June 18, 2025 End: June 18, 2025 Dr. Donis Dean MD Attending Provider Active Sta rt: June 18, 2025 End: June 18, 2025 Dr. Irene Powell MD Primary Care Provider Active Start: June 18, 2025 End: June 18, 2025 Team Status: Inactive Member Role/Relationship Status Dates Dr. Zuleima Carnes MD Primary Care Provider Active Start: March 19, 2025 End: March 19, 2025 Dr. Zuleima Carnes MD Referring Provider Active Start: March 19, 2025 End: March 19, 2025 Fadi BAY PA Attending Provider Active Start: March 19, 2025 End: March 19, 2025 Team Status: Inactive Member Role/Relationship Status Dates Dr. Irene Powell MD Primary Care Provider Active Start: June 10, 2025 End: June 10, 2025 Dr. Donis Dean MD Attending Provider Active Sta rt: June 10, 2025 End: June 10, 2025 Team Status: Inactive Member Role/Relationship Status Dates Dr. Zuleima Carnes MD Referring Provider Active Start: June 18, 2025 End: June 18, 2025 Dr. Donis Dean MD Attending Provider Active Sta rt: June 18, 2025 End: June 18, 2025 Dr. Irene Powell MD Primary Care Provider Active Start: June 18, 2025 End: June 18, 2025 Team Status: Inactive Member Role/Relationship Status Dates Dr. Irene Powell MD Primary Care Provider Active Start: July 08, 2025 End: July 08, 2025 Dr. Donis Dean MD Attending Provider Active Sta rt: July 08, 2025 End: July 08, 2025 Dr. Donis Dean MD Referring Provider Active Sta rt: July 08, 2025 End: July 08, 2025 Team Status: Inactive Member Role/Relationship Status Dates Dr. Irene Powell MD Primary Care Provider Active Start: June 10, 2025 End: June 10, 2025 Dr. Donis Dean MD Attending Provider Active Sta rt: June 10, 2025 End: June 10, 2025 Team Status: Inactive Member Role/Relationship Status Dates Dr. Zuleima Carnes MD Referring Provider Active Start: June 18, 2025 End: June 18, 2025 Dr. Donis Dean MD Attending Provider Active Sta rt: June 18, 2025 End: June 18, 2025 Dr. Irene Powell MD Primary Care Provider Active Start: June 18, 2025 End: June 18, 2025 Team Status: Inactive Member Role/Relationship Status Dates Dr. Irene Powell MD Primary Care Provider Active Start: July 08, 2025 End: July 08, 2025 Dr. Doins Dean MD Attending Provider Active Sta rt: July 08, 2025 End: July 08, 2025 Dr. Donis Dean MD Referring Provider Active Sta rt: July 08, 2025 End: July 08, 2025 Team Status: Inactive Member Role/Relationship Status Dates Dr. Zuleima Carnse MD Referring Provider Active Start: July 23, 2025 End: July 23, 2025 Dr. Irene Powell MD Primary Care Provider Active Start: July 23, 2025 End: July 23, 2025 Dr. Irene Powell MD Attending Provider Active Start: July 23, 2025 End: July 23, 2025 Goals (unrecognized section and content) Goals may be documented in a n alternate sectionGoals may be documented in an alternate sectionGoals may be documented in an alternate sectionGoals may be documented in an alternate sectionGoals may be documented in an alternate sectionGoals may be documented in an alternate sectionGoals may be documented in an alternate sectionGoals may be documented in an alternate sectionGoals may be documented in an alternate sectionGoals may be documented in an alternate sectionGoals may be documented in an alternate sectionGoals may be documented in an alternate sectionGoals may be documented in an alternate sectionGoals may be documented in an alternate section No data available for this section No data available for this section No data available for this section No data available for this section No data available for this sectionGoals may be documented in an alternate section No data available for this sectionGoals may be documented in an alternate sectionGoals may be documented in an alternate sectionGoals may be documented in an alternate sectionGoals may be documented in an alternate section Reason for Visit (unrecogniz ed section and content) Reason Onset Date Comments Care 03/18/2022 Reason Comments Post Op d&c Reason Comments HCG QUANT Results Reason Comments Orders Reason Comments HCG Quant Result Reason Comments Results Reason Onset Date Comments Insertion Of IUD 05/05/2022 Specialty Diagnoses / Procedures Referred By Mimi Referred To Contact [facility] Diagnoses Encounter for IUD insertion Procedures INSERT INTRAUTERINE DEVICE LEVONORGESTREL IU 52MG 5 YR INSERT INTRAUTERINE DEVICE REMOVE INTRAUTERINE DEVICE Loree Dasilva MD [address] [place] [address] [facility] [address] [place] [address] Referral ID Status Reason Start Date Expiration Date V isits Requested Visits Authorized [id number] Authorized 11/28/2021 11/27/2022 2 2 Reason Comments Results quant HCG Reason Comments Results (HCG Quant) Reason Comments bleeding after IUD Reason Comments Pelvic Pain Orders Reason Comments IUD Reason Comments Menstrual Problem Reason Onset Date Comments Yearly Exam 10/08/2022 Specialty Diagnoses / Procedures Referred By Mimi Referred To Contact [facility] Diagnoses Encounter for IUD removal Encounter for gynecological examination (general) (routine) without abnormal findings Procedures REMOVE INTRAUTERINE DEVICE REMOVE INTRAUTERINE DEVICE INTRAUT COPPER CONTRACEPTIVE WELLNESS EXAMS EST 18-39 YRS Loree Dasilva MD [address] [place] [address] [facility] [place] [address] Referral ID Status Reason Start Date Expiration Date V isits Requested Visits Authorized [id number] Closed Auto-Generate d Referral 09/21/2022 11/27/2022 1 1 Reason Comments Sinus Problem Sinus, congestion an d fatigue x 6 days Reason Comments Sore Throat With intermittent fe mahi & congestion x 3 days Reason Comments Cough With intermittent fe mahi & laryngitis x3 days FOR RECORDS PERTAINING TO PATIENTS WHO ARE OR HAVE BEEN ENROLLED IN A CHEMICAL DEPENDENCY/SUBSTANCEABUSE PROGRAM, SOME INFORMATION MAY BE OMITTED. This clinical summary was aggregated from multiple sources. Caution should be exercised in using it in the provision of clinical care. This summary normalizes information from multiple sources, and as a consequence, information in this document may materially change the coding, format and clinical context of patient data. In addition, data may be omitted in some cases. CLINICAL DECISIONS SHOULD BE BASED ON THE PRIMARY CLINICAL RECORDS. [facility]. provides no warranty or guarantee of the accuracy or completeness of information in this document.
[2025-08-01 08:39] LABS: Hematocrit 40.6 % (37-47); Hemoglobin 13.9 g/dL (12.0-15.0); Immature Granulocytes Count 0.010 X10^3/uL (0.0-0.0); Mean Corp Hgb Conc 34.2 g/dL (32-36); Mean Corpuscular Volume 83.9 fL (81-99); Mean Platelet Vol. 10.3 fl (6.2-12.0); NRBC Flagged by Analyzer 0 % (0-5); Platelet Count 308 K/mm3 (150-450); RBC Distribution Width CV 12.1 % (11.6-14.6); RBC Distribution Width SD 36.8 fl (35.1-43.9); Red Blood Count 4.84 M/mm3 (4.2-5.4); White Blood Count 4.3 K/mm3 (4.4-11.0)
[2025-08-01 09:40] LABS: AST(SGOT) 21 U/L (<=31); Alanine Aminotransfer ALT/SGPT 11 U/L (<=34); Albumin, Serum 4.7 g/dL (3.5-5.0); Alkaline Phosphatase 54 U/L (35-104); Anion Gap 12 (5-15); BUN 13 mg/dL (4-19); BUN/Creat Ratio 18.4 RATIO (10-20); Calcium,Total 9.2 mg/dL (7.6-11.0); Carbon Dioxide 22.8 mmol/L (21.0-32.0); Chloride 103 mmol/L (98-108); Globulin 2.7 g/dL (2.2-4.2); Glucose 114 mg/dL (70-99); Potassium 3.8 mmol/L (3.3-5.1); Vitamin D,25 Hydroxy 31.0 ng/mL (30-100)
[2025-08-01 09:55] LABS: Cholesterol 199 mg/dL (<=200); Low Density Lipoprotein Calc. 126 mg/dL; Triglycerides 45 mg/dL; Very Low Density Lipoprotein 9 mg/dL (5-40); cholesterol:hdl ratio screen 3.13
[2025-08-02 15:08] LABS: Anti-Chromatin <0.2 AI (0.0-0.9); Anti-Jo <0.2 AI (0.0-0.9); Anti-dsDNA Ab 1 IU/mL (0-9); SJOGREN'S Anti-SS-A test < 0.2 AI (0.0-0.9); SJOGREN'S Anti-SS-B test < 0.2 AI (0.0-0.9)
== END | disposition home or self-care (01) ==
LOC: LAB 07:29
PROVIDERS: Internal Medicine Endocrinology, Diabetes & Metabolism; PCP Internal Medicine; Visit Provider Internal Medicine
DX: E03.9 Hypothyroidism, unspecified (principal); R20.2 Paresthesia of skin; R53.83 Other fatigue; Z13.6 Encounter for screening for cardiovascular disorders; Z80.3 Family history of malignant neoplasm of breast
CPT/HCPCS: 36415; 80053; 80061; 82306; 83036; 84439; 84443; 85025; 86225; 86235

== ENCOUNTER → 2025-09-02 | Outpatient (CLI) | payer OTHER, SELFPAY ==
--- NOTE | 2025-09-02 12:10 | RAD_ITS ---
PROCEDURE: FOOT MIN 3 VIEWS 09/02/2025 REASON FOR EXAM: FALL, PAIN TECHNIQUE: Procedure Code: RADFO Modality: DX Procedure: FOOT MIN 3 VIEWS Laterality: Right COMPARISON: None. RAD/Foot min 3 Views IMPRESSION: On the lateral view, normal contour of the Achilles tendon is seen. No ankle j oint effusion is noted. No radiopaque foreign body is seen. No fracture or dislocation is seen. If clinical concern persists, short-term follow-up imaging may be obtained to r ule out a currently occult fracture. Reading Location: [place] [id number]
--- NOTE | 2025-09-02 12:10 | RAD_ITS ---
PROCEDURE: FOOT MIN 3 VIEWS 09/02/2025 REASON FOR EXAM: FALL, PAIN TECHNIQUE: Procedure Code: RADFO Modality: DX Procedure: FOOT MIN 3 VIEWS Laterality: Right COMPARISON: None. RAD/Foot min 3 Views IMPRESSION: On the lateral view, normal contour of the Achilles tendon is seen. No ankle j oint effusion is noted. No radiopaque foreign body is seen. No fracture or dislocation is seen. If clinical concern persists, short-term follow-up imaging may be obtained to r ule out a currently occult fracture. Reading Location: [place] [address]
== END | disposition home or self-care (01) ==
LOC: RAD 12:09
PROVIDERS: PCP Internal Medicine; Referring Provider Internal Medicine; Visit Provider Internal Medicine
DX: S99.921A Unspecified injury of right foot, initial encounter (principal)
CPT/HCPCS: 73630

== ENCOUNTER → 2025-10-08 | Outpatient (CLI) | payer OTHER, SELFPAY | END | disposition home or self-care (01) | LOC: LABSPEC 16:19 | PROVIDERS: PCP Internal Medicine; Visit Provider Nurse Practitioner Women's Health | DX: N89.8 Other specified noninflammatory disorders of vagina (principal) | CPT/HCPCS: 87070; 87205 ==

== ENCOUNTER → 2025-10-17 | Outpatient (CLI) | payer OTHER, SELFPAY ==
[2025-10-17 13:17] LABS: Follicle Stimulating Hormone 8.1 mIU/mL; Free T3 2.6 pg/mL (2.18-3.98); Vitamin D,25 Hydroxy 26.9 ng/mL (30-100)
[2025-10-18 04:07] LABS: PROGESTERONE 1.3 ng/mL (.)
== END | disposition home or self-care (01) ==
LOC: BWCLAB 08:35
PROVIDERS: PCP Internal Medicine; Visit Provider Nurse Practitioner Women's Health
DX: E03.8 Other specified hypothyroidism (principal); E55.9 Vitamin D deficiency, unspecified; E28.8 Other ovarian dysfunction; R53.81 Other malaise
CPT/HCPCS: 36415; 82306; 82627; 82670; 83001; 84144; 84403; 84439; 84443; 84481; 82626